=== PATIENT | female | born 1955 | race Caucasian/White ===

== ENCOUNTER 2021-06-03 19:17 | Inpatient (IN) | payer BC ==
--- NOTE | 2021-06-03 19:52 | ED ---
General Adult HPI - General Chief complaint: Shortness of Breath Stated complaint: COVID+, SOB, Nausea Vomiting Time Seen by Provider: 06/03/21 19:51 Source: patient Mode of arrival: wheelchair Limitations: no limitations - History of Present Illness Initial comments: Patient presents to the ED stating that she was diagnosed with Covid at [facility] yesterday, and she was admitted there overnight last night. She states that she did not receive any treatment besides IV steroids, and she was very upset with the care that she was receiving there, so today, she decided to leave AGAINST MEDICAL ADVICE, and she had her children bring her directly here in hopes for hospital admission here and better treatment/care. Patient states that she is not vaccinated against Covid. Patient states that her symptoms began about 1.5 weeks ago. Patient states that her symptoms initially began with muscle aches and headaches, but she then developed a cough and congestion. Patient states that she has been dyspneic for the past 2 days. Patient denies recent fever, focal numbness/weakness/neuro deficit, neck pain or stiffness, sore throat, chest pain or pressure, hemoptysis, palpitations, dizziness, nausea/vomiting/diarrhea, abdominal pain, dysuria or urinary symptoms, leg or calf swelling or pain, or any other symptoms or complaints. - Related Data Allergies Allergy/AdvReac Type Severity Reaction Status Date / Time clindamycin AdvReac Rash/Hives Verified 06/03/21 19:26 Penicillins AdvReac Rash/Hives Verified 06/03/21 19:26 Review of Systems ROS Statement: Those systems with pertinent positive or pertinent negative responses have been documented in the HPI. ROS Other: All systems not noted in ROS Statement are negative. Past Medical History Past Medical History: No Reported History History of Any Multi-Drug Resistant Organisms: None Reported Past Surgical History: Cholecystectomy Past Psychological History: No Psychological Hx Reported Smoking Status: Never smoker Past Alcohol Use History: None Reported Past Drug Use History: None Reported General Exam Limitations: no limitations General appearance: alert, in no apparent distress Head exam: Present: atraumatic, normocephalic Eye exam: Present: normal appearance, EOMI ENT exam: Present: mucous membranes moist Neck exam: Present: other (Trachea is in midline) Respiratory exam: Present: rhonchi, other (Equal breath sounds bilaterally). Absent: respiratory distress, wheezes, stridor Cardiovascular Exam: Present: normal rhythm, tachycardia, normal heart sounds, other (Normal radial pulses bilaterally) GI/Abdominal exam: Present: soft, other (Obese abdomen). Absent: tenderness, guarding Extremities exam: Present: other (Negative Homans sign bilaterally). Absent: tenderness, pedal edema, calf tenderness Neurological exam: Present: alert, oriented X3. Absent: motor sensory deficit Psychiatric exam: Present: normal affect, normal mood Skin exam: Present: warm, dry, intact, normal color Course Vital Signs 06/03/21 06/03/21 19:20 20:52 Temperature 98.9 F Pulse Rate 109 H 94 Respiratory 18 Rate Blood Pressure 151/77 O2 Sat by Pulse 84 L 91 L Oximetry - Reevaluation(s) Reevaluation #1: 06/03/21 21:41 Case, H&P and test results were discussed with Dr. Brown. He accepts hospital admission at this time. He recommends consulting Dr. Hopson (pulmonology). Given that the patient just had a CT angiogram of her chest performed at [facility] yesterday (due to elevated d-dimer), which showed no central pulmonary embolism (study was limited), he does not recommend repeating the patient's CT angiogram chest today. Instead, he recommends giving the patient a dose of Lovenox 40 mg subQ right now, and he states that Dr. Hopson will see the patient tomorrow and make further recommendations. He has no further recommendations at this time. 06/03/21 22:14 Patient denies development of any new symptoms while in the ED. Patient is aware of her test results, and she agrees with hospital admission at this time. EKG Findings - EKG Comments: EKG Findings:: Normal sinus rhythm, ventricular rate of 99 bpm, no ectopy, normal NE and QRS intervals, normal QT interval, normal axis, no ST or T-wave abnormality Medical Decision Making - Medical Decision Making Patient left from [facility] AMA after being admitted there last night. Patient came directly here to be admitted to our hospital, stating that she felt that we would give her better care. Patient's records were requested from [facility], and they were reviewed myself. Patient's imaging findings are suggestive of Covid pneumonia. Patient was treated with IV Decadron at [facility], so no IV Decadron was given here in the emergency department at this time. Dr. Brown has accepted hospital admission. Dr. Hopson (pulmonology) has been consulted. - Lab Data Result diagrams: 06/03/21 20:30 06/03/21 20:30 Lab Results 06/03/21 06/03/21 06/03/21 Range/Units 20:30 20:30 20:30 WBC 10.0 (3.8-10.6) k/uL RBC 4.27 (3.80-5.40) m/uL Hgb 12.9 (11.4-16.0) gm/dL Hct 38.7 (34.0-46.0) % MCV 90.6 (80.0-100.0) fL MCH 30.1 (25.0-35.0) pg MCHC 33.2 (31.0-37.0) g/dL RDW 12.9 (11.5-15.5) % Plt Count 286 (150-450) k/uL MPV 7.5 Neutrophils % 88 % Lymphocytes % 5 % Monocytes % 6 % Eosinophils % 0 % Basophils % 0 % Neutrophils # 8.8 H (1.3-7.7) k/uL Lymphocytes # 0.5 L (1.0-4.8) k/uL Monocytes # 0.6 (0-1.0) k/uL Eosinophils # 0.0 (0-0.7) k/uL Basophils # 0.0 (0-0.2) k/uL PT 10.5 (9.0-12.0) sec INR 1.0 (<1.2) APTT 23.6 (22.0-30.0) sec D-Dimer 1.07 H (<0.60) mg/L FEU Sodium 131 L (137-145) mmol/L Potassium 4.6 (3.5-5.1) mmol/L Chloride 98 (98-107) mmol/L Carbon Dioxide 25 (22-30) mmol/L Anion Gap 8 mmol/L BUN 15 (7-17) mg/dL Creatinine 0.58 (0.52-1.04) mg/dL Est GFR (CKD-EPI)AfAm >90 (>60 ml/min/1.73 sqM) Est GFR (CKD-EPI)NonAf >90 (>60 ml/min/1.73 sqM) Glucose 168 H (74-99) mg/dL Plasma Lactic Acid Zeb (0.7-2.0) mmol/L Calcium 8.4 (8.4-10.2) mg/dL Magnesium 2.0 (1.6-2.3) mg/dL Total Bilirubin 0.7 (0.2-1.3) mg/dL AST 192 H (14-36) U/L ALT 138 H (4-34) U/L Alkaline Phosphatase 105 (38-126) U/L Lactate Dehydrogenase 1568 H (313-618) U/L C-Reactive Protein 6.3 H (<1.0) mg/dL NT-Pro-B Natriuret Pep pg/mL Total Protein 6.8 (6.3-8.2) g/dL Albumin 3.3 L (3.5-5.0) g/dL Coronavirus (PCR) (Not Detectd) 06/03/21 06/03/21 06/03/21 Range/Units 20:30 20:30 20:45 WBC (3.8-10.6) k/uL RBC (3.80-5.40) m/uL Hgb (11.4-16.0) gm/dL Hct (34.0-46.0) % MCV (80.0-100.0) fL MCH (25.0-35.0) pg MCHC (31.0-37.0) g/dL RDW (11.5-15.5) % Plt Count (150-450) k/uL MPV Neutrophils % % Lymphocytes % % Monocytes % % Eosinophils % % Basophils % % Neutrophils # (1.3-7.7) k/uL Lymphocytes # (1.0-4.8) k/uL Monocytes # (0-1.0) k/uL Eosinophils # (0-0.7) k/uL Basophils # (0-0.2) k/uL PT (9.0-12.0) sec INR (<1.2) APTT (22.0-30.0) sec D-Dimer (<0.60) mg/L FEU Sodium (137-145) mmol/L Potassium (3.5-5.1) mmol/L Chloride (98-107) mmol/L Carbon Dioxide (22-30) mmol/L Anion Gap mmol/L BUN (7-17) mg/dL Creatinine (0.52-1.04) mg/dL Est GFR (CKD-EPI)AfAm (>60 ml/min/1.73 sqM) Est GFR (CKD-EPI)NonAf (>60 ml/min/1.73 sqM) Glucose (74-99) mg/dL Plasma Lactic Acid Zeb 1.4 (0.7-2.0) mmol/L Calcium (8.4-10.2) mg/dL Magnesium (1.6-2.3) mg/dL Total Bilirubin (0.2-1.3) mg/dL AST (14-36) U/L ALT (4-34) U/L Alkaline Phosphatase (38-126) U/L Lactate Dehydrogenase (313-618) U/L C-Reactive Protein (<1.0) mg/dL NT-Pro-B Natriuret Pep 53 pg/mL Total Protein (6.3-8.2) g/dL Albumin (3.5-5.0) g/dL Coronavirus (PCR) Detected A (Not Detectd) - Radiology Data Radiology results: report reviewed (Chest x-ray: Pulmonary edema. This could relate to RDS.) CT angiography chest with IV contrast: Disposition Clinical Impression: Pneumonia due to COVID-19 virus, Hypoxia Disposition: ADMITTED IP TO THIS [facility] Condition: Stable Is patient prescribed a controlled substance at d/c from ED?: No Time of Disposition: 21:58
--- NOTE | 2021-06-03 20:46 | XR ---
EXAMINATION TYPE: XR chest 1V portable DATE OF EXAM: 06/03/2021 COMPARISON: NONE HISTORY: Pneumonia TECHNIQUE: Single view FINDINGS: There is pulmonary interstitial and airspace edema. There are no hilar masses. Bony thorax is intact. IMPRESSION: Pulmonary edema. This could relate to RDS.
[2021-06-03 20:56] LABS: Basophils % (A) 0 %; Eosinophils % (A) 0 %; HCT 38.7 % (34.0-46.0); HGB 12.9 gm/dL (11.4-16.0); Lymphocytes # (A) 0.5 k/uL (1.0-4.8); Lymphocytes % (A) 5 %; MCH 30.1 pg (25.0-35.0); MCHC 33.2 g/dL (31.0-37.0); MCV 90.6 fL (80.0-100.0); Mean Platelet Volume 7.5; Monocytes # (A) 0.6 k/uL (0-1.0); Monocytes % (A) 6 %; Neutrophils # (A) 8.8 k/uL (1.3-7.7); Neutrophils % (A) 88 %; Platelet Count 286 k/uL (150-450); RBC 4.27 m/uL (3.80-5.40); RDW 12.9 % (11.5-15.5)
[2021-06-03 21:08] LABS: ALT 138 U/L (4-34); AST 192 U/L (14-36); African American GFR (CKD) >90 (>60 ml/min/1.73 sqM); Albumin 3.3 g/dL (3.5-5.0); Alkaline Phosphatase 105 U/L (38-126); Anion Gap 8 mmol/L; Blood Urea Nitrogen 15 mg/dL (7-17); C Reactive Protein 6.3 mg/dL (<1.0); Calcium 8.4 mg/dL (8.4-10.2); Carbon Dioxide 25 mmol/L (22-30); Chloride 98 mmol/L (98-107); Glucose 168 mg/dL (74-99); LDH 1568 U/L (313-618); Non-African American GFR(CKD) >90 (>60 ml/min/1.73 sqM); Potassium 4.6 mmol/L (3.5-5.1); Sodium 131 mmol/L (137-145); Total Bilirubin 0.7 mg/dL (0.2-1.3); Total Protein 6.8 g/dL (6.3-8.2)
[2021-06-03 21:23] LABS: Partial Thromboplastin Time 23.6 sec (22.0-30.0); Prothrombin Time 10.5 sec (9.0-12.0)
[2021-06-03] MEDS ORDERED: ENOXAPARIN 40 MG/0.4 ML SYRINGE SQ STA (21:43)
[2021-06-04] MEDS ORDERED: ACETAMINOPHEN TAB 500 MG TAB PO PRN (01:26)
[2021-06-04] MEDS: ALBUTEROL HFA INHALER INHALATION PRN ×4 (01:31→19:47)
[2021-06-04 07:48] LABS: Basophils % (A) 0 %; Eosinophils % (A) 0 %; HCT 40.3 % (34.0-46.0); HGB 13.2 gm/dL (11.4-16.0); Lymphocytes # (A) 0.9 k/uL (1.0-4.8); Lymphocytes % (A) 10 %; MCH 30.2 pg (25.0-35.0); MCHC 32.7 g/dL (31.0-37.0); MCV 92.5 fL (80.0-100.0); Mean Platelet Volume 7.7; Monocytes # (A) 0.7 k/uL (0-1.0); Monocytes % (A) 7 %; Neutrophils # (A) 7.9 k/uL (1.3-7.7); Neutrophils % (A) 81 %; Platelet Count 321 k/uL (150-450); RBC 4.36 m/uL (3.80-5.40); RDW 12.9 % (11.5-15.5); WBC 9.7 k/uL (3.8-10.6)
[2021-06-04 08:04] LABS: ALT 134 U/L (4-34); AST 140 U/L (14-36); African American GFR (CKD) >90 (>60 ml/min/1.73 sqM); Albumin 3.1 g/dL (3.5-5.0); Alkaline Phosphatase 112 U/L (38-126); Anion Gap 8 mmol/L; Blood Urea Nitrogen 13 mg/dL (7-17); Calcium 8.3 mg/dL (8.4-10.2); Carbon Dioxide 25 mmol/L (22-30); Chloride 100 mmol/L (98-107); Glucose 140 mg/dL (74-99); Non-African American GFR(CKD) >90 (>60 ml/min/1.73 sqM); Potassium 4.6 mmol/L (3.5-5.1); Sodium 133 mmol/L (137-145); Total Bilirubin 0.6 mg/dL (0.2-1.3); Total Protein 6.6 g/dL (6.3-8.2)
[2021-06-04] MEDS: SODIUM CHLORIDE 0.9% 1,000 ML IV SCH (12:21)
[2021-06-04 12:38] LABS: Appearance,Urine Clear (Clear); Bacteria,Urine Many /hpf; Bilirubin,Urine Negative (Negative); Blood,Urine Negative (Negative); Color,Urine Yellow; Glucose,Urine (UA) Negative (Negative); Ketones,Urine Negative (Negative); Leukocyte Esterase,Urine Large (Negative); Mucus,Urine Rare /hpf; Nitrite,Urine Positive (Negative); PH, Urine 6.5 (5.0-8.0); Protein,Urine 1+ (Negative); RBC,Urine 1 /hpf (0-5); Specific Gravity,Urine 1.013 (1.001-1.035); Squamous Epithelial Cell,Urine 1 /hpf (0-4); Urobilinogen,Urine <2.0 mg/dL (<2.0); WBC,Urine 46 /hpf (0-5)
[2021-06-04] MEDS: dexAMETHasone 2 MG TAB PO SCH (16:21)
[2021-06-04] MEDS: ZINC SULFATE 220 MG CAP PO SCH (16:21)
[2021-06-04] MEDS: CHOLECALCIFEROL 25 MCG (1000 IU) TABLET PO SCH (16:21)
--- NOTE | 2021-06-04 17:00 | P.CNPUL ---
History of Present Illness Consult date: 06/04/21 Requesting physician: Larry Brown Reason for consult: dyspnea, cough, hypoxemia, pneumonia, abnormal CXR/CT Chief complaint: Shortness of breath. History of present illness: Pulmonary consult dated 06/04/2021. 65-year-old female who presents to the emergency department on June 03 complaining of shortness of breath, nausea, and vomiting. Currently, her is in the hospital with coronavirus associated pneumonia. This patient is un-vaccinated. She apparently was recently diagnosed as having coronavirus infection, although she's been symptomatic for a number of days. She's been sick for at least a week and a half or so. She apparently was recently at [facility], and received some IV corticosteroids. She apparently was decided to leave AGAINST MEDICAL ADVICE. The patient complained of a number of symptoms including muscle aches, headaches, cough, congestion, and shortness of breath. The patient apparently does not have any significant past medical hi story, and only uses supplements at home she does have an ALLERGY to clindamycin, latex, and penicillin. Chest x-ray shows diffuse bilateral infiltrates. White count 9.7, hemoglobin 13.2, hematocrit 40.3, and platelet count 321,000. D-dimer was 1.07. Sodium 133, potassium 4.6, chlorides 100, CO2 25, anion gap 8, E1 13, with a creatinine of 0.49. AST 140, ALT 134. LDH 1568. C-reactive protein 6.3. Pro-calcitonin level is 0.11. Coronavirus testing on June 03 was positive. Review of Systems REVIEW OF SYSTEMS: CONSTITUTIONAL: Fever, chills, muscle aches, and joint aches. NEUROLOGIC: [ Negative.] HEENT: [ Negative.] CARDIAC: [Negative.] PULMONARY: Shortness of breath, cough, chest congestion. GI: Nausea and vomiting. : [Negative.] RHEUMATOLOGIC: [ Negative.] IMMUNOLOGIC: [ Negative.] ENDOCRINE: [Negative. ] DERMATOLOGIC: [Negative.] Past Medical History Past Medical History: No Reported History History of Any Multi-Drug Resistant Organisms: None Reported Past Surgical History: Cholecystectomy Past Psychological History: No Psychological Hx Reported Smoking Status: Never smoker Past Alcohol Use History: None Reported Past Drug Use History: None Reported - Past Family History Mother Family Medical History: No Reported History Medications and Allergies Home Medications Medication Instructions Recorded Confirmed Type Ascorbic Acid [Vitamin C] 1,000 mg PO DAILY 06/03/21 06/03/21 History Cholecalciferol (Vitamin D3) 125 mcg PO DAILY 06/03/21 06/03/21 History [Vitamin D3 (125 MCG = 5,000 IU)] Cyanocobalamin (Vitamin B-12) 1,000 mcg PO DAILY 06/03/21 06/03/21 History [Vitamin B-12] Multivitamins, Thera [Multivitamin 1 tab PO DAILY 06/03/21 06/03/21 History (formulary)] Selenium 100 mcg PO DAILY 06/03/21 06/03/21 History Thyroid Otc Supplement 1 tab PO DAILY 06/03/21 06/03/21 History Ubidecarenone [Co Q-10] 100 mg PO DAILY 06/03/21 06/03/21 History Zinc 50 mg PO DAILY 06/03/21 06/03/21 History Allergies Allergy/AdvReac Type Severity Reaction Status Date / Time clindamycin Allergy Severe Rash/Hives Verified 06/04/21 08:39 Penicillins Allergy Severe Rash/Hives Verified 06/04/21 08:39 latex Allergy Intermediate Itching Verified 06/04/21 08:39 Physical Exam Osteopathic Statement: *. No significant issues noted on an osteopathic structural exam other than those noted in the History and Physical/Consult. Vitals: Vital Signs Temp Pulse Pulse Resp BP BP Pulse Ox 06/04/21 14:00 97.5 F L 91 20 144/86 92 L 06/04/21 13:50 20 06/04/21 08:50 97.8 F 87 18 155/92 90 L 06/04/21 08:00 20 06/04/21 07:25 98.0 F 81 20 139/81 92 L 06/04/21 05:37 97.8 F 66 18 136/78 90 L 06/04/21 01:37 90 L 06/03/21 22:00 99.3 F 89 18 130/84 93 L 06/03/21 20:52 94 91 L 06/03/21 19:20 98.9 F 109 H 18 151/77 84 L Intake and Output 06/04/21 06/04/21 06/04/21 06:59 14:59 22:59 Intake Total 20 Output Total 100 Balance -80 Intake: Oral 20 Output: Urine 100 Other: # Voids 1 Weight 113.398 kg No acute distress, oriented 3. Currently on 5 L nasal cannula. Saturations between 90 and 92%. HEENT examination is grossly unremarkable. Neck supple. Full range of motion. No adenopathy thyromegaly or neck vein distention. Cardiovascular examination reveals regular rhythm rate. S1-S2 normal. No S3 or S4. No discernible murmur noted. Heart sounds are distant. Heart rate 91 bpm. Lungs reveal bilateral coarse rhonchi. Breath sounds are diminished. Crackles at the bases. Breath sounds are equal bilaterally. No wheezes. Abdomen soft bowel sounds are heard. No masses or tenderness. Extremities are intact. No cyanosis clubbing or edema. Skin is without rash or lesion. Neurologic examination is brief but nonfocal. Results - Laboratory Findings CBC and BMP: 06/04/21 07:06 06/04/21 07:06 PT/INR, D-dimer PT 10.5 sec (9.0-12.0) 06/03/21 20:30 INR 1.0 (<1.2) 06/03/21 20:30 D-Dimer 1.07 mg/L FEU (<0.60) H 06/03/21 20:30 Abnormal lab findings: Abnormal Labs 06/03/21 06/03/21 06/03/21 20:30 20:30 20:30 Neutrophils # 8.8 H Lymphocytes # 0.5 L D-Dimer 1.07 H Sodium 131 L Creatinine Glucose 168 H Calcium Ferritin 765.0 H AST 192 H ALT 138 H Lactate Dehydrogenase 1568 H C-Reactive Protein 6.3 H Albumin 3.3 L Procalcitonin Urine Protein Urine Nitrite Ur Leukocyte Esterase Urine WBC Urine WBC Clumps Urine Bacteria Urine Mucus Coronavirus (PCR) 06/03/21 06/03/21 06/04/21 20:30 20:45 07:06 Neutrophils # 7.9 H Lymphocytes # 0.9 L D-Dimer Sodium Creatinine Glucose Calcium Ferritin AST ALT Lactate Dehydrogenase C-Reactive Protein Albumin Procalcitonin 0.11 H Urine Protein Urine Nitrite Ur Leukocyte Esterase Urine WBC Urine WBC Clumps Urine Bacteria Urine Mucus Coronavirus (PCR) Detected A 06/04/21 06/04/21 07:06 12:18 Neutrophils # Lymphocytes # D-Dimer Sodium 133 L Creatinine 0.49 L Glucose 140 H Calcium 8.3 L Ferritin AST 140 H ALT 134 H Lactate Dehydrogenase C-Reactive Protein Albumin 3.1 L Procalcitonin Urine Protein 1+ H Urine Nitrite Positive H Ur Leukocyte Esterase Large H Urine WBC 46 H Urine WBC Clumps Occasional H Urine Bacteria Many H Urine Mucus Rare H Coronavirus (PCR) - Diagnostic Findings Chest x-ray: image reviewed Assessment and Plan Assessment: Acute hypoxemic respiratory failure secondary to coronavirus associated pneumonia. Mild transaminitis secondary to coronavirus infection. Obesity. Plan: Plan dated 06/04/2021. The patient is not a candidate for REM. The patient should get Lovenox 40 mg subcu daily, and also Decadron 6 mg a day. The patient also should receive vitamin C, vitamin D3, and zinc. The patient is not sick enough to receive monoclonal antibody against interleukin-6. The primary service is apparently treating her with Rocephin for a possible urinary tract infection. The pro- calcitonin level is relatively low. If she has asymptomatic bacteriuria, she should not be treated. We will continue to follow make recommendations where appropriate. Prognosis is guarded. The patient is un-vaccinated. So was her . Time with Patient: Greater than 30
[2021-06-04] MEDS: ENOXAPARIN 40 MG/0.4 ML SYRINGE SQ SCH (17:14)
--- NOTE | 2021-06-04 18:00 | US ---
EXAMINATION TYPE: US venous doppler duplex LE DATE OF EXAM: 06/04/2021 5:45 PM COMPARISON: NONE CLINICAL HISTORY: dvt. Shortness of breath. SIDE PERFORMED: Bilateral TECHNIQUE: The lower extremity deep venous system is examined utilizing real time linear array sonog marlen with graded compression, doppler sonography and color-flow sonography. VESSELS IMAGED: Common Femoral Vein Deep Femoral Vein Greater Saphenous Vein * Femoral Vein Popliteal Vein Small Saphenous Vein * Proximal Calf Veins (* superficial vessels) Exam is limited due to patient body habitus. Right Leg: Exam is limited in the groin, unable to evaluate upper CFV. No evidence of DVT in veins im aged at this time. Left Leg: Exam is limited in the groin, unable to evaluate upper CFV. No evidence of DVT in veins timoteo ged at this time. IMPRESSION: No evidence of deep vein thrombosis in the legs.
--- NOTE | 2021-06-04 18:15 | HP ---
HISTORY AND PHYSICAL DATE OF SERVICE: 06/04/2021. CHIEF COMPLAINT: Shortness of breath. HISTORY OF PRESENT ILLNESS: This 65-year-old woman with a past medical history of multiple medical problems, including cholecystectomy, was recently admitted with COVID-19 pneumonia to [facility]. Apparently the patient was offered remdesivir during that time by Infectious Disease, and the patient refused. The patient apparently left the hospital AGAINST MEDICAL ADVICE, signed out and presented to the ER with complaints of shortness of breath and cough and other symptoms. The patient is admitted for further evaluation and treatment at this time. The symptoms actually began about 10 days ago from now. There is no history of any fever, rigors or chills. No history of headache, loss of consciousness, seizures. The inflammatory markers of COVID-19 are elevated. Procalcitonin is 0.[address] Finch is following the patient closely. A chest x- ray which was reviewed personally by me showed extensive bilateral infiltrates, right more the left, indicating COVID-19 pneumonia. The patient is admitted for further evaluation and treatment. D-dimer is also elevated. There is no history of any fever, rigor or chills at this time. PAST MEDICAL HISTORY: History of cholecystectomy. HOME MEDICATIONS: Zinc, coenzyme Q,, multivitamins and vitamin B12, ascorbic acid. Doses are reviewed. ALLERGIES: CLINDAMYCIN, PENICILLIN, LATEX. FAMILY HISTORY: No history of heart disease or strokes in the family. SOCIAL HISTORY: No history of smoking. No history of alcohol intake. REVIEW OF SYSTEMS: ENT: No diminished hearing. No diminished vision. CARDIOVASCULAR SYSTEM: No angina, palpitations. RESPIRATORY SYSTEM: As mentioned earlier. GI: No nausea, vomiting, diarrhea. : No dysuria. NERVOUS SYSTEM: No numbness, weakness. ALLERGY/IMMUNOLOGY: No asthma or hay fever. MUSCULOSKELETAL: As mentioned earlier. HEMATOLOGY/ONCOLOGY: No history of anemia. ENDOCRINE: No history of diabetes or hypothyroidism. CONSTITUTIONAL: As mentioned earlier. DERMATOLOGY: Negative. RHEUMATOLOGY: Negative. PSYCHIATRY: As mentioned earlier. PHYSICAL EXAMINATION: Patient alert and oriented x3. Pulse 91, blood pressure 144/83, respiration 20, temperature 97.5, pulse ox 92% on room air. HEENT: Conjunctivae normal. NECK: No jugular venous distention. CARDIOVASCULAR: S1, S2 muffled. RESPIRATION: Breath sounds diminished at the bases. A few scattered rhonchi and crackles. ABDOMEN: Soft, obese, non-tender. LEGS: No edema. No swelling. NERVOUS SYSTEM: Higher functions as mentioned earlier. Moves all 4 limbs. No focal motor or sensory deficit. LYMPHATICS: No lymph node palpable in neck, axillae or groin. SKIN: No ulcer, rash, bleeding. JOINTS: No active deforming arthropathy. LABS: D-dimer is 1.07 ASSESSMENT: 1. Acute COVID-19 bilateral interstitial pneumonia with acute hypoxic respiratory failure. 2. Hyponatremia. 3. Elevated D-dimer. 4. Elevated inflammatory markers of COVID-19, including ferritin and LDH and CRP. 5. Elevated AST, ALT, possibly acute hepatitis secondary to COVID-19. 6. Elevated procalcitonin level. 7. Rule out urinary tract infection. 8. History of cholecystectomy. 9. FULL CODE. 10.Morbid obesity. RECOMMENDATIONS AND DISCUSSION: In this 65-year-old woman who presented with multiple complex medical issues, we will monitor the patient closely, continue the current medications, continue symptomatic treatment. I would recommend repeat CT angio to rule out the possibility of acute pulmonary embolism and ultrasound of the legs to rule out the possibility of DVT. Continue with the bronchodilators, Lovenox, usual regimen for COVID-19. I would also recommend empiric antibiotics and obtain cultures, including sputum culture. Closely follow. Pulmonary and Infectious Disease have been consulted. Guarded prognosis. Further recommendations to follow. I also recommend that the patient follow up with a primary physician in the outpatient setting. See orders for further details. MMODL / IJN: [id number] / MTDD
[2021-06-04] MEDS: ASCORBIC ACID 500 MG TAB PO SCH (20:38)
--- NOTE | 2021-06-04 22:46 | CT ---
EXAMINATION TYPE: CT angio chest DATE OF EXAM: 06/04/2021 COMPARISON: None HISTORY: Difficulty breathing, covid. CT DLP: 600.9 mGycm Automated exposure control for dose reduction was used. CONTRAST: Performed with IV Contrast, patient injected with 100ml mL of Isovue 370. Images obtained from the thoracic inlet to the diaphragm with IV contrast. There are 3-D post process ed images. There is patchy upper and lower lobe bilateral interstitial and airspace infiltrates. Heart is top no rmal in size. There is no pleural effusion. There is no pericardial effusion. There are bilateral bronchial lymph nodes up to 1.5 cm. There is no mediastinal adenopathy. Thoracic aorta is intact. There is no aneurysm or dissection. There is no evidence of filling defect in the pulmonary arteries. There is some spurring in the thoracic spine. There is no compression fracture. Ribs appear intact. S ternum is intact. IMPRESSION: No evidence of pulmonary embolism. Extensive pulmonary infiltrates consistent with multifocal pneumon ia and RDS.
[2021-06-05] MEDS: ALBUTEROL HFA INHALER INHALATION PRN ×2 (08:39→19:39)
--- NOTE | 2021-06-05 08:43 | P.CONS ---
History of Present Illness - Reason for Consult Consult date: 06/04/21 covid 19 pneumonia Requesting physician: Abby Mukherjee - Chief Complaint shortness of breath x few days - History of Present Illness History of present illness : Patient is 65-year-old female who is not vaccinated for COVID-19 presented initially to the [facility] for evaluation of increasing shortness of breath and cough in this patient symptom has been going on for more than 10 days patient was started on steroids anticoagulation and fluids patient did refused remdesivir at that facility even though it was offered to her, patient mention she was not getting better within 24 hours hence the patient left AGAINST MEDICAL ADVICE and her daughter brought her to the [facility] for evaluation patient symptoms started more than 10 days ago and initially has muscle aches and headaches subsequent developing cough and congestion and increasing shortness of breath for 2 days before presentation to the hospital on arrival to the ER patient was afebrile patient was hypoxic with O2 sats of 84% on room air is currently 90% on 6 L n heriberto cannula patient did have a normal white count with no lymphopenia D-dimer was mildly elevated creatinine is normal and he was under elevated did have a positive Covid test blood culture has been obtained patient did have a chest x- ray pulmonary edema could relate to RDS patient did have a CT angiogram of the chest no evidence of PE extensive pulmonary infiltrate consistent with multifocal pneumonia and ARDS patient was admitted to hospital infectious disease was consulted for further management Review of system: CONSTITUTIONAL: Positive for weakness denies high-grade fever. EYES: No complaint. ENT: No complaint. RESPIRATORY: As per history of present illness. CARDIOVASCULAR: No complaint. GENITOURINARY: No complaint. GASTROINTESTINAL: As per history of present illness. MUSCULOSKELETAL: No complaint. INTEGUMENTARY: No complaint. PSYCHOLOGIC: No complaint. ENDOCRINE: No complaint. NEUROLOGIC: No complaint. Past medical history : Reviewed, documented below Past surgical history : Reviewed, documented below Social history: Reviewed, documented below Medications: Reviewed, as documented below EXAMINATION: Vital sigans= Reviewed and documented below GENERAL DESCRIPTION: Middle-aged female lying in bed, no distress. No tachypnea or accessory muscle of respiration use. HEENT: Shows Pallor , no scleral icterus. Oral mucous membrane is dry. NECK: Trachea central, no thyromegaly. LUNGS: Unlabored breathing. Decrease intensity of breath sounds. No wheeze or crackle. HEART: S1, S2, regular rate and rhythm. ABDOMEN: Soft, no tenderness , guarding or rigidity EXTREMITIES: No edema of feet. SKIN: No rash, no masses palpable. NEUROLOGICAL: The patient is awake, alert, oriented x3, mood and affect normal. LABS AND RADIOLOGY: Reviewed results see below Assessment : Patient presented to hospital with increasing shortness of breath and cough in this patient symptom has been going on for more than 10 days patient did have evidence of hypoxemia and extensive multifocal pneumonia secondary to COVID-19 infection patient is currently out of the therapeutic window for remdesivir per [facility] policy and clinical suspicion low for secondary bacterial pneumonia Plan: 1-patient to continue with the dexamethasone Lovenox zinc and ascorbic acid 2-pt did refused remdesivir at [facility] and is out of 7 days window per [facility] policy and did not qualify for Barcinitab 3-droplet isolation and respiratory support We will follow on clinical condition and cultures to further adjust medication if needed Thank you for this consultation we will follow the patient along with you Past Medical History Past Medical History: No Reported History History of Any Multi-Drug Resistant Organisms: None Reported Past Surgical History: Cholecystectomy Past Psychological History: No Psychological Hx Reported Smoking Status: Never smoker Past Alcohol Use History: None Reported Past Drug Use History: None Reported - Past Family History Mother Family Medical History: No Reported History Medications and Allergies Home Medications Medication Instructions Recorded Confirmed Type Ascorbic Acid [Vitamin C] 1,000 mg PO DAILY 06/03/21 06/03/21 History Cholecalciferol (Vitamin D3) 125 mcg PO DAILY 06/03/21 06/03/21 History [Vitamin D3 (125 MCG = 5,000 IU)] Cyanocobalamin (Vitamin B-12) 1,000 mcg PO DAILY 06/03/21 06/03/21 History [Vitamin B-12] Multivitamins, Thera [Multivitamin 1 tab PO DAILY 06/03/21 06/03/21 History (formulary)] Selenium 100 mcg PO DAILY 06/03/21 06/03/21 History Thyroid Otc Supplement 1 tab PO DAILY 06/03/21 06/03/21 History Ubidecarenone [Co Q-10] 100 mg PO DAILY 06/03/21 06/03/21 History Zinc 50 mg PO DAILY 06/03/21 06/03/21 History Allergies Allergy/AdvReac Type Severity Reaction Status Date / Time clindamycin Allergy Severe Rash/Hives Verified 06/04/21 08:39 Penicillins Allergy Severe Rash/Hives Verified 06/04/21 08:39 latex Allergy Intermediate Itching Verified 06/04/21 08:39 Physical Exam Vitals: Vital Signs Temp Pulse Pulse Resp BP BP Pulse Ox 06/04/21 14:00 97.5 F L 91 20 144/86 92 L 06/04/21 13:50 20 06/04/21 08:50 97.8 F 87 18 155/92 90 L 06/04/21 08:00 20 06/04/21 07:25 98.0 F 81 20 139/81 92 L 06/04/21 05:37 97.8 F 66 18 136/78 90 L 06/04/21 01:37 90 L 06/03/21 22:00 99.3 F 89 18 130/84 93 L 06/03/21 20:52 94 91 L 06/03/21 19:20 98.9 F 109 H 18 151/77 84 L Intake and Output 06/04/21 06/04/21 06/04/21 06:59 14:59 22:59 Intake Total 20 Output Total 100 Balance -80 Intake: Oral 20 Output: Urine 100 Other: Weight 113.398 kg Results CBC & Chem 7: 06/04/21 07:06 06/04/21 07:06 Labs: Abnormal Lab Results - Last 24 Hours (Table) 06/03/21 06/03/21 06/03/21 Range/Units 20:30 20:30 20:30 Neutrophils # 8.8 H (1.3-7.7) k/uL Lymphocytes # 0.5 L (1.0-4.8) k/uL D-Dimer 1.07 H (<0.60) mg/L FEU Sodium 131 L (137-145) mmol/L Creatinine (0.52-1.04) mg/dL Glucose 168 H (74-99) mg/dL Calcium (8.4-10.2) mg/dL Ferritin 765.0 H (10.0-291.0) ng/mL AST 192 H (14-36) U/L ALT 138 H (4-34) U/L Lactate Dehydrogenase 1568 H (313-618) U/L C-Reactive Protein 6.3 H (<1.0) mg/dL Albumin 3.3 L (3.5-5.0) g/dL Procalcitonin (0.02-0.09) ng/mL Urine Protein (Negative) Urine Nitrite (Negative) Ur Leukocyte Esterase (Negative) Urine WBC (0-5) /hpf Urine WBC Clumps (None) /hpf Urine Bacteria (None) /hpf Urine Mucus (None) /hpf Coronavirus (PCR) (Not Detectd) 06/03/21 06/03/21 06/04/21 Range/Units 20:30 20:45 07:06 Neutrophils # 7.9 H (1.3-7.7) k/uL Lymphocytes # 0.9 L (1.0-4.8) k/uL D-Dimer (<0.60) mg/L FEU Sodium (137-145) mmol/L Creatinine (0.52-1.04) mg/dL Glucose (74-99) mg/dL Calcium (8.4-10.2) mg/dL Ferritin (10.0-291.0) ng/mL AST (14-36) U/L ALT (4-34) U/L Lactate Dehydrogenase (313-618) U/L C-Reactive Protein (<1.0) mg/dL Albumin (3.5-5.0) g/dL Procalcitonin 0.11 H (0.02-0.09) ng/mL Urine Protein (Negative) Urine Nitrite (Negative) Ur Leukocyte Esterase (Negative) Urine WBC (0-5) /hpf Urine WBC Clumps (None) /hpf Urine Bacteria (None) /hpf Urine Mucus (None) /hpf Coronavirus (PCR) Detected A (Not Detectd) 06/04/21 06/04/21 Range/Units 07:06 12:18 Neutrophils # (1.3-7.7) k/uL Lymphocytes # (1.0-4.8) k/uL D-Dimer (<0.60) mg/L FEU Sodium 133 L (137-145) mmol/L Creatinine 0.49 L (0.52-1.04) mg/dL Glucose 140 H (74-99) mg/dL Calcium 8.3 L (8.4-10.2) mg/dL Ferritin (10.0-291.0) ng/mL AST 140 H (14-36) U/L ALT 134 H (4-34) U/L Lactate Dehydrogenase (313-618) U/L C-Reactive Protein (<1.0) mg/dL Albumin 3.1 L (3.5-5.0) g/dL Procalcitonin (0.02-0.09) ng/mL Urine Protein 1+ H (Negative) Urine Nitrite Positive H (Negative) Ur Leukocyte Esterase Large H (Negative) Urine WBC 46 H (0-5) /hpf Urine WBC Clumps Occasional H (None) /hpf Urine Bacteria Many H (None) /hpf Urine Mucus Rare H (None) /hpf Coronavirus (PCR) (Not Detectd)
[2021-06-05] MEDS: CHOLECALCIFEROL 25 MCG (1000 IU) TABLET PO SCH (09:00)
[2021-06-05] MEDS: dexAMETHasone 2 MG TAB PO SCH (09:00)
[2021-06-05] MEDS: SODIUM CHLORIDE 0.9% 1,000 ML IV SCH (09:00)
[2021-06-05] MEDS: ZINC SULFATE 220 MG CAP PO SCH (09:01)
[2021-06-05] MEDS: ENOXAPARIN 40 MG/0.4 ML SYRINGE SQ SCH ×2 (09:01→21:43)
[2021-06-05] MEDS: ASCORBIC ACID 500 MG TAB PO SCH ×2 (09:01→21:43)
[2021-06-05 09:18] LABS: HCT 37.9 % (37.2-46.3); MCH 29.9 pg (27.0-32.0); MCHC 31.7 g/dL (32.0-37.0); MCV 94.3 fL (80.0-97.0); Mean Platelet Volume 9.6 fL (9.5-12.2); Platelet Count 373 X 10*3/uL (140-440); RBC 4.02 X 10*6/uL (4.10-5.20); RDW 13.7 % (11.5-14.5); WBC 10.71 X 10*3/uL (4.50-10.00)
[2021-06-05 09:30] LABS: African American GFR (CKD) 118.2 (60.0-200.0); Anion Gap 13.3 mmol/L (10.00-18.00); BUN/Creat Ratio 25.58 Ratio (12.00-20.00); Blood Urea Nitrogen 13.2 mg/dL (9.0-27.0); Calcium 8.2 mg/dL (8.7-10.3); Carbon Dioxide 21.3 mmol/L (20.0-27.5); Non-African American GFR(CKD) 101.9 (60.0-200.0); Potassium 4.8 mmol/L (3.5-5.5)
[2021-06-05 10:13] LABS: Basophils # (M) 0 X 10*3/uL (0.00-0.10); Eosinophils # (M) 0 X 10*3/uL (0.04-0.35); Lymphocytes # (M) 0.32 X 10*3/uL (0.90-5.00); Metamyelocytes % 3 % (0-0); Monocytes # (M) 0.21 X 10*3/uL (0.20-1.00); Neutrophils # (M) 9.85 X 10*3/uL (2.00-8.90); Neutrophils % (M) 92 %
--- NOTE | 2021-06-05 18:22 | P.PN ---
Subjective Progress Note Date: 06/05/21 on today's evaluation of 06/05/2021, the patient is on 6 L of oxygen by nasal cannula. There is a morbidly obese female patient with currently has COVID 19 related pneumonia. The patient is currently on Decadron and she was outside the window for Remdesivir. The patient is not having any major respiratory difficulties. Her breathing is nonlabored. She is having her dinner and she has a good appetite. No other significant events otherwise for now. She also has an underlying gram-negative bacillus in her urine consistent with UTI and the patient is currently on IV Rocephin. She is afebrile. She is hemodynamically stable. Note that the patient was recently at [facility]. She received some IV steroids. She decided to leave AGAINST MEDICAL ADVICE and she ended up coming and being hospitalized in our hospital. Objective - Vital Signs Vital signs: Vital Signs Temp 97.7 F 06/05/21 14:00 Pulse 90 06/05/21 14:00 Resp 20 06/05/21 14:00 BP 175/70 06/05/21 14:00 Pulse Ox 93 L 06/05/21 14:00 Intake & Output 06/04/21 06/05/21 06/05/21 18:59 06:59 18:59 Intake Total 20 100 360 Output Total 100 1 Balance -80 100 359 Weight 113.398 kg Intake: Oral 20 100 360 Output: Urine 100 Urine/Stool Mix 1 Other: Voiding Method Bedside Commode # Voids 1 2 1 - Exam No acute distress, oriented 3. Currently on 6 L nasal cannula. Saturations between 90 and 92%. HEENT examination is grossly unremarkable. Neck supple. Full range of motion. No adenopathy thyromegaly or neck vein distention. Cardiovascular examination reveals regular rhythm rate. S1-S2 normal. No S3 or S4. No discernible murmur noted. Heart sounds are distant. Heart rate 91 bpm. Lungs reveal bilateral coarse rhonchi. Breath sounds are diminished. Crackles at the bases. Breath sounds are equal bilaterally. No wheezes. Abdomen soft bowel sounds are heard. No masses or tenderness. Extremities are intact. No cyanosis clubbing or edema. Skin is without rash or lesion. Neurologic examination is brief but nonfocal. - Labs CBC & Chem 7: 06/05/21 05:38 06/05/21 05:38 Labs: Abnormal Lab Results - Last 24 Hours (Table) 06/05/21 06/05/21 Range/Units 05:38 05:38 WBC 10.71 H (4.50-10.00) X 10*3/uL RBC 4.02 L (4.10-5.20) X 10*6/uL MCHC 31.7 L (32.0-37.0) g/dL Metamyelocytes % 3 H (0-0) % Neutrophils # (Manual) 9.85 H (2.00-8.90) X 10*3/uL Lymphocytes # (Manual) 0.32 L (0.90-5.00) X 10*3/uL Eosinophils # (Manual) 0 L (0.04-0.35) X 10*3/uL Creatinine 0.5 L (0.6-1.5) mg/dL BUN/Creatinine Ratio 25.58 H (12.00-20.00) Ratio Glucose 149 H (70-110) mg/dL Calcium 8.2 L (8.7-10.3) mg/dL Microbiology - Last 24 Hours (Table) 06/04/21 12:18 Urine Culture - Preliminary Urine,Clean Catch Gram Neg Bacilli 06/03/21 20:45 Blood Culture - Preliminary Blood No Growth after 24 hours 06/03/21 20:30 Blood Culture - Preliminary Blood No Growth after 24 hours Assessment and Plan Plan: 1 Acute hypoxemic respiratory failure secondary to coronavirus associated pneumonia.. The patient is currently on Decadron and the patient was outside the window for Remdesivir. Inflammatory markers were checked. D-dimer is mildly elevated. The patient is currently on Lovenox 30 mg subcu for DVT prophylaxis. 2 morbid obesity 3 gram-negative bacillus in the urine consistent with UTI and the patient is currently on IV Rocephin 4 Mild transaminitis secondary to coronavirus infection. Plan Monitor the oxygenation Repeat inflammatory markers for tomorrow Continue Decadron for now Continue IV Rocephin pending further cultures from the urine Continues incentive spirometer Clinically stable and the patient has good appetite. We'll continue to follow.
--- NOTE | 2021-06-05 23:34 | PN ---
PROGRESS NOTE DATE OF SERVICE: 06/05/2021 REASON FOR FOLLOWUP: Acute COVID-19 pneumonia. INTERVAL HISTORY: The patient is afebrile. The patient is breathing slightly comfortably. The patient denies having any chest pain or worsening cough or sputum production. No abdominal pain or diarrhea. PHYSICAL EXAMINATION: Blood pressure 175/70 with a pulse of 90, temperature 97.7. She is 93% on 6 L nasal cannula. General description is a middle-aged female lying in bed in no distress. Respiratory system: Unlabored breathing, decreased intensity of breath sounds. No wheeze. Heart S1, S2. Regular rate and rhythm. Abdomen soft, no tenderness. LABS: Hemoglobin is 12, white count 10.71. Urine is showing a Gram-negative. CT angiogram of the chest: no evidence of PE, extensive pulmonary infiltrate consistent with multifocal pneumonia. ASSESSMENT: 1. Acute respiratory failure secondary to COVID-19 pneumonia. Patient is out of the therapeutic window for remdesivir. Patient to continue dexamethasone, Lovenox, zinc and ascorbic acid. 2. Positive urine culture with Gram-negative possible urinary tract infection, covered with Rocephin. Monitor clinical course closely. MMODL / IJN: [id number] /
--- NOTE | 2021-06-05 23:44 | P.PN ---
Subjective Progress Note Date: 06/05/21 06/05/2021 Patient evaluated today resting in bed. She states overall she is feeling better. Her oxygen saturation today was about 88% on 6L HF cannula, lungs do sound coarse but with increased aeration. She is using her spirometer. Chest CTA was negative for PE, Doppler negative for bilateral DVT. Urine culture positive for gram negative bacilli, she however does not have any complaints of dysuria, urgency, or frequency. She was started on rocephin empirically. Labs today show WBC of 10.71, sodium 135, glucose 140s, AST 140, ALT 134. She is being followed by ID and pulmonary services. Blood pressure today 175/70, heart rate 90, afebrile. ROS Constitutional: Denied any fatigue denied any fever. Cardio vascular: denied any chest pain, palpitations Gastrointestinal denied any nausea vomiting Pulmonary: Reports SOB, cough Neurologic denied any new focal deficits All inpatient medications were reviewed and appropriate changes in these medications as dictated in the interval history and assessment and plan. PHYSICAL EXAMINATION: GENERAL: The patient is alert and oriented x3, not in any acute distress. Well developed, well nourished. HEENT: Pupils are round and equally reacting to light. EOMI. No scleral icterus. No conjunctival pallor. Normocephalic, atraumatic. No pharyngeal erythema. No thyromegaly. CARDIOVASCULAR: S1 and S2 present. No murmurs, rubs, or gallops. PULMONARY: ABDOMEN: Soft, nontender, nondistended, normoactive bowel sounds. No palpable organomegaly. MUSCULOSKELETAL: No joint swelling or deformity. EXTREMITIES: No cyanosis, clubbing, or pedal edema. NEUROLOGICAL: Gross neurological examination did not reveal any focal deficits. SKIN: No rashes. Assessment and plan Assessment Acute hypoxic respiratory failures secondary to COVID 19 requiring 6L HF nasal cannula Acute COVID 19 pneumonia UTI present on admission, positive urine culture Leukocytosis secondary to above Elevated procalcitonin Hypertension Elevated inflammatory markers of COVID-19 Elevated DD no evidence of pulmonary embolism Hyperglycemia Obesity History of cholecystectomy GI Prophylaxis DVT Prophylaxis: Lovenox Plan Finalized cultures pending Titrate oxygen as needed Continue IV antibiotics Continue decadron, lovenox, vitamins Added novolog for glycemic control Added lisinopril Continue all other supportive care Encourage IS, ambulation Prognosis guarded Objective - Vital Signs Vital signs: Vital Signs Temp 97.8 F 06/05/21 07:45 Pulse 83 06/05/21 07:45 Resp 20 06/05/21 07:45 BP 157/85 06/05/21 07:45 Pulse Ox 87 L 06/05/21 07:45 Intake & Output 06/04/21 06/05/21 06/05/21 18:59 06:59 18:59 Intake Total 20 100 360 Output Total 100 1 Balance -80 100 359 Weight 113.398 kg Intake: Oral 20 100 360 Output: Urine 100 Urine/Stool Mix 1 Other: Voiding Method Bedside Commode # Voids 1 2 1 - Labs CBC & Chem 7: 06/05/21 05:38 06/05/21 05:38 Labs: Abnormal Lab Results - Last 24 Hours (Table) 06/05/21 06/05/21 Range/Units 05:38 05:38 WBC 10.71 H (4.50-10.00) X 10*3/uL RBC 4.02 L (4.10-5.20) X 10*6/uL MCHC 31.7 L (32.0-37.0) g/dL Metamyelocytes % 3 H (0-0) % Neutrophils # (Manual) 9.85 H (2.00-8.90) X 10*3/uL Lymphocytes # (Manual) 0.32 L (0.90-5.00) X 10*3/uL Eosinophils # (Manual) 0 L (0.04-0.35) X 10*3/uL Creatinine 0.5 L (0.6-1.5) mg/dL BUN/Creatinine Ratio 25.58 H (12.00-20.00) Ratio Glucose 149 H (70-110) mg/dL Calcium 8.2 L (8.7-10.3) mg/dL Microbiology - Last 24 Hours (Table) 06/04/21 12:18 Urine Culture - Preliminary Urine,Clean Catch Gram Neg Bacilli 06/03/21 20:45 Blood Culture - Preliminary Blood No Growth after 24 hours 06/03/21 20:30 Blood Culture - Preliminary Blood No Growth after 24 hours
[2021-06-06] MEDS: SODIUM CHLORIDE 0.9% 1,000 ML IV SCH ×2 (05:02→09:40)
[2021-06-06 08:11] LABS: Glucose,Whole Blood 107 mg/dL (75-99)
[2021-06-06] MEDS: ALBUTEROL HFA INHALER INHALATION PRN ×4 (08:41→21:24)
[2021-06-06] MEDS: INSULIN ASPART (NovoLOG) 100 UNIT/ML VIAL SQ SCH ×4 (09:08→21:46)
[2021-06-06] MEDS: ENOXAPARIN 40 MG/0.4 ML SYRINGE SQ SCH ×2 (09:22→20:44)
[2021-06-06] MEDS: lisinopriL 5 MG TAB PO SCH (09:23)
[2021-06-06] MEDS: ZINC SULFATE 220 MG CAP PO SCH (09:23)
[2021-06-06] MEDS: CYANOCOBALAMIN 500 MCG TAB PO SCH (09:23)
[2021-06-06] MEDS: ASCORBIC ACID 500 MG TAB PO SCH ×2 (09:23→20:44)
[2021-06-06] MEDS: MULTIVITAMINS, THERA 1 EACH TAB PO SCH (09:23)
[2021-06-06] MEDS: CHOLECALCIFEROL 25 MCG (1000 IU) TABLET PO SCH (09:23)
[2021-06-06] MEDS: dexAMETHasone 2 MG TAB PO SCH (09:37)
[2021-06-06 09:43] LABS: Basophils # (A) 0.1 k/uL (0-0.2); Basophils % (A) 1 %; Eosinophils % (A) 0 %; HCT 42.5 % (34.0-46.0); HGB 13.5 gm/dL (11.4-16.0); Lymphocytes # (A) 1.4 k/uL (1.0-4.8); Lymphocytes % (A) 8 %; MCH 29.6 pg (25.0-35.0); MCHC 31.8 g/dL (31.0-37.0); MCV 93.3 fL (80.0-100.0); Mean Platelet Volume 8.1; Monocytes # (A) 1.2 k/uL (0-1.0); Monocytes % (A) 7 %; Neutrophils # (A) 14.9 k/uL (1.3-7.7); Neutrophils % (A) 83 %; Platelet Count 532 k/uL (150-450); RBC 4.56 m/uL (3.80-5.40); RDW 13.3 % (11.5-15.5)
[2021-06-06 09:49] LABS: ALT 182 U/L (4-34); AST 128 U/L (14-36); African American GFR (CKD) >90 (>60 ml/min/1.73 sqM); Albumin 3.3 g/dL (3.5-5.0); Albumin/Globulin Ratio 0.9; Alkaline Phosphatase 109 U/L (38-126); Anion Gap 8 mmol/L; Blood Urea Nitrogen 15 mg/dL (7-17); Calcium 8.5 mg/dL (8.4-10.2); Carbon Dioxide 28 mmol/L (22-30); Chloride 101 mmol/L (98-107); Globulin 3.6 g/dL; Glucose 121 mg/dL (74-99); Non-African American GFR(CKD) >90 (>60 ml/min/1.73 sqM); Potassium 4.2 mmol/L (3.5-5.1); Sodium 137 mmol/L (137-145); Total Bilirubin 0.6 mg/dL (0.2-1.3); Total Protein 6.9 g/dL (6.3-8.2)
--- NOTE | 2021-06-06 11:16 | P.PN ---
Subjective Progress Note Date: 06/06/21 Principal diagnosis: CoVID 19 pneumonia The patient is seen today 06/06/2021 in follow-up on the regular medical floor. She is currently sitting up in bed. Awake and alert in no acute distress. Her oxygen requirements however continued to climb. She is now on 10 L high flow nasal cannula to maintain O2 saturation in the high 80s low 90s. She is morbidly obese. She has been treated for COVID-19 pneumonia. She was outside the window for Remdesivir. She is not vaccinated. Her CAT scan yesterday ruled out pulmonary embolism. There is however extensive bilateral opacities consistent with COVID-19 pneumonia. She also was treated for an E. coli UTI and remains on IV Rocephin. She is not a candidate for Baricitinib. White count 18.0. Hemoglobin 13.5. Lymphocytes 0.32. D-dimer 1.08. Sodium 137. Potassium 4.2. Creatinine 0.52. AST 128. ALT 182. LDH 581. She remains on Lovenox, Decadron, vitamin supplements. 0.9 normal saline at 50 MLS per hour. Objective - Vital Signs Vital signs: Vital Signs Temp 97.8 F 06/06/21 07:45 Pulse 94 06/06/21 07:45 Resp 18 06/06/21 08:00 BP 168/95 06/06/21 07:45 Pulse Ox 85 L 06/06/21 07:45 Intake & Output 06/05/21 06/06/21 06/06/21 18:59 06:59 18:59 Intake Total 480 500 180 Output Total 1 Balance 479 500 180 Intake: Oral 480 500 180 Output: Urine/Stool Mix 1 Other: Voiding Method Bedside Commode Bedside Commode # Voids 1 1 # Bowel Movements 1 1 - Exam GENERAL EXAM: Alert, pleasant 65-year-old morbidly obese female patient, on 10 L high flow nasal cannula, comfortable in no apparent distress. HEAD: Normocephalic. EYES: Normal reaction of pupils, equal size. NOSE: Clear with pink turbinates. THROAT: No erythema or exudates. NECK: No masses, no JVD. CHEST: No chest wall deformity. LUNGS: Equal air entry with coarse crackles in the bilateral bases. CVS: S1 and S2 normal with no audible murmur, regular rhythm. ABDOMEN: No hepatosplenomegaly, normal bowel sounds, no guarding or rigidity. SPINE: No scoliosis or deformity SKIN: No rashes CENTRAL NERVOUS SYSTEM: No focal deficits, tone is normal in all 4 extremities. EXTREMITIES: There is no peripheral edema. No clubbing, no cyanosis. Peripheral pulses are intact. - Labs CBC & Chem 7: 06/06/21 06:14 06/06/21 06:14 Labs: Abnormal Lab Results - Last 24 Hours (Table) 06/06/21 06/06/21 06/06/21 Range/Units 06:14 06:14 06:14 WBC 18.0 H (3.8-10.6) k/uL Plt Count 532 H (150-450) k/uL Neutrophils # 14.9 H (1.3-7.7) k/uL Monocytes # 1.2 H (0-1.0) k/uL D-Dimer 1.08 H (<0.60) mg/L FEU Glucose (74-99) mg/dL POC Glucose (mg/dL) (75-99) mg/dL AST (14-36) U/L ALT (4-34) U/L Lactate Dehydrogenase 581 H (120-246) U/L Albumin (3.5-5.0) g/dL 06/06/21 06/06/21 Range/Units 06:14 08:10 WBC (3.8-10.6) k/uL Plt Count (150-450) k/uL Neutrophils # (1.3-7.7) k/uL Monocytes # (0-1.0) k/uL D-Dimer (<0.60) mg/L FEU Glucose 121 H (74-99) mg/dL POC Glucose (mg/dL) 107 H (75-99) mg/dL AST 128 H (14-36) U/L ALT 182 H (4-34) U/L Lactate Dehydrogenase (120-246) U/L Albumin 3.3 L (3.5-5.0) g/dL Microbiology - Last 24 Hours (Table) 06/04/21 12:18 Urine Culture - Final Urine,Clean Catch Escherichia coli 06/03/21 20:45 Blood Culture - Preliminary Blood No Growth after 48 hours 06/03/21 20:30 Blood Culture - Preliminary Blood No Growth after 48 hours Assessment and Plan Assessment: 1 Acute hypoxemic respiratory failure secondary to COVID-19 pneumonia. Outside the window for Remdesivir. Not vaccinated. Now with a E. coli UTI. Not qualifying for Baricitinib. Currently on 10 L high flow nasal cannula. Computed tomography scan of the chest ruled out pulmonary embolism. There is extensive bilateral patchy densities consistent with CoVID pneumonia. 2 Morbid obesity 3 urinary tract infection secondary to E. coli, currently on IV Rocephin For Mild transaminitis secondary to COVID-19 infection Plan: She was seen and evaluated Continued on Decadron, Lovenox, vitamin supplements Encouraged to increase use the incentive spirometer Computed tomography scan reveals extensive bilateral pneumonia Oxygen requirements have increased currently on 10 L high flow nasal cannula Titrate the FiO2 as tolerated Increase her activity as tolerated Condition is guarded We will continue to follow and make further recommendations based on her clinical status I, the cosigning physician, performed a history & physical examination of the patient. Lungs sounds with coarse crackles in the bilateral bases. Maintaining good O2 saturations in the 90s on 10 L high flow nasal cannula. I discussed the assessment and plan of care with my nurse practitioner, Ivone Lopez. I attest to the above note as dictated by her.
[2021-06-06 11:21] LABS: C Reactive Protein 2.5 mg/dL (0.00-0.80)
[2021-06-06 11:46] LABS: Glucose,Whole Blood 136 mg/dL (75-99)
--- NOTE | 2021-06-06 14:50 | XR ---
EXAMINATION TYPE: XR chest 1V portable DATE OF EXAM: 06/06/2021 COMPARISON: Chest x-ray 06/03/2021 HISTORY: Hypoxia, abnormal chest x-ray TECHNIQUE: Single frontal view of the chest is obtained. FINDINGS: Findings are similar to prior exam, there is extensive bilateral airspace disease. No evid ent pneumothorax or pleural effusion. Heart is stable. There are overlying artifacts. IMPRESSION: Correlate for pneumonia, edema
--- NOTE | 2021-06-06 15:54 | P.PN ---
Subjective Progress Note Date: 06/06/21 06/05/2021 Patient evaluated today resting in bed. She states overall she is feeling better. Her oxygen saturation today was about 88% on 6L HF cannula, lungs do sound coarse but with increased aeration. She is using her spirometer. Chest CTA was negative for PE, Doppler negative for bilateral DVT. Urine culture positive for gram negative bacilli, she however does not have any complaints of dysuria, urgency, or frequency. She was started on rocephin empirically. Labs today show WBC of 10.71, sodium 135, glucose 140s, AST 140, ALT 134. She is being followed by ID and pulmonary services. Blood pressure today 175/70, heart rate 90, afebrile. 06/06/2021 Patient is noticing the bed. Unfortunately throughout the night she is now requiring 15L HF NC as she desatted on 6L HF. She denies any increasing or new shortness of breath, reports cough. She is using her spirometer. Labs today show a white count of 18, d-dimer 1.08, sodium 137, potassium 4.2, blood glucose in the 120s, AST 128, ALT 182, LDH 581, CRP 2.50. Urine culture is finalized as E. coli, on antibiotics. Repeat chest x-ray today shows correlate for pneumonia, edema. She has been followed closely by ID and pulmonary services. She continues on Decadron, Lovenox, zinc, vitamins. ROS Constitutional: Denied any fatigue denied any fever. Cardio vascular: denied any chest pain, palpitations Gastrointestinal denied any nausea vomiting Pulmonary: Reports SOB, cough Neurologic denied any new focal deficits All inpatient medications were reviewed and appropriate changes in these medications as dictated in the interval history and assessment and plan. PHYSICAL EXAMINATION: GENERAL: The patient is alert and oriented x3, not in any acute distress. Well developed, well nourished. HEENT: Pupils are round and equally reacting to light. EOMI. No scleral icterus. No conjunctival pallor. Normocephalic, atraumatic. No pharyngeal erythema. No thyromegaly. CARDIOVASCULAR: S1 and S2 present. No murmurs, rubs, or gallops. PULMONARY: ABDOMEN: Soft, nontender, nondistended, normoactive bowel sounds. No palpable organomegaly. MUSCULOSKELETAL: No joint swelling or deformity. EXTREMITIES: No cyanosis, clubbing, or pedal edema. NEUROLOGICAL: Gross neurological examination did not reveal any focal deficits. SKIN: No rashes. Assessment and plan Assessment Acute hypoxic respiratory failures secondary to COVID 19 requiring 15L HF nasal cannula Acute COVID 19 pneumonia UTI with E. Coli present on admission Leukocytosis secondary to above Elevated procalcitonin Hypertension Elevated inflammatory markers of COVID-19 Elevated DD no evidence of pulmonary embolism Hyperglycemia Obesity History of cholecystectomy GI Prophylaxis: Pepcid DVT Prophylaxis: Lovenox Plan Check BNP Titrate oxygen as needed Continue IV antibiotics Continue decadron, lovenox, vitamins Continue novolog Continue all other supportive care Encourage IS, ambulation Prognosis guarded Objective - Vital Signs Vital signs: Vital Signs Temp 97.9 F 06/06/21 02:00 Pulse 88 06/06/21 02:00 Resp 16 06/06/21 02:00 BP 149/90 06/06/21 02:00 Pulse Ox 92 L 06/06/21 02:00 Intake & Output 06/05/21 06/06/21 06/06/21 18:59 06:59 18:59 Intake Total 480 500 Output Total 1 Balance 479 500 Intake: Oral 480 500 Output: Urine/Stool Mix 1 Other: Voiding Method Bedside Commode # Voids 1 1 # Bowel Movements 1 1 - Labs CBC & Chem 7: 06/06/21 06:14 06/06/21 06:14 Labs: Abnormal Lab Results - Last 24 Hours (Table) 06/05/21 06/05/21 06/06/21 Range/Units 05:38 05:38 06:14 Metamyelocytes % 3 H (0-0) % Neutrophils # (Manual) 9.85 H (2.00-8.90) X 10*3/uL Lymphocytes # (Manual) 0.32 L (0.90-5.00) X 10*3/uL Eosinophils # (Manual) 0 L (0.04-0.35) X 10*3/uL D-Dimer 1.08 H (<0.60) mg/L FEU Creatinine 0.5 L (0.6-1.5) mg/dL BUN/Creatinine Ratio 25.58 H (12.00-20.00) Ratio Glucose 149 H (70-110) mg/dL POC Glucose (mg/dL) (75-99) mg/dL Calcium 8.2 L (8.7-10.3) mg/dL 06/06/21 Range/Units 08:10 Metamyelocytes % (0-0) % Neutrophils # (Manual) (2.00-8.90) X 10*3/uL Lymphocytes # (Manual) (0.90-5.00) X 10*3/uL Eosinophils # (Manual) (0.04-0.35) X 10*3/uL D-Dimer (<0.60) mg/L FEU Creatinine (0.6-1.5) mg/dL BUN/Creatinine Ratio (12.00-20.00) Ratio Glucose (70-110) mg/dL POC Glucose (mg/dL) 107 H (75-99) mg/dL Calcium (8.7-10.3) mg/dL Microbiology - Last 24 Hours (Table) 06/03/21 20:45 Blood Culture - Preliminary Blood No Growth after 48 hours 06/03/21 20:30 Blood Culture - Preliminary Blood No Growth after 48 hours 06/04/21 12:18 Urine Culture - Preliminary Urine,Clean Catch Gram Neg Bacilli
[2021-06-06 17:25] LABS: Glucose,Whole Blood 171 mg/dL (75-99)
[2021-06-06] MEDS: FAMOTIDINE 20 MG TAB PO SCH (20:44)
[2021-06-06 21:08] LABS: Glucose,Whole Blood 180 mg/dL (75-99)
--- NOTE | 2021-06-06 22:59 | PN ---
PROGRESS NOTE DATE OF SERVICE: 06/06/2021 REASON FOR FOLLOWUP: COVID-19 pneumonia. INTERVAL HISTORY: The patient is afebrile. The patient did have slight worsening of her respiratory status, requiring more supplemental oxygen. The patient denies having any chest pain. No worsening cough or sputum production. No vomiting. No abdominal pain or diarrhea. PHYSICAL EXAMINATION: Blood pressure 148/85, pulse of 106, temperature 97.6. She is 90% on 15 L high-flow oxygen. General description is a middle-aged female lying in bed in no distress. Respiratory system: Unlabored breathing. Coarse breath sounds bilaterally. No wheeze. Heart S1, S2. Regular rate and rhythm. Abdomen soft, no tenderness. LABS: Hemoglobin is 13.5, white count of 18, creatinine 0.52. DIAGNOSTIC IMPRESSION AND PLAN: Patient with acute COVID-19 pneumonia with acute respiratory failure with slight worsening of her respiratory status. The patient is currently on dexamethasone, Lovenox, zinc and ascorbic acid. May benefit from baricitinib if any further worsening of her respiratory status and oxygenation. Continue supportive care. MMODL / IJN: [id number] /
[2021-06-07 07:32] LABS: Glucose,Whole Blood 120 mg/dL (75-99)
[2021-06-07] MEDS: INSULIN ASPART (NovoLOG) 100 UNIT/ML VIAL SQ SCH ×4 (07:56→22:08)
[2021-06-07] MEDS: ENOXAPARIN 40 MG/0.4 ML SYRINGE SQ SCH ×2 (08:06→22:08)
[2021-06-07] MEDS: ZINC SULFATE 220 MG CAP PO SCH (08:07)
[2021-06-07] MEDS: CYANOCOBALAMIN 500 MCG TAB PO SCH (08:07)
[2021-06-07] MEDS: lisinopriL 5 MG TAB PO SCH (08:07)
[2021-06-07] MEDS: FAMOTIDINE 20 MG TAB PO SCH ×2 (08:07→22:08)
[2021-06-07] MEDS: ASCORBIC ACID 500 MG TAB PO SCH ×2 (08:07→22:08)
[2021-06-07] MEDS: CHOLECALCIFEROL 25 MCG (1000 IU) TABLET PO SCH (08:07)
[2021-06-07] MEDS: dexAMETHasone 2 MG TAB PO SCH (08:07)
[2021-06-07] MEDS: MULTIVITAMINS, THERA 1 EACH TAB PO SCH (08:07)
[2021-06-07] MEDS: ALBUTEROL HFA INHALER INHALATION PRN ×5 (08:39→20:56)
--- NOTE | 2021-06-07 09:19 | P.PN ---
Subjective Progress Note Date: 06/07/21 06/05/2021 Patient evaluated today resting in bed. She states overall she is feeling better. Her oxygen saturation today was about 88% on 6L HF cannula, lungs do sound coarse but with increased aeration. She is using her spirometer. Chest CTA was negative for PE, Doppler negative for bilateral DVT. Urine culture positive for gram negative bacilli, she however does not have any complaints of dysuria, urgency, or frequency. She was started on rocephin empirically. Labs today show WBC of 10.71, sodium 135, glucose 140s, AST 140, ALT 134. She is being followed by ID and pulmonary services. Blood pressure today 175/70, heart rate 90, afebrile. 06/06/2021 Patient is noticing the bed. Unfortunately throughout the night she is now requiring 15L HF NC as she desatted on 6L HF. She denies any increasing or new shortness of breath, reports cough. She is using her spirometer. Labs today show a white count of 18, d-dimer 1.08, sodium 137, potassium 4.2, blood glucose in the 120s, AST 128, ALT 182, LDH 581, CRP 2.50. Urine culture is finalized as E. coli, on antibiotics. Repeat chest x-ray today shows correlate for pneumonia, edema. She has been followed closely by ID and pulmonary services. She continues on Decadron, Lovenox, zinc, vitamins. 06/07/2021 Patient evaluated today sitting up at the bedside. Her lungs are mostly clear, she does have a nonproductive cough complains of a sore throat which is dry. She is requiring 15 L high flow nasal cannula oxygen saturation is between 88- 91%. Blood pressure today is 145/82, heart rate 95-116 tachycardic, afebrile. Patient was hoping to be home for [place] however prognosis remains guarded as her oxygen needs continue to progress. Medical sensitivities are finalized, E. coli UTI which is susceptible to Rocephin. She continues on zinc, vitamins, Lovenox, Decadron. Labs are pending from today. ProBNP repeat 587, fluids were decreased to KVO yesterday as she has adequate oral intake so far. She is moving her bowels, urinating without difficulty. Remains short of breath at rest, and seems winded when carrying on a conversation. She does have incentive spirometer at the bedside which she is using. Patient is being followed closely by pulmonary and infectious disease services. ROS Constitutional: Denied any fever, reports fatigue Cardio vascular: denied any chest pain, palpitations Gastrointestinal denied any nausea vomiting Pulmonary: Reports SOB, cough Neurologic denied any new focal deficits All inpatient medications were reviewed and appropriate changes in these medications as dictated in the interval history and assessment and plan. PHYSICAL EXAMINATION: GENERAL: The patient is alert and oriented x3, appears mildly distressed when talking and with exertion, Well developed, well nourished. Obese. HEENT: Pupils are round and equally reacting to light. EOMI. No scleral icterus. No conjunctival pallor. Normocephalic, atraumatic. No pharyngeal erythema. No thyromegaly. CARDIOVASCULAR: S1 and S2 present. No murmurs, rubs, or gallops. tachycardic. PULMONARY: Lungs are clear to ausculation but diminished all lung godwin. ABDOMEN: Soft, nontender, nondistended, normoactive bowel sounds. No palpable organomegaly. MUSCULOSKELETAL: No joint swelling or deformity. EXTREMITIES: No cyanosis, clubbing, or pedal edema. NEUROLOGICAL: Gross neurological examination did not reveal any focal deficits. SKIN: No rashes. Assessment and plan Assessment Acute hypoxic respiratory failures secondary to COVID 19 requiring 15L HF nasal cannula Acute COVID 19 pneumonia UTI with E. Coli present on admission Leukocytosis secondary to above Elevated procalcitonin Hypertension Elevated inflammatory markers of COVID-19 Elevated DD no evidence of pulmonary embolism Hyperglycemia Obesity History of cholecystectomy GI Prophylaxis: Pepcid DVT Prophylaxis: Lovenox Plan Titrate oxygen as needed Continue IV antibiotics Continue decadron, lovenox, vitamins Continue novolog Continue all other supportive care Encourage IS, ambulation Prognosis guarded Objective - Vital Signs Vital signs: Vital Signs Temp 98.1 F 06/07/21 07:56 Pulse 95 06/07/21 07:56 Resp 18 06/07/21 07:56 BP 145/82 06/07/21 07:56 Pulse Ox 91 L 06/07/21 07:56 Intake & Output 06/06/21 06/07/21 06/07/21 18:59 06:59 18:59 Intake Total 360 Output Total 1 Balance 360 -1 Intake: Oral 360 Output: Urine 1 Other: Voiding Method Bedside Commode Bedside Commode # Voids 2 3 # Bowel Movements 1 1 - Labs CBC & Chem 7: 06/06/21 06:14 06/06/21 06:14 Labs: Abnormal Lab Results - Last 24 Hours (Table) 06/06/21 06/06/21 06/06/21 Range/Units 06:14 06:14 06:14 WBC 18.0 H (3.8-10.6) k/uL Plt Count 532 H (150-450) k/uL Neutrophils # 14.9 H (1.3-7.7) k/uL Monocytes # 1.2 H (0-1.0) k/uL Glucose 121 H (74-99) mg/dL POC Glucose (mg/dL) (75-99) mg/dL AST 128 H (14-36) U/L ALT 182 H (4-34) U/L Lactate Dehydrogenase 581 H (120-246) U/L C-Reactive Protein 2.50 H (0.00-0.80) mg/dL Albumin 3.3 L (3.5-5.0) g/dL 06/06/21 06/06/21 06/06/21 Range/Units 11:44 17:24 21:07 WBC (3.8-10.6) k/uL Plt Count (150-450) k/uL Neutrophils # (1.3-7.7) k/uL Monocytes # (0-1.0) k/uL Glucose (74-99) mg/dL POC Glucose (mg/dL) 136 H 171 H 180 H (75-99) mg/dL AST (14-36) U/L ALT (4-34) U/L Lactate Dehydrogenase (120-246) U/L C-Reactive Protein (0.00-0.80) mg/dL Albumin (3.5-5.0) g/dL 06/07/21 Range/Units 07:31 WBC (3.8-10.6) k/uL Plt Count (150-450) k/uL Neutrophils # (1.3-7.7) k/uL Monocytes # (0-1.0) k/uL Glucose (74-99) mg/dL POC Glucose (mg/dL) 120 H (75-99) mg/dL AST (14-36) U/L ALT (4-34) U/L Lactate Dehydrogenase (120-246) U/L C-Reactive Protein (0.00-0.80) mg/dL Albumin (3.5-5.0) g/dL Microbiology - Last 24 Hours (Table) 06/03/21 20:45 Blood Culture - Preliminary Blood No Growth after 72 hours 06/03/21 20:30 Blood Culture - Preliminary Blood No Growth after 72 hours 06/04/21 12:18 Urine Culture - Final Urine,Clean Catch Escherichia coli
[2021-06-07 09:28] LABS: HCT 38.7 % (37.2-46.3); MCH 29.1 pg (27.0-32.0); MCV 93.9 fL (80.0-97.0); Mean Platelet Volume 9.3 fL (9.5-12.2); Platelet Count 448 X 10*3/uL (140-440); RBC 4.12 X 10*6/uL (4.10-5.20); RDW 13.8 % (11.5-14.5); WBC 15.77 X 10*3/uL (4.50-10.00)
[2021-06-07 09:53] LABS: African American GFR (CKD) 119.4 (60.0-200.0); Albumin/Globulin Ratio 1.03 (1.60-3.17); Anion Gap 13.5 mmol/L (10.00-18.00); BUN/Creat Ratio 24.6 Ratio (12.00-20.00); Blood Urea Nitrogen 12.3 mg/dL (9.0-27.0); Calcium 8.3 mg/dL (8.7-10.3); Carbon Dioxide 23.5 mmol/L (20.0-27.5); Globulin 2.9 g/dL (1.6-3.3); Potassium 4.3 mmol/L (3.5-5.5); Total Bilirubin 0.4 mg/dL (0.30-1.20); Total Protein 5.9 g/dL (6.2-8.2)
[2021-06-07 11:14] LABS: Basophils # (M) 0 X 10*3/uL (0.00-0.10); Eosinophils # (M) 0 X 10*3/uL (0.04-0.35); Lymphocytes # (M) 0.95 X 10*3/uL (0.90-5.00); Metamyelocytes % 2 % (0-0); Monocytes # (M) 1.26 X 10*3/uL (0.20-1.00); Myelocytes % 1 % (0-0); Neutrophils # (M) 13.09 X 10*3/uL (2.00-8.90); Neutrophils % (M) 83 %
[2021-06-07 12:28] LABS: Glucose,Whole Blood 134 mg/dL (75-99)
--- NOTE | 2021-06-07 13:16 | P.PN ---
Subjective Progress Note Date: 06/07/21 Principal diagnosis: CoVID 19 pneumonia The patient is seen today 06/06/2021 in follow-up on the regular medical floor. She is currently sitting up in bed. Awake and alert in no acute distress. Her oxygen requirements however continued to climb. She is now on 10 L high flow nasal cannula to maintain O2 saturation in the high 80s low 90s. She is morbidly obese. She has been treated for COVID-19 pneumonia. She was outside the window for Remdesivir. She is not vaccinated. Her CAT scan yesterday ruled out pulmonary embolism. There is however extensive bilateral opacities consistent with COVID-19 pneumonia. She also was treated for an E. coli UTI and remains on IV Rocephin. She is not a candidate for Baricitinib. White count 18.0. Hemoglobin 13.5. Lymphocytes 0.32. D-dimer 1.08. Sodium 137. Potassium 4.2. Creatinine 0.52. AST 128. ALT 182. LDH 581. She remains on Lovenox, Decadron, vitamin supplements. 0.9 normal saline at 50 MLS per hour. The patient is seen today 06/07/2021 in follow-up on the regular medical floor. She is awake and alert in no acute distress. She is dyspneic with conversation. Dyspneic with minimal exertion. She is requiring 15 L high flow nasal cannula to maintain O2 saturations in the low 90s. She is afebrile. Hemodynamically stable. Blood cultures revealed no growth. Urine culture positive for E. coli. White count 15.7. Hemoglobin 12.0. Leukocytes 0.95. Sodium 136. Potassium 4.3. Creatinine 0.5. Glucose 1:15. AST 108. ALT 230. She is continued on ceftriaxone. She is continued on Lovenox, Decadron, vitamin supplements. She was outside the window for Remdesivir. UTI rules out Baricitinib. Objective - Vital Signs Vital signs: Vital Signs Temp 98.1 F 06/07/21 07:56 Pulse 95 06/07/21 07:56 Resp 18 06/07/21 07:56 BP 145/82 06/07/21 07:56 Pulse Ox 91 L 06/07/21 07:56 Intake & Output 06/06/21 06/07/21 06/07/21 18:59 06:59 18:59 Intake Total 360 180 Output Total 1 Balance 360 179 Intake: Oral 360 180 Output: Urine 1 Other: Voiding Method Bedside Commode Bedside Commode Bedside Commode # Voids 2 3 # Bowel Movements 1 1 - Exam GENERAL EXAM: Alert, pleasant 65-year-old morbidly obese female patient, on 15 L high flow nasal cannula, comfortable in no apparent distress. HEAD: Normocephalic. EYES: Normal reaction of pupils, equal size. NOSE: Clear with pink turbinates. THROAT: No erythema or exudates. NECK: No masses, no JVD. CHEST: No chest wall deformity. LUNGS: Equal air entry with coarse crackles in the bilateral bases. CVS: S1 and S2 normal with no audible murmur, regular rhythm. ABDOMEN: No hepatosplenomegaly, normal bowel sounds, no guarding or rigidity. SPINE: No scoliosis or deformity SKIN: No rashes CENTRAL NERVOUS SYSTEM: No focal deficits, tone is normal in all 4 extremities. EXTREMITIES: There is no peripheral edema. No clubbing, no cyanosis. Peripheral pulses are intact. - Labs CBC & Chem 7: 06/07/21 03:57 06/07/21 03:57 Labs: Abnormal Lab Results - Last 24 Hours (Table) 06/06/21 06/06/21 06/07/21 Range/Units 17:24 21:07 03:57 WBC 15.77 H (4.50-10.00) X 10*3/uL MCHC 31.0 L (32.0-37.0) g/dL Plt Count 448 H (140-440) X 10*3/uL Plt Count Comment INCREASED A MPV 9.3 L (9.5-12.2) fL Absolute Nucleated RBC 0.02 H (0.00-0.00) X 10*3/uL Metamyelocytes % 2 H (0-0) % Myelocytes % 1 H (0-0) % Neutrophils # (Manual) 13.09 H (2.00-8.90) X 10*3/uL Monocytes # (Manual) 1.26 H (0.20-1.00) X 10*3/uL Eosinophils # (Manual) 0 L (0.04-0.35) X 10*3/uL NRBC/100 WBC Diff 0.1 H (0.0-0.0) /100 WBCS Creatinine (0.6-1.5) mg/dL BUN/Creatinine Ratio (12.00-20.00) Ratio Glucose (70-110) mg/dL POC Glucose (mg/dL) 171 H 180 H (75-99) mg/dL Calcium (8.7-10.3) mg/dL AST (13-35) U/L ALT (8-44) U/L Total Protein (6.2-8.2) g/dL Albumin (3.8-4.9) g/dL Albumin/Globulin Ratio (1.60-3.17) g/dL 06/07/21 06/07/21 06/07/21 Range/Units 03:57 07:31 12:26 WBC (4.50-10.00) X 10*3/uL MCHC (32.0-37.0) g/dL Plt Count (140-440) X 10*3/uL Plt Count Comment MPV (9.5-12.2) fL Absolute Nucleated RBC (0.00-0.00) X 10*3/uL Metamyelocytes % (0-0) % Myelocytes % (0-0) % Neutrophils # (Manual) (2.00-8.90) X 10*3/uL Monocytes # (Manual) (0.20-1.00) X 10*3/uL Eosinophils # (Manual) (0.04-0.35) X 10*3/uL NRBC/100 WBC Diff (0.0-0.0) /100 WBCS Creatinine 0.5 L (0.6-1.5) mg/dL BUN/Creatinine Ratio 24.60 H (12.00-20.00) Ratio Glucose 115 H (70-110) mg/dL POC Glucose (mg/dL) 120 H 134 H (75-99) mg/dL Calcium 8.3 L (8.7-10.3) mg/dL AST 108 H (13-35) U/L ALT 230 H (8-44) U/L Total Protein 5.9 L (6.2-8.2) g/dL Albumin 3.0 L (3.8-4.9) g/dL Albumin/Globulin Ratio 1.03 L (1.60-3.17) g/dL Microbiology - Last 24 Hours (Table) 06/03/21 20:45 Blood Culture - Preliminary Blood No Growth after 72 hours 06/03/21 20:30 Blood Culture - Preliminary Blood No Growth after 72 hours 06/04/21 12:18 Urine Culture - Final Urine,Clean Catch Escherichia coli Assessment and Plan Assessment: 1 Acute hypoxemic respiratory failure secondary to COVID-19 pneumonia. Outside the window for Remdesivir. Not vaccinated. Now with a E. coli UTI. Not qualifying for Baricitinib. Currently on 15 L high flow nasal cannula. Computed tomography scan of the chest ruled out pulmonary embolism. There is extensive bilateral patchy densities consistent with CoVID pneumonia. 2 Morbid obesity 3 urinary tract infection secondary to E. coli, currently on IV Rocephin For Mild transaminitis secondary to COVID-19 infection Plan: She was seen and evaluated Continued on Decadron, Lovenox, vitamin supplements Encouraged to increase the use of the incentive spirometer Oxygen requirements have increased currently on 15 L high flow nasal cannula May need to add a nonrebreather mask Titrate the FiO2 as tolerated Increase her activity as tolerated Condition is guarded We will continue to follow I, the cosigning physician, performed a history & physical examination of the patient. Lungs sounds with coarse crackles in the bilateral bases. Maintaining good O2 saturations in the 90s on 15 L high flow nasal cannula. I discussed the assessment and plan of care with my nurse practitioner, Ivone Lopez. I attest to the above note as dictated by her.
[2021-06-07 16:40] LABS: Glucose,Whole Blood 175 mg/dL (75-99)
[2021-06-07 20:19] LABS: Glucose,Whole Blood 138 mg/dL (75-99)
[2021-06-07] MEDS: SODIUM CHLORIDE 0.9% 1,000 ML IV SCH (22:09)
--- NOTE | 2021-06-07 23:15 | PN ---
PROGRESS NOTE DATE OF SERVICE: 06/07/2021 REASON FOR FOLLOWUP: 1. COVID-19 pneumonia. 2. Positive urine culture, likely asymptomatic bacteriuria or cystitis. INTERVAL HISTORY: The patient is afebrile. The patient is noted to have slight worsening of her respiratory status, requiring high-flow non-rebreather. Subsequently has been transferred to the telemetry floor. The patient denies having any chest pain. No worsening cough or sputum production. The patient denies any abdominal pain. The patient denies any burning or frequency of urine or suprapubic pain. PHYSICAL EXAMINATION: Blood pressure 107/62 with a pulse of 104, temperature 97.4. She is 90% on high-flow oxygen. General description is a middle-aged female lying in bed in no distress. Respiratory system: Unlabored breathing. Coarse breath sounds bilaterally. No wheeze. Heart S1, S2. Regular rate and rhythm. Abdomen soft, no tenderness. LABS: Hemoglobin is 12, white count 15.7. Creatinine 0.5. DIAGNOSTIC IMPRESSION AND PLAN: 1. Patient with acute COVID-19 pneumonia in this patient who did have worsening of her respiratory status. Patient dexamethasone, Lovenox, zinc and ascorbic acid and may be considered for baricitinib. Will discuss with Pulmonary. 2. Positive urine culture with Escherichia coli in this patient with no urinary symptoms, more likely asymptomatic bacteruria versus mild cystitis that has been adequately treated. She received 3 days of Rocephin. Rocephin will be discontinued. Patient will be monitored closely off antibiotic therapy. MMODL / IJN: [id number] /
[2021-06-08 06:08] LABS: Glucose,Whole Blood 147 mg/dL (75-99)
[2021-06-08] MEDS: INSULIN ASPART (NovoLOG) 100 UNIT/ML VIAL SQ SCH ×4 (06:47→22:06)
[2021-06-08] MEDS: CYANOCOBALAMIN 500 MCG TAB PO SCH (08:45)
[2021-06-08] MEDS: lisinopriL 5 MG TAB PO SCH (08:45)
[2021-06-08] MEDS: ASCORBIC ACID 500 MG TAB PO SCH ×2 (08:45→22:07)
[2021-06-08] MEDS: dexAMETHasone 2 MG TAB PO SCH (08:45)
[2021-06-08] MEDS: FAMOTIDINE 20 MG TAB PO SCH ×2 (08:45→22:07)
[2021-06-08] MEDS: ENOXAPARIN 40 MG/0.4 ML SYRINGE SQ SCH ×2 (08:46→22:07)
[2021-06-08] MEDS: CHOLECALCIFEROL 25 MCG (1000 IU) TABLET PO SCH (08:46)
[2021-06-08] MEDS: MULTIVITAMINS, THERA 1 EACH TAB PO SCH (09:16)
[2021-06-08] MEDS: ZINC SULFATE 220 MG CAP PO SCH (09:16)
[2021-06-08] MEDS: ALBUTEROL HFA INHALER INHALATION PRN ×2 (09:34→17:07)
[2021-06-08 11:38] LABS: Glucose,Whole Blood 158 mg/dL (75-99)
[2021-06-08 13:27] VITALS: BMI 42.9
--- NOTE | 2021-06-08 13:30 | P.PN ---
Subjective Progress Note Date: 06/08/21 Principal diagnosis: CoVID 19 pneumonia The patient is seen today 06/06/2021 in follow-up on the regular medical floor. She is currently sitting up in bed. Awake and alert in no acute distress. Her oxygen requirements however continued to climb. She is now on 10 L high flow nasal cannula to maintain O2 saturation in the high 80s low 90s. She is morbidly obese. She has been treated for COVID-19 pneumonia. She was outside the window for Remdesivir. She is not vaccinated. Her CAT scan yesterday ruled out pulmonary embolism. There is however extensive bilateral opacities consistent with COVID-19 pneumonia. She also was treated for an E. coli UTI and remains on IV Rocephin. She is not a candidate for Baricitinib. White count 18.0. Hemoglobin 13.5. Lymphocytes 0.32. D-dimer 1.08. Sodium 137. Potassium 4.2. Creatinine 0.52. AST 128. ALT 182. LDH 581. She remains on Lovenox, Decadron, vitamin supplements. 0.9 normal saline at 50 MLS per hour. The patient is seen today 06/07/2021 in follow-up on the regular medical floor. She is awake and alert in no acute distress. She is dyspneic with conversation. Dyspneic with minimal exertion. She is requiring 15 L high flow nasal cannula to maintain O2 saturations in the low 90s. She is afebrile. Hemodynamically stable. Blood cultures revealed no growth. Urine culture positive for E. coli. White count 15.7. Hemoglobin 12.0. Leukocytes 0.95. Sodium 136. Potassium 4.3. Creatinine 0.5. Glucose 1:15. AST 108. ALT 230. She is continued on ceftriaxone. She is continued on Lovenox, Decadron, vitamin supplements. She was outside the window for Remdesivir. UTI rules out Baricitinib. The patient is seen today 06/08/2021 in follow-up on the selective care unit. She is still requiring 15 L high flow nasal cannula plus a nonrebreather mask. She had been transferred here from the regular medical floor for closer observation. She is currently sitting up in a chair at the bedside. She states she is doing about the same compared to yesterday. O2 saturations in the low 90s. She's been afebrile. Hemodynamically stable. Urine culture is positive for E. coli. Sputum culture pending. Blood cultures reveal no growth to date. Blood glucose 158. She remains on Decadron, Lovenox, vitamin supplements. Objective - Vital Signs Vital signs: Vital Signs Temp 96.4 F L 06/08/21 12:40 Pulse 99 06/08/21 12:40 Resp 20 06/08/21 12:40 BP 143/67 06/08/21 12:40 Pulse Ox 94 L 06/08/21 12:40 Intake & Output 06/07/21 06/08/21 06/08/21 18:59 06:59 18:59 Intake Total 180 630 240 Output Total 1 650 Balance 179 -20 240 Intake: Oral 180 630 240 Output: Urine 1 650 Other: Voiding Method Bedside Commode # Voids 3 2 # Bowel Movements 2 - Exam GENERAL EXAM: Alert, pleasant 65-year-old morbidly obese female patient, on 15 L high flow nasal cannula +100% nonrebreather mask, in a chair, fairly comfortable in no apparent distress. HEAD: Normocephalic. EYES: Normal reaction of pupils, equal size. NOSE: Clear with pink turbinates. THROAT: No erythema or exudates. NECK: No masses, no JVD. CHEST: No chest wall deformity. LUNGS: Equal air entry with coarse crackles in the bilateral bases. CVS: S1 and S2 normal with no audible murmur, regular rhythm. ABDOMEN: No hepatosplenomegaly, normal bowel sounds, no guarding or rigidity. SPINE: No scoliosis or deformity SKIN: No rashes CENTRAL NERVOUS SYSTEM: No focal deficits, tone is normal in all 4 extremities. EXTREMITIES: There is no peripheral edema. No clubbing, no cyanosis. Peripheral pulses are intact. - Labs CBC & Chem 7: 06/07/21 03:57 06/07/21 03:57 Labs: Abnormal Lab Results - Last 24 Hours (Table) 06/07/21 06/07/21 06/08/21 Range/Units 16:38 20:17 06:06 POC Glucose (mg/dL) 175 H 138 H 147 H (75-99) mg/dL 06/08/21 Range/Units 11:36 POC Glucose (mg/dL) 158 H (75-99) mg/dL Microbiology - Last 24 Hours (Table) 06/07/21 17:18 Gram Stain - Preliminary Sputum Sputum Culture - Preliminary 06/03/21 20:45 Blood Culture - Preliminary Blood No Growth after 96 hours 06/03/21 20:30 Blood Culture - Preliminary Blood No Growth after 96 hours Assessment and Plan Assessment: 1 Acute hypoxemic respiratory failure secondary to COVID-19 pneumonia. Outside the window for Remdesivir. Not vaccinated. Now with a E. coli UTI. Not qualifying for Baricitinib. Currently on 15 L high flow nasal cannula +100% nonrebreather. Computed tomography scan of the chest ruled out pulmonary embolism. There is extensive bilateral patchy densities consistent with CoVID pneumonia. 2 Morbid obesity 3 urinary tract infection secondary to E. coli, currently on IV Rocephin 4 Mild transaminitis secondary to COVID-19 infection Plan: She was seen and evaluated Continued on Decadron, Lovenox, vitamin supplements Encouraged to increase the use of the incentive spirometer On 15 L high flow nasal cannula plus a nonrebreather mask Titrate the FiO2 as tolerated Increase her activity as tolerated Condition is guarded Follow-up chest x-ray, inflammatory markers in the a.m. We will continue to follow I, the cosigning physician, performed a history & physical examination of the patient. Lungs sounds with coarse crackles in the bilateral bases. Maintaining good O2 saturations in the 90s on 15 L high flow nasal cannula +100% nonrebreather mask. I discussed the assessment and plan of care with my nurse practitioner, Ivone Lopez. I attest to the above note as dictated by her.
[2021-06-08 14:49] LABS: T4, Free (Free Thyroxine) 1.37 ng/dL (0.800-1.800)
[2021-06-08 17:03] LABS: Glucose,Whole Blood 141 mg/dL (75-99)
[2021-06-08 21:06] LABS: Glucose,Whole Blood 132 mg/dL (75-99)
--- NOTE | 2021-06-08 22:55 | PN ---
PROGRESS NOTE DATE OF SERVICE: 06/08/2021 REASON FOR FOLLOWUP: COVID-19 pneumonia. INTERVAL HISTORY: The patient is afebrile. The patient denies having any chest pain. No worsening cough or sputum production. No abdominal pain or diarrhea. PHYSICAL EXAMINATION: Her blood pressure is 136/71 with a pulse of 85, temperature 97.6. She is 94% on a non- rebreather. General description is a middle-aged female up in the chair in no distress. Respiratory system: Unlabored breathing, decreased intensity of breath sounds. No wheeze. Heart S1, S2. Regular rate and rhythm. Abdomen soft, no tenderness. LABS: No new labs have been obtained today. DIAGNOSTIC IMPRESSION AND PLAN: Patient with acute respiratory failure secondary to severe COVID-19 pneumonia. Patient is currently on dexamethasone, Lovenox, zinc and ascorbic acid. To continue. Would benefit from baricitinib in view of worsening of respiratory status and requiring non- rebreather. Continue with supportive care. MMODL / IJN: [id number] /
--- NOTE | 2021-06-09 06:53 | XR ---
EXAMINATION TYPE: XR chest 1V portable DATE OF EXAM: 06/09/2021 CLINICAL HISTORY: Difficulty breathing and covid progress study. TECHNIQUE: Single AP portable upright view of the chest is obtained. COMPARISON: Chest x-ray from 3 days earlier FINDINGS: Bilateral multifocal and confluent opacities redemonstrated with relative sparing of left apex. Cardiac silhouette stable and upper limits of normal. Osseous structures are intact. Overlying EKG le ads redemonstrated. IMPRESSION: Bilateral multifocal and confluent opacities consistent with covid-19 infection are redem onstrated, no significant change from most recent x-ray.
[2021-06-09 07:16] LABS: Glucose,Whole Blood 110 mg/dL (75-99)
[2021-06-09] MEDS: INSULIN ASPART (NovoLOG) 100 UNIT/ML VIAL SQ SCH ×4 (07:17→22:03)
[2021-06-09] MEDS: SODIUM CHLORIDE 0.9% 1,000 ML IV SCH ×2 (07:17→14:14)
[2021-06-09 07:39] LABS: C Reactive Protein 21.4 mg/dL (<1.0)
[2021-06-09] MEDS: dexAMETHasone 2 MG TAB PO SCH (08:27)
[2021-06-09] MEDS: ASCORBIC ACID 500 MG TAB PO SCH ×2 (08:27→22:03)
[2021-06-09] MEDS: lisinopriL 5 MG TAB PO SCH (08:27)
[2021-06-09] MEDS: FAMOTIDINE 20 MG TAB PO SCH ×2 (08:27→22:03)
[2021-06-09] MEDS: CHOLECALCIFEROL 25 MCG (1000 IU) TABLET PO SCH (08:27)
[2021-06-09] MEDS: ZINC SULFATE 220 MG CAP PO SCH (08:27)
[2021-06-09] MEDS: CYANOCOBALAMIN 500 MCG TAB PO SCH (08:28)
[2021-06-09] MEDS: MULTIVITAMINS, THERA 1 EACH TAB PO SCH (08:28)
[2021-06-09] MEDS: ENOXAPARIN 40 MG/0.4 ML SYRINGE SQ SCH ×2 (08:28→22:03)
[2021-06-09 12:06] LABS: Glucose,Whole Blood 155 mg/dL (75-99)
--- NOTE | 2021-06-09 12:36 | P.PN ---
Subjective Progress Note Date: 06/08/21 06/05/2021 Patient evaluated today resting in bed. She states overall she is feeling better. Her oxygen saturation today was about 88% on 6L HF cannula, lungs do sound coarse but with increased aeration. She is using her spirometer. Chest CTA was negative for PE, Doppler negative for bilateral DVT. Urine culture positive for gram negative bacilli, she however does not have any complaints of dysuria, urgency, or frequency. She was started on rocephin empirically. Labs today show WBC of 10.71, sodium 135, glucose 140s, AST 140, ALT 134. She is being followed by ID and pulmonary services. Blood pressure today 175/70, heart rate 90, afebrile. 06/06/2021 Patient is noticing the bed. Unfortunately throughout the night she is now requiring 15L HF NC as she desatted on 6L HF. She denies any increasing or new shortness of breath, reports cough. She is using her spirometer. Labs today show a white count of 18, d-dimer 1.08, sodium 137, potassium 4.2, blood glucose in the 120s, AST 128, ALT 182, LDH 581, CRP 2.50. Urine culture is finalized as E. coli, on antibiotics. Repeat chest x-ray today shows correlate for pneumonia, edema. She has been followed closely by ID and pulmonary services. She continues on Decadron, Lovenox, zinc, vitamins. 06/07/2021 Patient evaluated today sitting up at the bedside. Her lungs are mostly clear, she does have a nonproductive cough complains of a sore throat which is dry. She is requiring 15 L high flow nasal cannula oxygen saturation is between 88- 91%. Blood pressure today is 145/82, heart rate 95-116 tachycardic, afebrile. Patient was hoping to be home for [place] however prognosis remains guarded as her oxygen needs continue to progress. Medical sensitivities are finalized, E. coli UTI which is susceptible to Rocephin. She continues on zinc, vitamins, Lovenox, Decadron. Labs are pending from today. ProBNP repeat 587, fluids were decreased to KVO yesterday as she has adequate oral intake so far. She is moving her bowels, urinating without difficulty. Remains short of breath at rest, and seems winded when carrying on a conversation. She does have incentive spirometer at the bedside which she is using. Patient is being followed closely by pulmonary and infectious disease services. 06/08/2021 Patient remains on the same amount of oxygen. No significant improvement in her overall clinical condition Constitutional: Denied any fatigue denied any fever. Cardio vascular: denied any chest pain, palpitations Gastrointestinal denied any nausea vomiting Pulmonary: Mentioned in the interval history Neurologic denied any new focal deficits All inpatient medications were reviewed and appropriate changes in these medications as dictated in the interval history and assessment and plan. ROS Constitutional: Denied any fever, reports fatigue Cardio vascular: denied any chest pain, palpitations Gastrointestinal denied any nausea vomiting Pulmonary: Reports SOB, cough Neurologic denied any new focal deficits All inpatient medications were reviewed and appropriate changes in these medications as dictated in the interval history and assessment and plan. PHYSICAL EXAMINATION: GENERAL: The patient is alert and oriented x3, appears mildly distressed when talking and with exertion, Well developed, well nourished. Obese. HEENT: Pupils are round and equally reacting to light. EOMI. No scleral icterus. No conjunctival pallor. Normocephalic, atraumatic. No pharyngeal erythema. No thyromegaly. CARDIOVASCULAR: S1 and S2 present. No murmurs, rubs, or gallops. tachycardic. PULMONARY: Lungs are clear to ausculation but diminished all lung godwin. ABDOMEN: Soft, nontender, nondistended, normoactive bowel sounds. No palpable organomegaly. MUSCULOSKELETAL: No joint swelling or deformity. EXTREMITIES: No cyanosis, clubbing, or pedal edema. NEUROLOGICAL: Gross neurological examination did not reveal any focal deficits. SKIN: No rashes. Assessment and plan Assessment Acute hypoxic respiratory failures secondary to COVID 19 requiring 15L HF nasal cannula Acute COVID 19 pneumonia UTI with E. Coli present on admission Leukocytosis secondary to above Elevated procalcitonin Hypertension Elevated inflammatory markers of COVID-19 Elevated DD no evidence of pulmonary embolism Hyperglycemia Obesity History of cholecystectomy GI Prophylaxis: Pepcid DVT Prophylaxis: Lovenox Plan Titrate oxygen as needed Continue IV antibiotics Continue decadron, lovenox, vitamins Continue novolog Continue all other supportive care Encourage IS, ambulation Prognosis guarded Objective - Vital Signs Vital signs: Vital Signs Temp 98.2 F 06/09/21 08:20 Pulse 103 H 06/09/21 08:20 Resp 18 06/09/21 08:20 BP 132/60 06/09/21 08:20 Pulse Ox 95 06/09/21 08:20 Intake & Output 06/08/21 06/09/21 06/09/21 18:59 06:59 18:59 Intake Total 720 20 180 Balance 720 20 180 Weight 113.398 kg 131.1 kg Intake: IV 20 Invasive Line 1 10 Invasive Line 2 10 Oral 720 180 Other: Voiding Method Bedside Commode # Voids 1 1 # Bowel Movements 1 - Labs CBC & Chem 7: 06/07/21 03:57 06/07/21 03:57 Labs: Abnormal Lab Results - Last 24 Hours (Table) 06/07/21 06/08/21 06/08/21 Range/Units 03:57 17:00 20:46 D-Dimer (<0.60) mg/L FEU POC Glucose (mg/dL) 141 H 132 H (75-99) mg/dL Lactate Dehydrogenase (313-618) U/L C-Reactive Protein (<1.0) mg/dL Free T3 pg/mL 2.10 L (2.30-4.20) pg/mL 06/09/21 06/09/21 06/09/21 Range/Units 06:11 06:11 07:15 D-Dimer 1.60 H (<0.60) mg/L FEU POC Glucose (mg/dL) 110 H (75-99) mg/dL Lactate Dehydrogenase 1550 H (313-618) U/L C-Reactive Protein 21.4 H (<1.0) mg/dL Free T3 pg/mL (2.30-4.20) pg/mL 06/09/21 Range/Units 12:05 D-Dimer (<0.60) mg/L FEU POC Glucose (mg/dL) 155 H (75-99) mg/dL Lactate Dehydrogenase (313-618) U/L C-Reactive Protein (<1.0) mg/dL Free T3 pg/mL (2.30-4.20) pg/mL Microbiology - Last 24 Hours (Table) 06/07/21 17:18 Gram Stain - Final Sputum Sputum Culture - Final 06/03/21 20:45 Blood Culture - Preliminary Blood No Growth after 120 hours 06/03/21 20:30 Blood Culture - Preliminary Blood No Growth after 120 hours
--- NOTE | 2021-06-09 13:21 | P.PN ---
Subjective Progress Note Date: 06/09/21 Principal diagnosis: CoVID 19 pneumonia The patient is seen today 06/06/2021 in follow-up on the regular medical floor. She is currently sitting up in bed. Awake and alert in no acute distress. Her oxygen requirements however continued to climb. She is now on 10 L high flow nasal cannula to maintain O2 saturation in the high 80s low 90s. She is morbidly obese. She has been treated for COVID-19 pneumonia. She was outside the window for Remdesivir. She is not vaccinated. Her CAT scan yesterday ruled out pulmonary embolism. There is however extensive bilateral opacities consistent with COVID-19 pneumonia. She also was treated for an E. coli UTI and remains on IV Rocephin. She is not a candidate for Baricitinib. White count 18.0. Hemoglobin 13.5. Lymphocytes 0.32. D-dimer 1.08. Sodium 137. Potassium 4.2. Creatinine 0.52. AST 128. ALT 182. LDH 581. She remains on Lovenox, Decadron, vitamin supplements. 0.9 normal saline at 50 MLS per hour. The patient is seen today 06/07/2021 in follow-up on the regular medical floor. She is awake and alert in no acute distress. She is dyspneic with conversation. Dyspneic with minimal exertion. She is requiring 15 L high flow nasal cannula to maintain O2 saturations in the low 90s. She is afebrile. Hemodynamically stable. Blood cultures revealed no growth. Urine culture positive for E. coli. White count 15.7. Hemoglobin 12.0. Leukocytes 0.95. Sodium 136. Potassium 4.3. Creatinine 0.5. Glucose 1:15. AST 108. ALT 230. She is continued on ceftriaxone. She is continued on Lovenox, Decadron, vitamin supplements. She was outside the window for Remdesivir. UTI rules out Baricitinib. The patient is seen today 06/08/2021 in follow-up on the selective care unit. She is still requiring 15 L high flow nasal cannula plus a nonrebreather mask. She had been transferred here from the regular medical floor for closer observation. She is currently sitting up in a chair at the bedside. She states she is doing about the same compared to yesterday. O2 saturations in the low 90s. She's been afebrile. Hemodynamically stable. Urine culture is positive for E. coli. Sputum culture pending. Blood cultures reveal no growth to date. Blood glucose 158. She remains on Decadron, Lovenox, vitamin supplements. The patient is seen today 06/09/2021 in follow-up on the selective care unit. She rarely sitting up in a chair at the bedside. She is still requiring 15 L high flow nasal cannula +100% nonrebreather mask. chest x-ray continues to show bilateral multifocal and confluent opacities consistent with COVID-19 infection. She is getting somewhat discouraged regarding her slow progress. She is utilizing the incentive spirometer. She is up ambulating with assistance. She is continued on Decadron, Lovenox, vitamin supplements. urine culture is positive for E. coli. Blood cultures revealed no growth. Sputum culture revealed no growth. d-dimer 1.6. LDH 1550. C-reactive protein 21.4. Glucose 155. Objective - Vital Signs Vital signs: Vital Signs Temp 96.6 F L 06/09/21 12:59 Pulse 99 06/09/21 12:59 Resp 18 06/09/21 12:59 BP 140/72 06/09/21 12:59 Pulse Ox 92 L 06/09/21 12:59 Intake & Output 06/08/21 06/09/21 06/09/21 18:59 06:59 18:59 Intake Total 720 20 180 Balance 720 20 180 Weight 113.398 kg 131.1 kg Intake: IV 20 Invasive Line 1 10 Invasive Line 2 10 Oral 720 180 Other: Voiding Method Bedside Commode # Voids 1 1 # Bowel Movements 1 - Exam GENERAL EXAM: Alert, pleasant 65-year-old morbidly obese female patient, on 15 L high flow nasal cannula +100% nonrebreather mask, in a chair, fairly comfortable in no apparent distress. HEAD: Normocephalic. EYES: Normal reaction of pupils, equal size. NOSE: Clear with pink turbinates. THROAT: No erythema or exudates. NECK: No masses, no JVD. CHEST: No chest wall deformity. LUNGS: Equal air entry with coarse crackles in the bilateral bases. CVS: S1 and S2 normal with no audible murmur, regular rhythm. ABDOMEN: No hepatosplenomegaly, normal bowel sounds, no guarding or rigidity. SPINE: No scoliosis or deformity SKIN: No rashes CENTRAL NERVOUS SYSTEM: No focal deficits, tone is normal in all 4 extremities. EXTREMITIES: There is no peripheral edema. No clubbing, no cyanosis. Peripheral pulses are intact. - Labs CBC & Chem 7: 06/07/21 03:57 06/07/21 03:57 Labs: Abnormal Lab Results - Last 24 Hours (Table) 06/07/21 06/08/21 06/08/21 Range/Units 03:57 17:00 20:46 D-Dimer (<0.60) mg/L FEU POC Glucose (mg/dL) 141 H 132 H (75-99) mg/dL Lactate Dehydrogenase (313-618) U/L C-Reactive Protein (<1.0) mg/dL Free T3 pg/mL 2.10 L (2.30-4.20) pg/mL 06/09/21 06/09/21 06/09/21 Range/Units 06:11 06:11 07:15 D-Dimer 1.60 H (<0.60) mg/L FEU POC Glucose (mg/dL) 110 H (75-99) mg/dL Lactate Dehydrogenase 1550 H (313-618) U/L C-Reactive Protein 21.4 H (<1.0) mg/dL Free T3 pg/mL (2.30-4.20) pg/mL 06/09/21 Range/Units 12:05 D-Dimer (<0.60) mg/L FEU POC Glucose (mg/dL) 155 H (75-99) mg/dL Lactate Dehydrogenase (313-618) U/L C-Reactive Protein (<1.0) mg/dL Free T3 pg/mL (2.30-4.20) pg/mL Microbiology - Last 24 Hours (Table) 06/07/21 17:18 Gram Stain - Final Sputum Sputum Culture - Final 06/03/21 20:45 Blood Culture - Preliminary Blood No Growth after 120 hours 06/03/21 20:30 Blood Culture - Preliminary Blood No Growth after 120 hours Assessment and Plan Assessment: 1 Acute hypoxemic respiratory failure secondary to COVID-19 pneumonia. Outside the window for Remdesivir. Not vaccinated. Now with a E. coli UTI. Not qualifying for Baricitinib. Currently on 15 L high flow nasal cannula +100% nonrebreather. Computed tomography scan of the chest ruled out pulmonary embolism. There is extensive bilateral patchy densities consistent with CoVID pneumonia. 2 Morbid obesity, BMI 49.6 kg/m 3 urinary tract infection secondary to E. coli, currently on IV Rocephin 4 Mild transaminitis secondary to COVID-19 infection Plan: She was seen and evaluated Chest x-ray and labs reviewed Continued on Decadron, Lovenox, vitamin supplements Encouraged to increase the use of the incentive spirometer On 15 L high flow nasal cannula plus a nonrebreather mask Titrate the FiO2 as tolerated Increase her activity as tolerated Condition is guarded We will continue to follow I, the cosigning physician, performed a history & physical examination of the patient. Lungs sounds with coarse crackles in the bilateral bases. Maintaining good O2 saturations in the 90s on 15 L high flow nasal cannula +100% nonrebreather mask. I discussed the assessment and plan of care with my nurse practitioner, Ivone Lopez. I attest to the above note as dictated by her.
--- NOTE | 2021-06-09 15:41 | PN ---
PROGRESS NOTE DATE OF SERVICE: 06/09/2021 REASON FOR FOLLOWUP: COVID-19 pneumonia. INTERVAL HISTORY: The patient is afebrile. The patient is mentioned she is breathing slightly comfortably; however, she is requiring a non-rebreather. The patient denies having any chest pain or worsening cough or sputum production. No abdominal pain or diarrhea. PHYSICAL EXAMINATION: Blood pressure 140/72 with a pulse of 99, temperature 96.6. She is 92% on 15 L high- flow oxygen. General description is a middle-aged female up in the chair in no distress. Respiratory system: Unlabored breathing. Coarse breath sounds bilaterally. No wheeze. Heart S1, S2. Regular rate and rhythm. Abdomen soft, no tenderness. LABS: D-dimer is 1.60. CRP is 21.4. LDH is . DIAGNOSTIC IMPRESSION AND PLAN: Patient with acute respiratory failure secondary to the COVID-19 infection with worsening of her respiratory status. She will benefit from baricitinib. I do not see any infectious she did have a positive urine with an E coli. She did not have any symptoms and has already received 4 doses of Rocephin and currently off antibiotic for the last few days. Continue the current supportive treatment and monitor clinical course closely. MMODL / IJN: [id number] /
[2021-06-09 16:59] LABS: Glucose,Whole Blood 162 mg/dL (75-99)
[2021-06-09 17:04] LABS: ALT 251 U/L (4-34); AST 103 U/L (14-36); African American GFR (CKD) >90 (>60 ml/min/1.73 sqM); Albumin 2.9 g/dL (3.5-5.0); Alkaline Phosphatase 104 U/L (38-126); Anion Gap 6 mmol/L; Blood Urea Nitrogen 19 mg/dL (7-17); Calcium 8.7 mg/dL (8.4-10.2); Carbon Dioxide 30 mmol/L (22-30); Chloride 95 mmol/L (98-107); Glucose 191 mg/dL (74-99); Non-African American GFR(CKD) >90 (>60 ml/min/1.73 sqM); Potassium 4.6 mmol/L (3.5-5.1); Sodium 131 mmol/L (137-145); Total Bilirubin 0.7 mg/dL (0.2-1.3); Total Protein 6.6 g/dL (6.3-8.2)
[2021-06-09] MEDS: ALBUTEROL HFA INHALER INHALATION PRN ×2 (17:06→20:02)
[2021-06-09 20:03] LABS: Glucose,Whole Blood 145 mg/dL (75-99)
[2021-06-10 06:04] LABS: Glucose,Whole Blood 115 mg/dL (75-99)
[2021-06-10] MEDS: INSULIN ASPART (NovoLOG) 100 UNIT/ML VIAL SQ SCH ×4 (06:04→21:41)
[2021-06-10] MEDS: SODIUM CHLORIDE 0.9% 1,000 ML IV SCH (06:05)
[2021-06-10 07:43] LABS: Basophils # (A) 0.1 k/uL (0-0.2); Basophils % (A) 0 %; Eosinophils # (A) 0.1 k/uL (0-0.7); Eosinophils % (A) 1 %; HCT 40.4 % (34.0-46.0); Lymphocytes % (A) 6 %; MCH 30.3 pg (25.0-35.0); MCHC 32.2 g/dL (31.0-37.0); MCV 93.8 fL (80.0-100.0); Mean Platelet Volume 8.7; Monocytes # (A) 1.1 k/uL (0-1.0); Monocytes % (A) 6 %; Neutrophils # (A) 16.3 k/uL (1.3-7.7); Neutrophils % (A) 87 %; Platelet Count 413 k/uL (150-450); RDW 13.1 % (11.5-15.5); WBC 18.8 k/uL (3.8-10.6)
[2021-06-10 07:45] LABS: ALT 235 U/L (4-34); AST 98 U/L (14-36); African American GFR (CKD) >90 (>60 ml/min/1.73 sqM); Albumin 2.9 g/dL (3.5-5.0); Alkaline Phosphatase 112 U/L (38-126); Anion Gap 10 mmol/L; Blood Urea Nitrogen 18 mg/dL (7-17); Calcium 8.7 mg/dL (8.4-10.2); Carbon Dioxide 26 mmol/L (22-30); Chloride 96 mmol/L (98-107); Glucose 110 mg/dL (74-99); Non-African American GFR(CKD) >90 (>60 ml/min/1.73 sqM); Potassium 4.9 mmol/L (3.5-5.1); Sodium 132 mmol/L (137-145); Total Bilirubin 0.9 mg/dL (0.2-1.3); Total Protein 6.6 g/dL (6.3-8.2)
--- NOTE | 2021-06-10 09:19 | P.PN ---
Subjective 06/05/2021 Patient evaluated today resting in bed. She states overall she is feeling better. Her oxygen saturation today was about 88% on 6L HF cannula, lungs do sound coarse but with increased aeration. She is using her spirometer. Chest CTA was negative for PE, Doppler negative for bilateral DVT. Urine culture positive for gram negative bacilli, she however does not have any complaints of dysuria, urgency, or frequency. She was started on rocephin empirically. Labs today show WBC of 10.71, sodium 135, glucose 140s, AST 140, ALT 134. She is being followed by ID and pulmonary services. Blood pressure today 175/70, heart rate 90, afebrile. 06/06/2021 Patient is noticing the bed. Unfortunately throughout the night she is now requiring 15L HF NC as she desatted on 6L HF. She denies any increasing or new shortness of breath, reports cough. She is using her spirometer. Labs today show a white count of 18, d-dimer 1.08, sodium 137, potassium 4.2, blood glucose in the 120s, AST 128, ALT 182, LDH 581, CRP 2.50. Urine culture is finalized as E. coli, on antibiotics. Repeat chest x-ray today shows correlate for pneumonia, edema. She has been followed closely by ID and pulmonary services. She continues on Decadron, Lovenox, zinc, vitamins. 06/07/2021 Patient evaluated today sitting up at the bedside. Her lungs are mostly clear, she does have a nonproductive cough complains of a sore throat which is dry. She is requiring 15 L high flow nasal cannula oxygen saturation is between 88- 91%. Blood pressure today is 145/82, heart rate 95-116 tachycardic, afebrile. Patient was hoping to be home for [place] however prognosis remains guarded as her oxygen needs continue to progress. Medical sensitivities are finalized, E. coli UTI which is susceptible to Rocephin. She continues on zinc, vitamins, Lovenox, Decadron. Labs are pending from today. ProBNP repeat 587, fluids were decreased to KVO yesterday as she has adequate oral intake so far. She is moving her bowels, urinating without difficulty. Remains short of breath at rest, and seems winded when carrying on a conversation. She does have incentive spiromete r at the bedside which she is using. Patient is being followed closely by pulmonary and infectious disease services. 06/08/2021 Patient remains on the same amount of oxygen. No significant improvement in her overall clinical condition 06/09/2021 Patient's oxygen requirements remain the same although his saturations are bit better today and hoping that she started improving. Patient overall feels little bit better. 06/10/2021 Patient feels better but her dogs and requirements are not coming down patient may require Airvo, has a oxygen saturations are low in spite of nonrebreather and 15 L of oxygen cannula patient is bit hyponatremic patient will not be started on any IV fluids will continue to monitor serum sodium. Present serum sodium is 131. Constitutional: Denied any fatigue denied any fever. Cardio vascular: denied any chest pain, palpitations Gastrointestinal denied any nausea vomiting Pulmonary: Mentioned in the interval history Neurologic denied any new focal deficits All inpatient medications were reviewed and appropriate changes in these medications as dictated in the interval history and assessment and plan. PHYSICAL EXAMINATION: GENERAL: The patient is alert and oriented x3, appears mildly distressed when talking and with exertion, Well developed, well nourished. Obese. HEENT: Pupils are round and equally reacting to light. EOMI. No scleral icterus. No conjunctival pallor. Normocephalic, atraumatic. No pharyngeal erythema. No thyromegaly. CARDIOVASCULAR: S1 and S2 present. No murmurs, rubs, or gallops. tachycardic. PULMONARY: Lungs are clear to ausculation but diminished all lung godwin. ABDOMEN: Soft, nontender, nondistended, normoactive bowel sounds. No palpable organomegaly. MUSCULOSKELETAL: No joint swelling or deformity. EXTREMITIES: No cyanosis, clubbing, or pedal edema. NEUROLOGICAL: Gross neurological examination did not reveal any focal deficits. SKIN: No rashes. Assessment and plan Assessment Acute hypoxic respiratory failures secondary to COVID 19 requiring 15L HF nasal cannula will need Airvo. COVID 19 pneumonia UTI with E. Coli present on admission Leukocytosis secondary to above Elevated procalcitonin Hypertension Elevated inflammatory markers of COVID-19 Elevated DD no evidence of pulmonary embolism Hyperglycemia Obesity History of cholecystectomy GI Prophylaxis: Pepcid DVT Prophylaxis: Lovenox Plan Titrate oxygen as needed Continue IV antibiotics Continue decadron, lovenox, vitamins Continue novolog Continue all other supportive care Encourage IS, ambulation Prognosis guarded Objective - Vital Signs Vital signs: Vital Signs Temp 96.2 F L 06/10/21 04:00 Pulse 107 H 06/10/21 04:00 Resp 20 06/10/21 04:00 BP 138/76 06/10/21 04:00 Pulse Ox 89 L 06/10/21 04:00 Intake & Output 06/09/21 06/10/21 06/10/21 18:59 06:59 18:59 Intake Total 600 Balance 600 Intake: Oral 600 Other: Voiding Method Bedside Commode # Voids 2 1 # Bowel Movements 1 - Labs CBC & Chem 7: 06/10/21 06:20 06/10/21 06:20 Labs: Abnormal Lab Results - Last 24 Hours (Table) 06/09/21 06/09/21 06/09/21 Range/Units 12:05 15:46 16:58 WBC (3.8-10.6) k/uL Neutrophils # (1.3-7.7) k/uL Monocytes # (0-1.0) k/uL Sodium 131 L (137-145) mmol/L Chloride 95 L (98-107) mmol/L BUN 19 H (7-17) mg/dL Creatinine (0.52-1.04) mg/dL Glucose 191 H (74-99) mg/dL POC Glucose (mg/dL) 155 H 162 H (75-99) mg/dL AST 103 H (14-36) U/L ALT 251 H (4-34) U/L Albumin 2.9 L (3.5-5.0) g/dL 06/09/21 06/10/21 06/10/21 Range/Units 20:02 06:03 06:20 WBC 18.8 H (3.8-10.6) k/uL Neutrophils # 16.3 H (1.3-7.7) k/uL Monocytes # 1.1 H (0-1.0) k/uL Sodium (137-145) mmol/L Chloride (98-107) mmol/L BUN (7-17) mg/dL Creatinine (0.52-1.04) mg/dL Glucose (74-99) mg/dL POC Glucose (mg/dL) 145 H 115 H (75-99) mg/dL AST (14-36) U/L ALT (4-34) U/L Albumin (3.5-5.0) g/dL 06/10/21 Range/Units 06:20 WBC (3.8-10.6) k/uL Neutrophils # (1.3-7.7) k/uL Monocytes # (0-1.0) k/uL Sodium 132 L (137-145) mmol/L Chloride 96 L (98-107) mmol/L BUN 18 H (7-17) mg/dL Creatinine 0.51 L (0.52-1.04) mg/dL Glucose 110 H (74-99) mg/dL POC Glucose (mg/dL) (75-99) mg/dL AST 98 H (14-36) U/L ALT 235 H (4-34) U/L Albumin 2.9 L (3.5-5.0) g/dL Microbiology - Last 24 Hours (Table) 06/03/21 20:45 Blood Culture - Final Blood No Growth after 144 hours 06/03/21 20:30 Blood Culture - Final Blood No Growth after 144 hours 06/07/21 17:18 Gram Stain - Final Sputum Sputum Culture - Final
[2021-06-10] MEDS: ENOXAPARIN 40 MG/0.4 ML SYRINGE SQ SCH ×2 (09:22→20:13)
[2021-06-10] MEDS: lisinopriL 5 MG TAB PO SCH (09:22)
[2021-06-10] MEDS: MULTIVITAMINS, THERA 1 EACH TAB PO SCH (09:22)
[2021-06-10] MEDS: CHOLECALCIFEROL 25 MCG (1000 IU) TABLET PO SCH (09:22)
[2021-06-10] MEDS: ZINC SULFATE 220 MG CAP PO SCH (09:22)
[2021-06-10] MEDS: ASCORBIC ACID 500 MG TAB PO SCH ×2 (09:22→20:13)
[2021-06-10] MEDS: dexAMETHasone 2 MG TAB PO SCH (09:22)
[2021-06-10] MEDS: CYANOCOBALAMIN 500 MCG TAB PO SCH (09:22)
[2021-06-10] MEDS: FAMOTIDINE 20 MG TAB PO SCH ×2 (09:22→20:14)
[2021-06-10] MEDS: ALBUTEROL HFA INHALER INHALATION PRN (09:50)
--- NOTE | 2021-06-10 11:00 | P.PN ---
Subjective Progress Note Date: 06/10/21 Principal diagnosis: CoVID 19 pneumonia The patient is seen today 06/06/2021 in follow-up on the regular medical floor. She is currently sitting up in bed. Awake and alert in no acute distress. Her oxygen requirements however continued to climb. She is now on 10 L high flow nasal cannula to maintain O2 saturation in the high 80s low 90s. She is morbidly obese. She has been treated for COVID-19 pneumonia. She was outside the window for Remdesivir. She is not vaccinated. Her CAT scan yesterday ruled out pulmonary embolism. There is however extensive bilateral opacities consistent with COVID-19 pneumonia. She also was treated for an E. coli UTI and remains on IV Rocephin. She is not a candidate for Baricitinib. White count 18.0. Hemoglobin 13.5. Lymphocytes 0.32. D-dimer 1.08. Sodium 137. Potassium 4.2. Creatinine 0.52. AST 128. ALT 182. LDH 581. She remains on Lovenox, Decadron, vitamin supplements. 0.9 normal saline at 50 MLS per hour. The patient is seen today 06/07/2021 in follow-up on the regular medical floor. She is awake and alert in no acute distress. She is dyspneic with conversation. Dyspneic with minimal exertion. She is requiring 15 L high flow nasal cannula to maintain O2 saturations in the low 90s. She is afebrile. Hemodynamically stable. Blood cultures revealed no growth. Urine culture positive for E. coli. White count 15.7. Hemoglobin 12.0. Leukocytes 0.95. Sodium 136. Potassium 4.3. Creatinine 0.5. Glucose 1:15. AST 108. ALT 230. She is continued on ceftriaxone. She is continued on Lovenox, Decadron, vitamin supplements. She was outside the window for Remdesivir. UTI rules out Baricitinib. The patient is seen today 06/08/2021 in follow-up on the selective care unit. She is still requiring 15 L high flow nasal cannula plus a nonrebreather mask. She had been transferred here from the regular medical floor for closer observation. She is currently sitting up in a chair at the bedside. She states she is doing about the same compared to yesterday. O2 saturations in the low 90s. She's been afebrile. Hemodynamically stable. Urine culture is positive for E. coli. Sputum culture pending. Blood cultures reveal no growth to date. Blood glucose 158. She remains on Decadron, Lovenox, vitamin supplements. The patient is seen today 06/09/2021 in follow-up on the selective care unit. She rarely sitting up in a chair at the bedside. She is still requiring 15 L high flow nasal cannula +100% nonrebreather mask. chest x-ray continues to show bilateral multifocal and confluent opacities consistent with COVID-19 infection. She is getting somewhat discouraged regarding her slow progress. She is utilizing the incentive spirometer. She is up ambulating with assistance. She is continued on Decadron, Lovenox, vitamin supplements. urine culture is positive for E. coli. Blood cultures revealed no growth. Sputum culture revealed no growth. d-dimer 1.6. LDH 1550. C-reactive protein 21.4. Glucose 155. The patient is seen today 06/10/2021 in follow-up on the selective care unit. She is awake and alert. Mild respiratory distress. Sitting up in a chair at the bedside. Still requiring 15 L high flow nasal cannula +100% nonrebreather mask. We are trying to qualify her for Baricitinib however her liver enzymes have been elevated. Asymptomatic UTI and her antibiotics have been discontinued. She remains on Lovenox, Decadron, vitamin supplements. White count 18.8. Hemoglobin 13.0. Sodium 132. Potassium 4.9. Creatinine 0.51 glucose 110. AST 98. ALT 235. Objective - Vital Signs Vital signs: Vital Signs Temp 98.3 F 06/10/21 09:35 Pulse 114 H 06/10/21 09:35 Resp 22 06/10/21 09:35 BP 129/71 06/10/21 09:35 Pulse Ox 86 L 06/10/21 09:35 Intake & Output 06/09/21 06/10/21 06/10/21 18:59 06:59 18:59 Intake Total 600 Balance 600 Intake: Oral 600 Other: Voiding Method Bedside Commode Bedside Commode # Voids 2 1 # Bowel Movements 1 - Exam GENERAL EXAM: Alert, pleasant 65-year-old morbidly obese female patient, on 15 L high flow nasal cannula +100% nonrebreather mask, in a chair, fairly comfort able. HEAD: Normocephalic. EYES: Normal reaction of pupils, equal size. NOSE: Clear with pink turbinates. THROAT: No erythema or exudates. NECK: No masses, no JVD. CHEST: No chest wall deformity. LUNGS: Equal air entry with coarse crackles in the bilateral bases. CVS: S1 and S2 normal with no audible murmur, regular rhythm. ABDOMEN: No hepatosplenomegaly, normal bowel sounds, no guarding or rigidity. SPINE: No scoliosis or deformity SKIN: No rashes CENTRAL NERVOUS SYSTEM: No focal deficits, tone is normal in all 4 extremities. EXTREMITIES: There is no peripheral edema. No clubbing, no cyanosis. Peripheral pulses are intact. - Labs CBC & Chem 7: 06/10/21 06:20 06/10/21 06:20 Labs: Abnormal Lab Results - Last 24 Hours (Table) 06/09/21 06/09/21 06/09/21 Range/Units 12:05 15:46 16:58 WBC (3.8-10.6) k/uL Neutrophils # (1.3-7.7) k/uL Monocytes # (0-1.0) k/uL Sodium 131 L (137-145) mmol/L Chloride 95 L (98-107) mmol/L BUN 19 H (7-17) mg/dL Creatinine (0.52-1.04) mg/dL Glucose 191 H (74-99) mg/dL POC Glucose (mg/dL) 155 H 162 H (75-99) mg/dL AST 103 H (14-36) U/L ALT 251 H (4-34) U/L Albumin 2.9 L (3.5-5.0) g/dL 06/09/21 06/10/21 06/10/21 Range/Units 20:02 06:03 06:20 WBC 18.8 H (3.8-10.6) k/uL Neutrophils # 16.3 H (1.3-7.7) k/uL Monocytes # 1.1 H (0-1.0) k/uL Sodium (137-145) mmol/L Chloride (98-107) mmol/L BUN (7-17) mg/dL Creatinine (0.52-1.04) mg/dL Glucose (74-99) mg/dL POC Glucose (mg/dL) 145 H 115 H (75-99) mg/dL AST (14-36) U/L ALT (4-34) U/L Albumin (3.5-5.0) g/dL 06/10/21 Range/Units 06:20 WBC (3.8-10.6) k/uL Neutrophils # (1.3-7.7) k/uL Monocytes # (0-1.0) k/uL Sodium 132 L (137-145) mmol/L Chloride 96 L (98-107) mmol/L BUN 18 H (7-17) mg/dL Creatinine 0.51 L (0.52-1.04) mg/dL Glucose 110 H (74-99) mg/dL POC Glucose (mg/dL) (75-99) mg/dL AST 98 H (14-36) U/L ALT 235 H (4-34) U/L Albumin 2.9 L (3.5-5.0) g/dL Microbiology - Last 24 Hours (Table) 06/03/21 20:45 Blood Culture - Final Blood No Growth after 144 hours 06/03/21 20:30 Blood Culture - Final Blood No Growth after 144 hours 06/07/21 17:18 Gram Stain - Final Sputum Sputum Culture - Final Assessment and Plan Assessment: 1 Acute hypoxemic respiratory failure secondary to COVID-19 pneumonia. Outside the window for Remdesivir. Not vaccinated. Asymptomatic UTI and antibiotics have been discontinued per ID services. Attempting to qualify for Baricitinib however her liver enzymes have been elevated. Currently on 15 L high flow nasal cannula +100% nonrebreather. Computed tomography scan of the chest ruled out pulmonary embolism. There is extensive bilateral patchy densities consistent with CoVID pneumonia. 2 Morbid obesity, BMI 49.6 kg/m 3 Urinary tract infection secondary to E. coli, asymptomatic and discontinued Rocephin after 4 days 4 Transaminitis secondary to COVID-19 infection Plan: She was seen and evaluated Continued on Decadron, Lovenox, vitamin supplements Encouraged the increase use of the incentive spirometer On 15 L high flow nasal cannula plus a 100% nonrebreather mask Titrate the FiO2 as tolerated Increase her activity as tolerated Asymptomatic UTI, antibiotics discontinued Attempt to qualify for Baricitinib however her liver enzymes remain elevated Condition is guarded We will continue to follow I, the cosigning physician, performed a history & physical examination of the patient. Lungs sounds with coarse crackles in the bilateral bases. Maintaining O2 saturations in the mid to upper 80s on 15 L high flow nasal cannula +100% nonrebreather mask. I discussed the assessment and plan of care with my nurse practitioner, Ivone oLpez. I attest to the above note as dictated by her.
[2021-06-10 12:09] LABS: Glucose,Whole Blood 130 mg/dL (75-99)
[2021-06-10 16:57] LABS: Glucose,Whole Blood 185 mg/dL (75-99)
[2021-06-10] MEDS: ALBUTEROL HFA INHALER INHALATION SCH (19:56)
--- NOTE | 2021-06-10 20:09 | PN ---
PROGRESS NOTE DATE OF SERVICE: 06/10/2021 REASON FOR FOLLOWUP: COVID-19 pneumonia. INTERVAL HISTORY: The patient is afebrile. The patient is breathing slightly comfortably. However, still requiring non-rebreather and AIRVO. Patient denies having any chest pain. No worsening cough or sputum production. No abdominal pain or diarrhea. PHYSICAL EXAMINATION: Blood pressure 135/66, pulse of 106, temperature 99.2. She is 90% on 90% FiO2. General description is a middle-aged female up in the chair in no distress. Respiratory system: Unlabored breathing, decreased intensity of breath sounds. No wheeze. Heart S1, S2. Regular rate and rhythm. Abdomen soft, no tenderness. LABS: Hemoglobin 13, white count 18.8. Liver enzymes are mildly elevated. Creatinine 0.51. DIAGNOSTIC IMPRESSION AND PLAN: Patient with acute respiratory failure secondary to COVID-19 pneumonia in this patient who did have worsening of her respiratory status. Baricitinib was ordered; however, it is put on hold because of elevated liver enzymes. Patient to continue with dexamethasone, Lovenox, zinc and ascorbic acid. Monitor clinical course closely. MMODL / IJN: [id number] /
[2021-06-10 20:35] LABS: Glucose,Whole Blood 150 mg/dL (75-99)
[2021-06-11] MEDS: SODIUM CHLORIDE 0.9% 1,000 ML IV SCH ×3 (06:29→21:26)
[2021-06-11] MEDS: INSULIN ASPART (NovoLOG) 100 UNIT/ML VIAL SQ SCH ×4 (06:29→21:25)
[2021-06-11 06:30] LABS: Glucose,Whole Blood 130 mg/dL (75-99)
[2021-06-11 08:27] LABS: Basophils # (A) 0.1 k/uL (0-0.2); Basophils % (A) 0 %; Eosinophils # (A) 0.1 k/uL (0-0.7); Eosinophils % (A) 0 %; HCT 39.2 % (34.0-46.0); HGB 12.5 gm/dL (11.4-16.0); Lymphocytes # (A) 0.9 k/uL (1.0-4.8); Lymphocytes % (A) 4 %; MCH 30.2 pg (25.0-35.0); MCV 94.5 fL (80.0-100.0); Mean Platelet Volume 7.7; Monocytes # (A) 0.8 k/uL (0-1.0); Monocytes % (A) 4 %; Neutrophils # (A) 19.9 k/uL (1.3-7.7); Neutrophils % (A) 91 %; Platelet Count 456 k/uL (150-450); RBC 4.15 m/uL (3.80-5.40); RDW 12.9 % (11.5-15.5); WBC 21.9 k/uL (3.8-10.6)
[2021-06-11 08:39] LABS: ALT 221 U/L (4-34); AST 97 U/L (14-36); African American GFR (CKD) >90 (>60 ml/min/1.73 sqM); Albumin 2.7 g/dL (3.5-5.0); Alkaline Phosphatase 126 U/L (38-126); Anion Gap 8 mmol/L; Blood Urea Nitrogen 18 mg/dL (7-17); Calcium 8.3 mg/dL (8.4-10.2); Carbon Dioxide 26 mmol/L (22-30); Chloride 93 mmol/L (98-107); Glucose 144 mg/dL (74-99); LDH 1726 U/L (313-618); Non-African American GFR(CKD) >90 (>60 ml/min/1.73 sqM); Potassium 4.7 mmol/L (3.5-5.1); Sodium 127 mmol/L (137-145); Total Protein 6.3 g/dL (6.3-8.2)
[2021-06-11] MEDS: ALBUTEROL HFA INHALER INHALATION SCH ×4 (09:02→20:38)
[2021-06-11] MEDS: dexAMETHasone 2 MG TAB PO SCH (09:31)
[2021-06-11] MEDS: MULTIVITAMINS, THERA 1 EACH TAB PO SCH (09:31)
[2021-06-11] MEDS: CHOLECALCIFEROL 25 MCG (1000 IU) TABLET PO SCH (09:31)
[2021-06-11] MEDS: ZINC SULFATE 220 MG CAP PO SCH (09:31)
[2021-06-11] MEDS: lisinopriL 5 MG TAB PO SCH (09:31)
[2021-06-11] MEDS: ASCORBIC ACID 500 MG TAB PO SCH ×2 (09:31→21:25)
[2021-06-11] MEDS: ENOXAPARIN 40 MG/0.4 ML SYRINGE SQ SCH ×2 (09:31→21:25)
[2021-06-11] MEDS: FAMOTIDINE 20 MG TAB PO SCH ×2 (09:32→21:25)
[2021-06-11] MEDS: CYANOCOBALAMIN 500 MCG TAB PO SCH (09:32)
--- NOTE | 2021-06-11 10:43 | P.PN ---
Subjective 06/05/2021 Patient evaluated today resting in bed. She states overall she is feeling better. Her oxygen saturation today was about 88% on 6L HF cannula, lungs do sound coarse but with increased aeration. She is using her spirometer. Chest CTA was negative for PE, Doppler negative for bilateral DVT. Urine culture positive for gram negative bacilli, she however does not have any complaints of dysuria, urgency, or frequency. She was started on rocephin empirically. Labs today show WBC of 10.71, sodium 135, glucose 140s, AST 140, ALT 134. She is being followed by ID and pulmonary services. Blood pressure today 175/70, heart rate 90, afebrile. 06/06/2021 Patient is noticing the bed. Unfortunately throughout the night she is now requiring 15L HF NC as she desatted on 6L HF. She denies any increasing or new shortness of breath, reports cough. She is using her spirometer. Labs today show a white count of 18, d-dimer 1.08, sodium 137, potassium 4.2, blood glucose in the 120s, AST 128, ALT 182, LDH 581, CRP 2.50. Urine culture is finalized as E. coli, on antibiotics. Repeat chest x-ray today shows correlate for pneumonia, edema. She has been followed closely by ID and pulmonary services. She continues on Decadron, Lovenox, zinc, vitamins. 06/07/2021 Patient evaluated today sitting up at the bedside. Her lungs are mostly clear, she does have a nonproductive cough complains of a sore throat which is dry. She is requiring 15 L high flow nasal cannula oxygen saturation is between 88- 91%. Blood pressure today is 145/82, heart rate 95-116 tachycardic, afebrile. Patient was hoping to be home for [place] however prognosis remains guarded as her oxygen needs continue to progress. Medical sensitivities are finalized, E. coli UTI which is susceptible to Rocephin. She continues on zinc, vitamins, Lovenox, Decadron. Labs are pending from today. ProBNP repeat 587, fluids were decreased to KVO yesterday as she has adequate oral intake so far. She is moving her bowels, urinating without difficulty. Remains short of breath at rest, and seems winded when carrying on a conversation. She does have incentive spiromete r at the bedside which she is using. Patient is being followed closely by pulmonary and infectious disease services. 06/08/2021 Patient remains on the same amount of oxygen. No significant improvement in her overall clinical condition 06/09/2021 Patient's oxygen requirements remain the same although his saturations are bit better today and hoping that she started improving. Patient overall feels little bit better. 06/10/2021 Patient feels better but her dogs and requirements are not coming down patient may require Airvo, has a oxygen saturations are low in spite of nonrebreather and 15 L of oxygen cannula patient is bit hyponatremic patient will not be started on any IV fluids will continue to monitor serum sodium. Present serum sodium is 131. 06/11/2021 Patient is not doing well at all patient may need BiPAP. Patient was on Barcitinib being held at this time because of elevated liver enzymes. Patient leukocytosis is bit worse patient became hyponatremic patient was started back on IV fluids. Constitutional: Denied any fatigue denied any fever. Cardio vascular: denied any chest pain, palpitations Gastrointestinal denied any nausea vomiting Pulmonary: Mentioned in the interval history Neurologic denied any new focal deficits All inpatient medications were reviewed and appropriate changes in these medications as dictated in the interval history and assessment and plan. PHYSICAL EXAMINATION: GENERAL: The patient is alert and oriented x3, appears mildly distressed when talking and with exertion, Well developed, well nourished. Obese. HEENT: Pupils are round and equally reacting to light. EOMI. No scleral icterus. No conjunctival pallor. Normocephalic, atraumatic. No pharyngeal erythema. No thyromegaly. CARDIOVASCULAR: S1 and S2 present. No murmurs, rubs, or gallops. tachycardic. PULMONARY: Lungs are clear to ausculation but diminished all lung godwin. ABDOMEN: Soft, nontender, nondistended, normoactive bowel sounds. No palpable organomegaly. MUSCULOSKELETAL: No joint swelling or deformity. EXTREMITIES: No cyanosis, clubbing, or pedal edema. NEUROLOGICAL: Gross neurological examination did not reveal any focal deficits. SKIN: No rashes. Assessment and plan Assessment Acute hypoxic respiratory failures secondary to COVID 19 requiring Airvo. Need BiPAP patient has significant worsening compared to yesterday leukocytosis is worse. Hypovolemic hyponatremia patient will be started on IV fluids COVID 19 pneumonia UTI with E. Coli present on admission Leukocytosis secondary to above Elevated procalcitonin Hypertension Elevated inflammatory markers of COVID-19 Elevated DD no evidence of pulmonary embolism Hyperglycemia Obesity History of cholecystectomy GI Prophylaxis: Pepcid DVT Prophylaxis: Lovenox Plan Titrate oxygen as needed Continue IV antibiotics Continue decadron, lovenox, vitamins Continue novolog Continue all other supportive care Encourage IS, ambulation Prognosis guarded Objective - Vital Signs Vital signs: Vital Signs Temp 98.2 F 06/11/21 08:00 Pulse 125 H 06/11/21 08:00 Resp 26 H 06/11/21 08:00 BP 149/67 06/11/21 08:00 Pulse Ox 83 L 06/11/21 09:56 Intake & Output 06/10/21 06/11/21 06/11/21 18:59 06:59 18:59 Intake Total 180 Output Total 1 4 Balance -1 -4 180 Intake: Oral 180 Output: Urine 1 4 Other: Voiding Method Bedside Commode Bedside Commode - Labs CBC & Chem 7: 06/11/21 07:48 06/11/21 07:48 Labs: Abnormal Lab Results - Last 24 Hours (Table) 06/10/21 06/10/21 06/10/21 Range/Units 12:07 16:53 20:34 WBC (3.8-10.6) k/uL Plt Count (150-450) k/uL Neutrophils # (1.3-7.7) k/uL Lymphocytes # (1.0-4.8) k/uL D-Dimer (<0.60) mg/L FEU Sodium (137-145) mmol/L Chloride (98-107) mmol/L BUN (7-17) mg/dL Glucose (74-99) mg/dL POC Glucose (mg/dL) 130 H 185 H 150 H (75-99) mg/dL Calcium (8.4-10.2) mg/dL AST (14-36) U/L ALT (4-34) U/L Lactate Dehydrogenase (313-618) U/L C-Reactive Protein (<1.0) mg/dL Albumin (3.5-5.0) g/dL 06/11/21 06/11/21 06/11/21 Range/Units 06:28 07:48 07:48 WBC 21.9 H (3.8-10.6) k/uL Plt Count 456 H (150-450) k/uL Neutrophils # 19.9 H (1.3-7.7) k/uL Lymphocytes # 0.9 L (1.0-4.8) k/uL D-Dimer (<0.60) mg/L FEU Sodium 127 L (137-145) mmol/L Chloride 93 L (98-107) mmol/L BUN 18 H (7-17) mg/dL Glucose 144 H (74-99) mg/dL POC Glucose (mg/dL) 130 H (75-99) mg/dL Calcium 8.3 L (8.4-10.2) mg/dL AST 97 H (14-36) U/L ALT 221 H (4-34) U/L Lactate Dehydrogenase 1726 H (313-618) U/L C-Reactive Protein 24.0 H (<1.0) mg/dL Albumin 2.7 L (3.5-5.0) g/dL 06/11/21 Range/Units 07:48 WBC (3.8-10.6) k/uL Plt Count (150-450) k/uL Neutrophils # (1.3-7.7) k/uL Lymphocytes # (1.0-4.8) k/uL D-Dimer 1.91 H (<0.60) mg/L FEU Sodium (137-145) mmol/L Chloride (98-107) mmol/L BUN (7-17) mg/dL Glucose (74-99) mg/dL POC Glucose (mg/dL) (75-99) mg/dL Calcium (8.4-10.2) mg/dL AST (14-36) U/L ALT (4-34) U/L Lactate Dehydrogenase (313-618) U/L C-Reactive Protein (<1.0) mg/dL Albumin (3.5-5.0) g/dL
[2021-06-11 11:47] LABS: Glucose,Whole Blood 150 mg/dL (75-99)
--- NOTE | 2021-06-11 15:40 | P.PN ---
Subjective Progress Note Date: 06/04/21 Principal diagnosis: Acute hypoxic and short failure secondary to COVID-19 pneumonia The patient is seen today 06/06/2021 in follow-up on the regular medical floor. She is currently sitting up in bed. Awake and alert in no acute distress. Her oxygen requirements however continued to climb. She is now on 10 L high flow nasal cannula to maintain O2 saturation in the high 80s low 90s. She is morbidly obese. She has been treated for COVID-19 pneumonia. She was outside the window for Remdesivir. She is not vaccinated. Her CAT scan yesterday ruled out pulmonary embolism. There is however extensive bilateral opacities consistent with COVID-19 pneumonia. She also was treated for an E. coli UTI and remains on IV Rocephin. She is not a candidate for Baricitinib. White count 18.0. Hemoglobin 13.5. Lymphocytes 0.32. D-dimer 1.08. Sodium 137. Potassium 4.2. Creatinine 0.52. AST 128. ALT 182. LDH 581. She remains on Lovenox, Decadron, vitamin supplements. 0.9 normal saline at 50 MLS per hour. The patient is seen today 06/07/2021 in follow-up on the regular medical floor. She is awake and alert in no acute distress. She is dyspneic with conversation. Dyspneic with minimal exertion. She is requiring 15 L high flow nasal cannula to maintain O2 saturations in the low 90s. She is afebrile. Hemodynamically stable. Blood cultures revealed no growth. Urine culture positive for E. coli. White count 15.7. Hemoglobin 12.0. Leukocytes 0.95. Sodium 136. Potassium 4.3. Creatinine 0.5. Glucose 1:15. AST 108. ALT 230. She is continued on ceftriaxone. She is continued on Lovenox, Decadron, vitamin supplements. She was outside the window for Remdesivir. UTI rules out Baricitinib. The patient is seen today 06/08/2021 in follow-up on the selective care unit. She is still requiring 15 L high flow nasal cannula plus a nonrebreather mask. She had been transferred here from the regular medical floor for closer observation. She is currently sitting up in a chair at the bedside. She states she is doing about the same compared to yesterday. O2 saturations in the low 90s. She's been afebrile. Hemodynamically stable. Urine culture is positive for E. coli. Sputum culture pending. Blood cultures reveal no growth to date. Blood glucose 158. She remains on Decadron, Lovenox, vitamin supplements. The patient is seen today 06/09/2021 in follow-up on the selective care unit. She rarely sitting up in a chair at the bedside. She is still requiring 15 L high flow nasal cannula +100% nonrebreather mask. chest x-ray continues to show bilateral multifocal and confluent opacities consistent with COVID-19 infection. She is getting somewhat discouraged regarding her slow progress. She is utilizing the incentive spirometer. She is up ambulating with assistance. She is continued on Decadron, Lovenox, vitamin supplements. urine culture is positive for E. coli. Blood cultures revealed no growth. Sputum culture revealed no growth. d-dimer 1.6. LDH 1550. C-reactive protein 21.4. Glucose 155. The patient is seen today 06/10/2021 in follow-up on the selective care unit. She is awake and alert. Mild respiratory distress. Sitting up in a chair at the bedside. Still requiring 15 L high flow nasal cannula +100% nonrebreather mask. We are trying to qualify her for Baricitinib however her liver enzymes have been elevated. Asymptomatic UTI and her antibiotics have been discontinued. She remains on Lovenox, Decadron, vitamin supplements. White count 18.8. Hemoglobin 13.0. Sodium 132. Potassium 4.9. Creatinine 0.51 glucose 110. AST 98. ALT 235. Reevaluated today on 06/11/2021, patient remains on the regular medical floor, she is on high flow oxygen. Patient is actually on BiPAP, and intermittently oirvo at 90% FiO2 and 60 L flow. O2 saturation is marginal. Surprisingly the patient states that she does not feel any worse today that she felt in the last few days. Tells me that she is basically about the same. is at bedside, and we discussed CODE STATUS and ventilatory support if needed patient clearly stated that she would not want to go on mechanical ventilation/no life- support machinery, she prefers to go peacefully and comfortably if her condition gets any worse. In the meantime the patient remains on treatment for her COVID- 19 infection as outlined below. I believe see count is 21.9 hemoglobin is 12.5 sodium is 127 and electrolytes are normal otherwise renal profile is normal. LDH is going up today is 1726 this is the highest it has been. C-reactive protein is trending up to 24. Objective - Vital Signs Vital signs: Vital Signs Temp 98.2 F 06/11/21 08:00 Pulse 116 H 06/11/21 12:00 Resp 44 H 06/11/21 12:00 BP 145/65 06/11/21 12:00 Pulse Ox 90 L 06/11/21 12:00 Intake & Output 06/10/21 06/11/21 06/11/21 18:59 06:59 18:59 Intake Total 180 Output Total 1 4 Balance -1 -4 180 Intake: Oral 180 Output: Urine 1 4 Other: Voiding Method Bedside Commode Bedside Commode Bedside Commode - Exam GENERAL EXAM: 65-year-old female on BiPAP. Seems to be comfortable, in no distress. HEAD: Normocephalic. EENT: [place], [place], nonicteric, no neck masses no JVD. CHEST: No chest wall deformity. LUNGS: Bilateral crackles persists. CVS: S1 and S2 normal with no audible murmur, regular rhythm. ABDOMEN: No hepatosplenomegaly, normal bowel sounds, no guarding or rigidity. SKIN: No rashes CENTRAL NERVOUS SYSTEM: No focal deficits, tone is normal in all 4 extremities. EXTREMITIES: There is no peripheral edema. No clubbing, no cyanosis. Peripheral pulses are intact. - Labs CBC & Chem 7: 06/11/21 07:48 06/11/21 07:48 Labs: Abnormal Lab Results - Last 24 Hours (Table) 06/10/21 06/10/21 06/11/21 Range/Units 16:53 20:34 06:28 WBC (3.8-10.6) k/uL Plt Count (150-450) k/uL Neutrophils # (1.3-7.7) k/uL Lymphocytes # (1.0-4.8) k/uL D-Dimer (<0.60) mg/L FEU Sodium (137-145) mmol/L Chloride (98-107) mmol/L BUN (7-17) mg/dL Glucose (74-99) mg/dL POC Glucose (mg/dL) 185 H 150 H 130 H (75-99) mg/dL Calcium (8.4-10.2) mg/dL AST (14-36) U/L ALT (4-34) U/L Lactate Dehydrogenase (313-618) U/L C-Reactive Protein (<1.0) mg/dL Albumin (3.5-5.0) g/dL 06/11/21 06/11/21 06/11/21 Range/Units 07:48 07:48 07:48 WBC 21.9 H (3.8-10.6) k/uL Plt Count 456 H (150-450) k/uL Neutrophils # 19.9 H (1.3-7.7) k/uL Lymphocytes # 0.9 L (1.0-4.8) k/uL D-Dimer 1.91 H (<0.60) mg/L FEU Sodium 127 L (137-145) mmol/L Chloride 93 L (98-107) mmol/L BUN 18 H (7-17) mg/dL Glucose 144 H (74-99) mg/dL POC Glucose (mg/dL) (75-99) mg/dL Calcium 8.3 L (8.4-10.2) mg/dL AST 97 H (14-36) U/L ALT 221 H (4-34) U/L Lactate Dehydrogenase 1726 H (313-618) U/L C-Reactive Protein 24.0 H (<1.0) mg/dL Albumin 2.7 L (3.5-5.0) g/dL 06/11/21 Range/Units 11:45 WBC (3.8-10.6) k/uL Plt Count (150-450) k/uL Neutrophils # (1.3-7.7) k/uL Lymphocytes # (1.0-4.8) k/uL D-Dimer (<0.60) mg/L FEU Sodium (137-145) mmol/L Chloride (98-107) mmol/L BUN (7-17) mg/dL Glucose (74-99) mg/dL POC Glucose (mg/dL) 150 H (75-99) mg/dL Calcium (8.4-10.2) mg/dL AST (14-36) U/L ALT (4-34) U/L Lactate Dehydrogenase (313-618) U/L C-Reactive Protein (<1.0) mg/dL Albumin (3.5-5.0) g/dL Assessment and Plan Assessment: Impression: Acute hypoxic refers failure secondary to COVID-19 pneumonia, patient was out of the window for Remdesivir she is not vaccinated patient was treated for UTI and later started on Baricitinib Acute COVID-19 pneumonia Morbid obesity, BMI of 49.6 Elevated inflammatory markers second to COVID-19 pneumonia Recent urinary tract infection secondary to E. coli treated with Rocephin and asymptomatic Recommendation: Continue oxygen and titrate accordingly Continue BiPAP and airvo, alternate if possible Continue Baricitinib Continue COVID-19 cocktail. Discussed CODE STATUS with the patient and her both clearly stated no intubation and DO NOT RESUSCITATE CODE STATUS. Will continue to follow prognosis is relatively poor and guarded. Time with Patient: Less than 30
[2021-06-11 16:50] LABS: Glucose,Whole Blood 206 mg/dL (75-99)
[2021-06-11 20:13] LABS: Glucose,Whole Blood 172 mg/dL (75-99)
[2021-06-11] MEDS: MORPHINE SULFATE 2 MG/ML SYRINGE IVP PRN (22:45)
--- NOTE | 2021-06-11 23:58 | PN ---
PROGRESS NOTE DATE OF SERVICE: 06/11/2021 REASON FOR FOLLOWUP: COVID-19 pneumonia. INTERVAL HISTORY: The patient is afebrile. The patient remains to be BiPAP dependent. The patient is hemodynamically stable. The patient denies having chest pain. No worsening cough or sputum production. No abdominal pain or diarrhea. PHYSICAL EXAMINATION: Blood pressure 136/77 with a pulse of 104, temperature 98.7. She is 90% on BiPAP. General description is a middle-aged female up in the bed in no distress. Respiratory system: Unlabored breathing, coarse breath sounds bilaterally. No wheeze. Heart S1, S2. Regular rate and rhythm. Abdomen soft, no tenderness. LABS: Hemoglobin is 12.5, white count 21.9, creatinine 0.52. DIAGNOSTIC IMPRESSION AND PLAN: Patient with acute respiratory failure secondary to severe to COVID-19 pneumonia. Patient is currently on dexamethasone, Lovenox, zinc and ascorbic acid to continue along with respiratory support. Prognosis remains to be guarded. at the bedside. Questions were answered. MMODL / IJN: [id number] /
[2021-06-12 06:11] LABS: Glucose,Whole Blood 115 mg/dL (75-99)
[2021-06-12 08:27] LABS: Basophils % (A) 0 %; Eosinophils % (A) 0 %; HCT 38.3 % (34.0-46.0); HGB 12.3 gm/dL (11.4-16.0); Lymphocytes # (A) 0.6 k/uL (1.0-4.8); Lymphocytes % (A) 2 %; MCH 30.6 pg (25.0-35.0); MCHC 32.1 g/dL (31.0-37.0); MCV 95.3 fL (80.0-100.0); Mean Platelet Volume 7.6; Monocytes % (A) 3 %; Neutrophils # (A) 30.5 k/uL (1.3-7.7); Neutrophils % (A) 94 %; Platelet Count 442 k/uL (150-450); RBC 4.02 m/uL (3.80-5.40); RDW 12.9 % (11.5-15.5); WBC 32.3 k/uL (3.8-10.6)
[2021-06-12] MEDS: ALBUTEROL HFA INHALER INHALATION SCH ×4 (08:31→20:35)
[2021-06-12 08:44] LABS: ALT 151 U/L (4-34); AST 76 U/L (14-36); African American GFR (CKD) >90 (>60 ml/min/1.73 sqM); Albumin 2.5 g/dL (3.5-5.0); Alkaline Phosphatase 155 U/L (38-126); Anion Gap 8 mmol/L; Blood Urea Nitrogen 18 mg/dL (7-17); Calcium 7.6 mg/dL (8.4-10.2); Carbon Dioxide 24 mmol/L (22-30); Chloride 93 mmol/L (98-107); Glucose 112 mg/dL (74-99); Non-African American GFR(CKD) >90 (>60 ml/min/1.73 sqM); Potassium 5.3 mmol/L (3.5-5.1); Sodium 125 mmol/L (137-145); Total Bilirubin 1.4 mg/dL (0.2-1.3); Total Protein 6.2 g/dL (6.3-8.2)
[2021-06-12] MEDS: SODIUM CHLORIDE 0.9% 1,000 ML IV SCH ×3 (09:46→17:47)
[2021-06-12] MEDS: INSULIN ASPART (NovoLOG) 100 UNIT/ML VIAL SQ SCH ×4 (09:47→20:19)
[2021-06-12] MEDS: ENOXAPARIN 40 MG/0.4 ML SYRINGE SQ SCH ×2 (11:01→20:19)
[2021-06-12] MEDS: CHOLECALCIFEROL 25 MCG (1000 IU) TABLET PO SCH (11:01)
[2021-06-12] MEDS: ASCORBIC ACID 500 MG TAB PO SCH ×2 (11:01→21:02)
[2021-06-12] MEDS: CYANOCOBALAMIN 500 MCG TAB PO SCH (11:01)
[2021-06-12] MEDS: ZINC SULFATE 220 MG CAP PO SCH (11:01)
[2021-06-12] MEDS: MULTIVITAMINS, THERA 1 EACH TAB PO SCH (11:01)
[2021-06-12] MEDS: lisinopriL 5 MG TAB PO SCH (11:02)
[2021-06-12] MEDS: dexAMETHasone 2 MG TAB PO SCH (11:02)
[2021-06-12] MEDS: FAMOTIDINE 20 MG TAB PO SCH ×2 (11:02→21:02)
[2021-06-12 11:57] LABS: Glucose,Whole Blood 115 mg/dL (75-99)
--- NOTE | 2021-06-12 12:40 | P.PN ---
Subjective Progress Note Date: 06/12/21 Principal diagnosis: Dyspnea, hypoxia On 06/12/2021 patient seen in follow-up on selective care unit, she is currently on BiPAP support with pressures of 14 and 5 and FiO2 of 100%, and her pulse ox is marginal only at 82-86%. She is 5 tachypneic, she has a big air leak, her mask was adjusted, her pressures were increased to 16 any and FiO2 100%, pulse ox slightly improved however still marginal at 84-86%. Patient wakes up, she thinks her breathing is better, lung sounds are diminished, with scattered crackles, no wheezing, no complaint of chest discomfort. Occasional c ough, no phlegm production, today's labs have been reviewed, her white count is up to 32.3, hemoglobin is 12.3, serum sodium is 125, potassium is 5.3, chloride is 93, B1 is taking creatinine 0.49. AST and ALT slightly improved and her down to 76 and 151 respectively, alk phos is 155 on today's labs, her LDH was increased to 1726 on yesterday status, CRP was 24. Patient continues on Baricitinib, Decadron 6 mg daily, she is on IV fluids at 100 ML per hour is on Lovenox 40 mg twice daily dosing. She has completed her course of antibiotics for urinary tract infection, urine culture back on 06/04/2021 showed E. coli. Last WAS 0.11. Objective - Vital Signs Vital signs: Vital Signs Temp 97.8 F 06/12/21 08:00 Pulse 122 H 06/12/21 08:00 Resp 41 H 06/12/21 08:00 BP 137/78 06/12/21 08:00 Pulse Ox 84 L 06/12/21 08:00 Intake & Output 06/11/21 06/12/21 06/12/21 18:59 06:59 18:59 Intake Total 780 200 Output Total 650 Balance 780 -650 200 Intake: IV 600 Sodium Chloride 0.9% 1, 600 000 ml @ 100 mls/hr IV . Q10H [facility] Rx#:[id number] Intake, IV Titration 200 Amount Sodium Chloride 0.9% 1, 200 000 ml @ 100 mls/hr IV . Q10H [facility] Rx#:[id number] Oral 180 0 Output: Urine 650 Other: Voiding Method Bedside Commode Bedside Commode Bedside Commode - Exam GENERAL EXAM: Alert, pleasant, tachypnea, 65-year-old white female on BiPAP support with pressures of 14/5 and FiO2 of 100%, and pulse ox is 82-84% comfortable in no apparent distress. HEAD: Normocephalic/atraumatic. EYES: Normal reaction of pupils, equal size. Conjunctiva pink, sclera white. NOSE: Clear with pink turbinates. THROAT: No erythema or exudates. NECK: No masses, no JVD, no thyroid enlargement, no adenopathy. CHEST: No chest wall deformity. Symmetrical expansion. LUNGS: Equal air entry with no crackles, wheeze, rhonchi or dullness. CVS: Regular rate and rhythm, normal S1 and S2, no gallops, no murmurs, no rubs ABDOMEN: Soft, nontender. No hepatosplenomegaly, normal bowel sounds, no guarding or rigidity. EXTREMITIES: No clubbing, no edema, no cyanosis, 2+ pulses and upper and lower extremities. MUSCULOSKELETAL: Muscle strength and tone normal. SPINE: No scoliosis or deformity SKIN: No rashes CENTRAL NERVOUS SYSTEM: Alert and oriented -3. No focal deficits, tone is normal in all 4 extremities. PSYCHIATRIC: Alert and oriented -3. Appropriate affect. Intact judgment and insight. - Labs CBC & Chem 7: 06/12/21 07:51 06/12/21 07:51 Labs: Abnormal Lab Results - Last 24 Hours (Table) 06/11/21 06/11/21 06/12/21 Range/Units 16:49 20:12 06:10 WBC (3.8-10.6) k/uL Neutrophils # (1.3-7.7) k/uL Lymphocytes # (1.0-4.8) k/uL Sodium (137-145) mmol/L Potassium (3.5-5.1) mmol/L Chloride (98-107) mmol/L BUN (7-17) mg/dL Creatinine (0.52-1.04) mg/dL Glucose (74-99) mg/dL POC Glucose (mg/dL) 206 H 172 H 115 H (75-99) mg/dL Calcium (8.4-10.2) mg/dL Total Bilirubin (0.2-1.3) mg/dL AST (14-36) U/L ALT (4-34) U/L Alkaline Phosphatase (38-126) U/L Total Protein (6.3-8.2) g/dL Albumin (3.5-5.0) g/dL 06/12/21 06/12/21 06/12/21 Range/Units 07:51 07:51 11:54 WBC 32.3 H (3.8-10.6) k/uL Neutrophils # 30.5 H (1.3-7.7) k/uL Lymphocytes # 0.6 L (1.0-4.8) k/uL Sodium 125 L (137-145) mmol/L Potassium 5.3 H (3.5-5.1) mmol/L Chloride 93 L (98-107) mmol/L BUN 18 H (7-17) mg/dL Creatinine 0.49 L (0.52-1.04) mg/dL Glucose 112 H (74-99) mg/dL POC Glucose (mg/dL) 115 H (75-99) mg/dL Calcium 7.6 L (8.4-10.2) mg/dL Total Bilirubin 1.4 H (0.2-1.3) mg/dL AST 76 H (14-36) U/L ALT 151 H (4-34) U/L Alkaline Phosphatase 155 H (38-126) U/L Total Protein 6.2 L (6.3-8.2) g/dL Albumin 2.5 L (3.5-5.0) g/dL Assessment and Plan Plan: Assessment: #1. Acute hypoxic respiratory failure related to acute COVID-19 pneumonia, patient was outside the window for Remdesivir, she is not vaccinated. Currently her hypoxia has progressed, and patient was started on Baricitinib on 06/12/2021. Currently on BiPAP support with pressures of 14 and 5 and FiO2 of 100%. EKG angiogram the chest was negative for pulmonary embolism. There was extensive bilateral patchy densities consistent with COVID-19 pneumonia #2. Acute urinary tract infection secondary to E. coli, patient received Rocephin for 4 days, however patient has increasing leukocytosis, rule out possibility of sepsis. #3. Transaminitis secondary to COVID-19 infection, improved #4. Morbid obesity with BMI 49.6 kg/m #5. Hyponatremia, possibly related to hypovolemia, patient remains on 0.9 normal saline at a rate of 100 ML per hour. Plan: Patient continues on BiPAP support Oxygenation is poor Decreased BiPAP pressures to 16 and 8 and FiO2 of 100%, and patient is alternat ing with Airvo We will recheck patient's urinalysis, blood cultures, to rule out possibility of sepsis Follow-up chest x-ray today Lactic acid We may have to place the Baricitinib on hold for suspicion of underlying sepsis We'll continue to follow her clinical course closely Continue current dose Decadron and Lovenox Follow-up d-dimer and inflammatory markers tomorrow Overall prognosis is poor Patient and her decided on DO NOT RESUSCITATE CODE STATUS We will continue treating supportively I performed a history & physical examination of the patient and discussed their management with my nurse practitioner, Ana Johnson. I reviewed the nurse practitioner's note and agree with the documented findings and plan of care. Lung sounds are positive for dim breath sounds throughout the lung godwin. The findings and the impression was discussed with the patient. I attest to the documentation by the nurse practitioner. Time with Patient: Less than 30
--- NOTE | 2021-06-12 12:59 | XR ---
EXAMINATION TYPE: XR chest 1V portable DATE OF EXAM: 06/12/2021 COMPARISON: 06/09/2021 INDICATION: Atypical pneumonia TECHNIQUE: Single frontal view of the chest is obtained. FINDINGS: The heart size is normal. The pulmonary vasculature is normal. Diffuse consolidations are present bilaterally. Air bronchograms are evident. Findings are similar to comparison. IMPRESSION: 1. Diffuse increased lung markings can be compatible with atypical pneumonia.
[2021-06-12] MEDS: MORPHINE SULFATE 2 MG/ML SYRINGE IVP PRN ×2 (13:12→20:19)
[2021-06-12] MEDS ORDERED: FUROSEMIDE 10 MG/ML 4 ML VIAL IV STA (13:30)
[2021-06-12] MEDS ORDERED: BARICITINIB 2 MG TABLET PO SCH (14:00)
--- NOTE | 2021-06-12 15:52 | P.PN ---
Subjective Progress Note Date: 06/12/21 06/12/2021 Patient evaluated today sitting up in the chair, she is on a BiPAP with an FiO2 of 100%, her oxygen saturations are marginal at 88%. Blood pressure, 140/65, heart rate 117, afebrile. Lactic acid today 1.4, BNP 140. WBC count today increased to 32.3., Sodium was 125 today and potassium 5.3, we did give a one time dose of IV lasix and stopped the fluids and will repeat the sodium tomorrow. Other labs include AST of 76, ALT of 151, Alk Phos of 155, Albumin 2.5. Patient is quite tachypneic on the BiPAP and has a hard time catching her breath. Chest xray today shows diffuse increased lung markings can be compatible with atypical pneumonia. Xray reviewed by attending. Patient is being followed closely by pulmonary and ID services, her prognosis remains guarded, and she is currently a Do Not Resuscitate. She continues on Zinc, lovenox, baricitinib and Decadron were discontinued; patients switched to IV Solumedrol, and started on IV cefepime today by pulmonary team. ROS Constitutional: Denied any fever, reports fatigue Cardio vascular: denied any chest pain, palpitations Gastrointestinal denied any nausea vomiting Pulmonary: Reports SOB at rest, non productive cough Neurologic denied any new focal deficits All inpatient medications were reviewed and appropriate changes in these medications as dictated in the interval history and assessment and plan. PHYSICAL EXAMINATION: GENERAL: The patient is alert and oriented x3, appears in respiratory distress despite 100% BiPAP support, Well developed, well nourished. Obese. HEENT: Pupils are round and equally reacting to light. EOMI. No scleral icterus. No conjunctival pallor. Normocephalic, atraumatic. No pharyngeal erythema. No thyromegaly. CARDIOVASCULAR: S1 and S2 present. No murmurs, rubs, or gallops. tachycardic. PULMONARY: Diminished throughout, scattered crackles ABDOMEN: Soft, nontender, nondistended, normoactive bowel sounds. No palpable organomegaly. MUSCULOSKELETAL: No joint swelling or deformity. EXTREMITIES: No cyanosis, clubbing, or pedal edema. NEUROLOGICAL: Gross neurological examination did not reveal any focal deficits. SKIN: No rashes. Assessment and plan Assessment Acute hypoxic respiratory failures secondary to COVID 19 requiring 100% BiPAP with marginal oxygen saturations, which oxygen demands have steadily increased this admission. Acute COVID 19 pneumonia UTI with E. Coli present on admission, finished course of antibiotic therapy with rocephin Leukocytosis secondary to above, continues to increase despite antibiotic therapy, could be steroid affect, decadron was switched to solu-medrol today. Lactic acid normal today at 1.4, possibility of sepsis. Additional bloodwork ordered today from pulmonary team. Elevated procalcitonin Hypertension Elevated inflammatory markers of COVID-19 Transaminitis secondary to COVID-19 Elevated DD no evidence of pulmonary embolism Hyperglycemia Obesity History of cholecystectomy GI Prophylaxis: Pepcid DVT Prophylaxis: Lovenox DO NOT RESUSCITATE Plan Continue IV antibiotics Continue Lovenox, vitamins DC decadron, added solu-medrol Repeat urinalysis, blood culture, and procalcitonin have been ordered Continue novolog Continue all other supportive care Encourage IS, ambulation Prognosis guarded Repeat labs and inflammatory markers in the AM Objective - Vital Signs Vital signs: Vital Signs Temp 97.8 F 06/12/21 08:00 Pulse 122 H 06/12/21 08:00 Resp 41 H 06/12/21 08:00 BP 137/78 06/12/21 08:00 Pulse Ox 84 L 06/12/21 08:00 Intake & Output 06/11/21 06/12/21 06/12/21 18:59 06:59 18:59 Intake Total 780 0 Output Total 650 Balance 780 -650 0 Intake: IV 600 Sodium Chloride 0.9% 1, 600 000 ml @ 100 mls/hr IV . Q10H [facility] Rx#:[id number] Oral 180 0 Output: Urine 650 Other: Voiding Method Bedside Commode Bedside Commode - Labs CBC & Chem 7: 06/12/21 07:51 06/12/21 07:51 Labs: Abnormal Lab Results - Last 24 Hours (Table) 06/11/21 06/11/21 06/11/21 Range/Units 11:45 16:49 20:12 WBC (3.8-10.6) k/uL Neutrophils # (1.3-7.7) k/uL Lymphocytes # (1.0-4.8) k/uL Sodium (137-145) mmol/L Potassium (3.5-5.1) mmol/L Chloride (98-107) mmol/L BUN (7-17) mg/dL Creatinine (0.52-1.04) mg/dL Glucose (74-99) mg/dL POC Glucose (mg/dL) 150 H 206 H 172 H (75-99) mg/dL Calcium (8.4-10.2) mg/dL Total Bilirubin (0.2-1.3) mg/dL AST (14-36) U/L ALT (4-34) U/L Alkaline Phosphatase (38-126) U/L Total Protein (6.3-8.2) g/dL Albumin (3.5-5.0) g/dL 06/12/21 06/12/21 06/12/21 Range/Units 06:10 07:51 07:51 WBC 32.3 H (3.8-10.6) k/uL Neutrophils # 30.5 H (1.3-7.7) k/uL Lymphocytes # 0.6 L (1.0-4.8) k/uL Sodium 125 L (137-145) mmol/L Potassium 5.3 H (3.5-5.1) mmol/L Chloride 93 L (98-107) mmol/L BUN 18 H (7-17) mg/dL Creatinine 0.49 L (0.52-1.04) mg/dL Glucose 112 H (74-99) mg/dL POC Glucose (mg/dL) 115 H (75-99) mg/dL Calcium 7.6 L (8.4-10.2) mg/dL Total Bilirubin 1.4 H (0.2-1.3) mg/dL AST 76 H (14-36) U/L ALT 151 H (4-34) U/L Alkaline Phosphatase 155 H (38-126) U/L Total Protein 6.2 L (6.3-8.2) g/dL Albumin 2.5 L (3.5-5.0) g/dL
[2021-06-12 17:14] LABS: Glucose,Whole Blood 161 mg/dL (75-99)
--- NOTE | 2021-06-12 17:29 | PN ---
PROGRESS NOTE DATE OF SERVICE: 06/12/2021 REASON FOR FOLLOWUP: COVID-19 pneumonia. INTERVAL HISTORY: Patient is afebrile. The patient is currently lethargic. Has received a dose of warfarin. Patient is hemodynamically stable. Remains to be on 100% FiO2 and BiPAP. Unable to provide any history. No diarrhea. No other changes have been reported by the nursing staff or the daughter at the bedside. PHYSICAL EXAMINATION: Blood pressure 140/55, pulse of 117, temperature 97.8. She is 88% on BiPAP. General description is a middle-aged female lying in bed in no distress. Respiratory system: Unlabored breathing, decreased intensity of breath sounds. No wheeze. Heart S1, S2. Regular rate and rhythm. Abdomen: Soft. No tenderness. LABS: Hemoglobin is 12.8, white count 32.3, creatinine 0.49. Chest x-ray diffuse increased lung markings compatible with atypical pneumonia. ASSESSMENT: Patient with acute respiratory failure secondary to the Covid 19 pneumonia, possibly progressing to ARDS. This patient has been switched over to Solu-Medrol to continue Lovenox, zinc and ascorbic acid. Overall prognosis remains to be guarded. Daughter has multiple questions and was asking for receiving plasma and other treatment. Those have been answered in layman's terms. MMODL / IJN: [id number] /
[2021-06-12 17:39] LABS: Amorphous Sediment,Urine Rare /hpf; Appearance,Urine Cloudy (Clear); Bacteria,Urine Occasional /hpf; Bilirubin,Urine Negative (Negative); Blood,Urine Negative (Negative); Color,Urine Yellow; Glucose,Urine (UA) Negative (Negative); Ketones,Urine 1+ (Negative); Leukocyte Esterase,Urine Negative (Negative); Mucus,Urine Rare /hpf; Nitrite,Urine Negative (Negative); PH, Urine 6.5 (5.0-8.0); Protein,Urine 1+ (Negative); RBC,Urine 21 /hpf (0-5); Specific Gravity,Urine 1.018 (1.001-1.035); Squamous Epithelial Cell,Urine 1 /hpf (0-4); WBC,Urine 2 /hpf (0-5)
[2021-06-12] MEDS: CEFEPIME 2 GM in SODIUM CHLORIDE 0.9% 100 ML IVPB SCH (17:47)
[2021-06-12] MEDS: methylPREDNISolone SOD SUCCI 125 MG/2 ML VIAL IV SCH ×2 (17:47→20:19)
[2021-06-12 19:59] LABS: Glucose,Whole Blood 144 mg/dL (75-99)
[2021-06-12] MEDS ORDERED: dexAMETHasone 2 MG TAB PO SCH (21:00)
[2021-06-13] MEDS: CEFEPIME 2 GM in SODIUM CHLORIDE 0.9% 100 ML IVPB SCH ×2 (02:38→13:55)
[2021-06-13] MEDS: methylPREDNISolone SOD SUCCI 125 MG/2 ML VIAL IV SCH ×4 (02:38→20:58)
[2021-06-13] MEDS: MORPHINE SULFATE 2 MG/ML SYRINGE IVP PRN ×5 (04:32→20:57)
[2021-06-13 06:12] LABS: Glucose,Whole Blood 128 mg/dL (75-99)
[2021-06-13] MEDS: INSULIN ASPART (NovoLOG) 100 UNIT/ML VIAL SQ SCH ×4 (06:30→22:11)
[2021-06-13] MEDS: ALBUTEROL HFA INHALER INHALATION SCH ×4 (09:36→20:50)
[2021-06-13 09:38] LABS: HCT 38.2 % (34.0-46.0); HGB 11.9 gm/dL (11.4-16.0); Hypochromasia Slight; MCH 29.6 pg (25.0-35.0); MCHC 31.1 g/dL (31.0-37.0); MCV 95.1 fL (80.0-100.0); Mean Platelet Volume 8.1; Platelet Count 398 k/uL (150-450); RBC 4.02 m/uL (3.80-5.40); WBC 27.3 k/uL (3.8-10.6)
[2021-06-13 09:52] LABS: ALT 109 U/L (4-34); AST 59 U/L (14-36); African American GFR (CKD) >90 (>60 ml/min/1.73 sqM); Albumin 2.5 g/dL (3.5-5.0); Alkaline Phosphatase 154 U/L (38-126); Blood Urea Nitrogen 22 mg/dL (7-17); Calcium 8.5 mg/dL (8.4-10.2); Carbon Dioxide 31 mmol/L (22-30); Glucose 157 mg/dL (74-99); LDH 2023 U/L (313-618); Non-African American GFR(CKD) >90 (>60 ml/min/1.73 sqM); Sodium 126 mmol/L (137-145); Total Bilirubin 0.6 mg/dL (0.2-1.3); Total Protein 6.2 g/dL (6.3-8.2)
[2021-06-13] MEDS: CHOLECALCIFEROL 25 MCG (1000 IU) TABLET PO SCH (10:35)
[2021-06-13] MEDS: CYANOCOBALAMIN 500 MCG TAB PO SCH (10:35)
[2021-06-13] MEDS: ASCORBIC ACID 500 MG TAB PO SCH ×2 (10:35→20:38)
[2021-06-13] MEDS: ENOXAPARIN 40 MG/0.4 ML SYRINGE SQ SCH ×2 (10:35→20:58)
[2021-06-13] MEDS: MULTIVITAMINS, THERA 1 EACH TAB PO SCH (10:36)
[2021-06-13] MEDS: ZINC SULFATE 220 MG CAP PO SCH (10:36)
[2021-06-13] MEDS: lisinopriL 5 MG TAB PO SCH (10:36)
[2021-06-13] MEDS: FAMOTIDINE 20 MG TAB PO SCH ×2 (10:36→20:38)
[2021-06-13 11:53] LABS: ABG Base Excess 6.3 mmol/L; ABG HCO3 31 mmol/L (21-25); ABG PCO2 53 mmHg (35-45); ABG PH 7.38 (7.35-7.45); ABG TCO2 33 mmol/L (19-24); Allen Test Performed? Yes
[2021-06-13 11:54] LABS: ABG PO2 55 mmHg (83-108)
[2021-06-13 12:11] LABS: Glucose,Whole Blood 140 mg/dL (75-99)
[2021-06-13 12:46] LABS: C Reactive Protein 37.4 mg/dL (<1.0)
[2021-06-13 12:50] LABS: Anion Gap 4 mmol/L; Chloride 91 mmol/L (98-107)
--- NOTE | 2021-06-13 13:46 | P.PN ---
Subjective Progress Note Date: 06/13/21 Principal diagnosis: Dyspnea, hypoxia On 06/12/2021 patient seen in follow-up on selective care unit, she is currently on BiPAP support with pressures of 14 and 5 and FiO2 of 100%, and her pulse ox is marginal only at 82-86%. She is 5 tachypneic, she has a big air leak, her mask was adjusted, her pressures were increased to 16 any and FiO2 100%, pulse ox slightly improved however still marginal at 84-86%. Patient wakes up, she thinks her breathing is better, lung sounds are diminished, with scattered crackles, no wheezing, no complaint of chest discomfort. Occasional c ough, no phlegm production, today's labs have been reviewed, her white count is up to 32.3, hemoglobin is 12.3, serum sodium is 125, potassium is 5.3, chloride is 93, B1 is taking creatinine 0.49. AST and ALT slightly improved and her down to 76 and 151 respectively, alk phos is 155 on today's labs, her LDH was increased to 1726 on yesterday status, CRP was 24. Patient continues on Baricitinib, Decadron 6 mg daily, she is on IV fluids at 100 ML per hour is on Lovenox 40 mg twice daily dosing. She has completed her course of antibiotics for urinary tract infection, urine culture back on 06/04/2021 showed E. coli. Last WAS 0.11. On 06/05/2021 patient seen in follow-up on selective care unit, she remains on BiPAP, currently with pressures of 16 and 8 and FiO2 100%, and her O2 saturations are marginal at 84-88%. Patient still tachypneic, her respiratory rate is in the upper 30s, but she looks to be a bit more comfortable, she states the morphine is helping her with anxiety, and breathlessness. She is afebrile, hemodynamically she is stable, blood cultures have been sent, urinalysis was rechecked showing 1+ protein, 1+ ketones, but no clear evidence of infection. Pro-calcitonin level came back elevated at 0.53, Baricitinib was discontinued in view of suspected sepsis, and patient was placed on cefepime. On today's labs her white blood cell count is slightly improved, and is down to 27.3, hemoglobin is 11.9, serum sodium remains low at 126, potassium is 5.0, chloride is 91, CO2 is 31, BUN is 22, creatinine 0.49, her inflammatory markers have trended up and LDH is up to 202, CRP is up to 37.4. Her proBNP came back normal at 140, lactic acid was within normal limits at 1.4. Sputum culture previously had shown no growth, patient is not bringing up any phlegm. Lung sounds are diminished, positive for inspiratory crackles, her last chest x-ray shows diffuse increased lung markings compatible with atypical pneumonia. Patient received a dose of IV Lasix, and she has produced 1.1 L in urine output in the last 24 hours. Patient's daughter is at the bedside, she was updated on her mother's condition, the patient is adamant about being a DO NOT RESUSCITATE, she is agreeable to supportive treatment. The patient's daughter is concerned about patient's nutrition. The patient has not been able to take much by mouth related to be an BiPAP dependent. She is currently on Lovenox 40 mg twice daily for DVT prophylaxis, she is on IV Solu-Medrol 60 mg every 6 hours. Objective - Vital Signs Vital signs: Vital Signs Temp 96.4 F L 06/13/21 08:00 Pulse 103 H 06/13/21 08:00 Resp 38 H 06/13/21 08:00 BP 143/63 06/13/21 08:00 Pulse Ox 88 L 06/13/21 08:00 Intake & Output 06/12/21 06/13/21 06/13/21 18:59 06:59 18:59 Intake Total 800 100 Output Total 600 500 Balance 200 -500 100 Intake: Intake, IV Titration 800 100 Amount Cefepime 2 gm In Sodium 100 Chloride 0.9% 100 ml @ 25 mls/hr IVPB Q12H [facility] Rx# :[id number] Sodium Chloride 0.9% 1, 700 000 ml @ 100 mls/hr IV . Q10H [facility] Rx#:[id number] Sodium Chloride 0.9% 1, 100 000 ml @ 50 mls/hr IV . Q20H [facility] Rx#:[id number] Oral 0 0 Output: Urine 600 500 Other: Voiding Method Bedside Commode Bedside Commode Bedside Commode - Exam GENERAL EXAM: Alert, pleasant, 65-year-old white female on BiPAP support with pressures of 16/8 and FiO2 of 100%, and pulse ox is 84-88% tachypneic, dyspneic, but appears to be more comfortable on today's exam, HEAD: Normocephalic/atraumatic. EYES: Normal reaction of pupils, equal size. Conjunctiva pink, sclera white. NOSE: Clear with pink turbinates. THROAT: No erythema or exudates. NECK: No masses, no JVD, no thyroid enlargement, no adenopathy. CHEST: No chest wall deformity. Symmetrical expansion. LUNGS: Equal air entry with diffuse inspiratory crackles at bilateral mid to lower lungs CVS: Regular rate and rhythm, normal S1 and S2, no gallops, no murmurs, no rubs ABDOMEN: Soft, nontender. No hepatosplenomegaly, normal bowel sounds, no guarding or rigidity. EXTREMITIES: No clubbing, no edema, no cyanosis, 2+ pulses and upper and lower extremities. MUSCULOSKELETAL: Muscle strength and tone normal. SPINE: No scoliosis or deformity SKIN: No rashes CENTRAL NERVOUS SYSTEM: Alert and oriented -3. No focal deficits, tone is normal in all 4 extremities. PSYCHIATRIC: Alert and oriented -3. Appropriate affect. Intact judgment and insight. - Labs CBC & Chem 7: 06/13/21 08:49 06/13/21 08:49 Labs: Abnormal Lab Results - Last 24 Hours (Table) 06/12/21 06/12/21 06/12/21 Range/Units 13:22 16:54 17:13 WBC (3.8-10.6) k/uL ABG pCO2 (35-45) mmHg ABG pO2 (83-108) mmHg ABG HCO3 (21-25) mmol/L ABG Total CO2 (19-24) mmol/L ABG O2 Saturation (94-97) % Sodium (137-145) mmol/L Chloride (98-107) mmol/L Carbon Dioxide (22-30) mmol/L BUN (7-17) mg/dL Creatinine (0.52-1.04) mg/dL Glucose (74-99) mg/dL POC Glucose (mg/dL) 161 H (75-99) mg/dL AST (14-36) U/L ALT (4-34) U/L Alkaline Phosphatase (38-126) U/L Lactate Dehydrogenase (313-618) U/L C-Reactive Protein (<1.0) mg/dL Total Protein (6.3-8.2) g/dL Albumin (3.5-5.0) g/dL Procalcitonin 0.53 H (0.02-0.09) ng/mL Urine Appearance Cloudy H (Clear) Urine Protein 1+ H (Negative) Urine Ketones 1+ H (Negative) Urine RBC 21 H (0-5) /hpf Amorphous Sediment Rare H (None) /hpf Urine Bacteria Occasional H (None) /hpf Urine Mucus Rare H (None) /hpf 06/12/21 06/13/21 06/13/21 Range/Units 19:56 06:10 08:49 WBC 27.3 H (3.8-10.6) k/uL ABG pCO2 (35-45) mmHg ABG pO2 (83-108) mmHg ABG HCO3 (21-25) mmol/L ABG Total CO2 (19-24) mmol/L ABG O2 Saturation (94-97) % Sodium (137-145) mmol/L Chloride (98-107) mmol/L Carbon Dioxide (22-30) mmol/L BUN (7-17) mg/dL Creatinine (0.52-1.04) mg/dL Glucose (74-99) mg/dL POC Glucose (mg/dL) 144 H 128 H (75-99) mg/dL AST (14-36) U/L ALT (4-34) U/L Alkaline Phosphatase (38-126) U/L Lactate Dehydrogenase (313-618) U/L C-Reactive Protein (<1.0) mg/dL Total Protein (6.3-8.2) g/dL Albumin (3.5-5.0) g/dL Procalcitonin (0.02-0.09) ng/mL Urine Appearance (Clear) Urine Protein (Negative) Urine Ketones (Negative) Urine RBC (0-5) /hpf Amorphous Sediment (None) /hpf Urine Bacteria (None) /hpf Urine Mucus (None) /hpf 06/13/21 06/13/21 06/13/21 Range/Units 08:49 11:45 12:07 WBC (3.8-10.6) k/uL ABG pCO2 53 H (35-45) mmHg ABG pO2 55 L* (83-108) mmHg ABG HCO3 31 H (21-25) mmol/L ABG Total CO2 33 H (19-24) mmol/L ABG O2 Saturation 89.0 L (94-97) % Sodium 126 L (137-145) mmol/L Chloride 91 L (98-107) mmol/L Carbon Dioxide 31 H (22-30) mmol/L BUN 22 H (7-17) mg/dL Creatinine 0.49 L (0.52-1.04) mg/dL Glucose 157 H (74-99) mg/dL POC Glucose (mg/dL) 140 H (75-99) mg/dL AST 59 H (14-36) U/L ALT 109 H (4-34) U/L Alkaline Phosphatase 154 H (38-126) U/L Lactate Dehydrogenase 2023 H (313-618) U/L C-Reactive Protein 37.4 H (<1.0) mg/dL Total Protein 6.2 L (6.3-8.2) g/dL Albumin 2.5 L (3.5-5.0) g/dL Procalcitonin (0.02-0.09) ng/mL Urine Appearance (Clear) Urine Protein (Negative) Urine Ketones (Negative) Urine RBC (0-5) /hpf Amorphous Sediment (None) /hpf Urine Bacteria (None) /hpf Urine Mucus (None) /hpf Assessment and Plan Plan: Assessment: #1. Acute hypoxic respiratory failure related to acute COVID-19 pneumonia and suspected sepsis. patient was outside the window for Remdesivir, she is not vaccinated. Currently her hypoxia has progressed, and patient was started on Baricitinib on 06/12/2021. Currently on BiPAP support with pressures of 16 and 8 and FiO2 of 100%. EKG angiogram the chest was negative for pulmonary embolism. There was extensive bilateral patchy densities consistent with COVID-19 pneumonia #2. Suspected superinfection, in view of acute leukocytosis, and increased pro-calcitonin level, patient has been covered with cefepime, sepsis workup has been ordered #3. Acute urinary tract infection secondary to E. coli, patient has completed 4 days of Rocephin, follow up urinalysis showed no clear evidence of urinary tract infection #4. Transaminitis secondary to COVID-19 infection, improved #5. Morbid obesity with BMI 49.6 kg/m #6. Hyponatremia, suspected to be due to hypovolemia, hold diuresis right now, we will increase the IV fluids to 0.9 at 50 ML per hour #7. Elevated d-dimer, with no evidence of pulmonary embolism on CT angiogram and no DVT on lower extremity Dopplers Plan: Patient continues on BiPAP support, at 16/8 and FiO2 100% Oxygenation remains poor, patient is BiPAP dependent at this time Continue with empiric antibiotics in the form of cefepime Baricitinib remains on hold Continue with current dose Decadron and Lovenox Lactic acid was within normal limits, proBNP was within normal limits Blood gas has been reviewed Hold diuretics Suspect hypovolemic hyponatremia We'll give gentle hydration with 0.9 normal saline at a rate of 50 ML per hour Patient's daughter is at the bedside, she is concerned about her mother's nutrition We will consider possible PICC line placement and TPN if were unable to give the patient a nutrition by mouth in the next 24-48 hours Overall prognosis is extremely guarded and poor We'll continue following her clinical course and make recommendations accordingly I performed a history & physical examination of the patient and discussed their management with my nurse practitioner, Ana Johnson. I reviewed the nurse practitioner's note and agree with the documented findings and plan of care. Lung sounds are positive for dim breath sounds throughout the lung godwin. The findings and the impression was discussed with the patient. I attest to the documentation by the nurse practitioner. Time with Patient: Less than 30
[2021-06-13] MEDS: SODIUM CHLORIDE 0.9% 1,000 ML IV SCH (13:56)
[2021-06-13] MEDS ORDERED: SODIUM CHLORIDE 0.9% 1,000 ML IV ONE (14:35)
[2021-06-13 16:58] LABS: Glucose,Whole Blood 169 mg/dL (75-99)
--- NOTE | 2021-06-13 19:39 | P.PN ---
Subjective Progress Note Date: 06/13/21 06/12/2021 Patient evaluated today sitting up in the chair, she is on a BiPAP with an FiO2 of 100%, her oxygen saturations are marginal at 88%. Blood pressure, 140/65, heart rate 117, afebrile. Lactic acid today 1.4, BNP 140. WBC count today increased to 32.3., Sodium was 125 today and potassium 5.3, we did give a one time dose of IV lasix and stopped the fluids and will repeat the sodium tomorrow. Other labs include AST of 76, ALT of 151, Alk Phos of 155, Albumin 2.5. Patient is quite tachypneic on the BiPAP and has a hard time catching her breath. Chest xray today shows diffuse increased lung markings can be compatible with atypical pneumonia. Xray reviewed by attending. Patient is being followed closely by pulmonary and ID services, her prognosis remains guarded, and she is currently a Do Not Resuscitate. She continues on Zinc, lovenox, baricitinib and Decadron were discontinued; patients switched to IV Solumedrol, and started on IV cefepime today by pulmonary team. 06/13/2021 Patients daughter is at the beside today with patient. She is on a 100% BiPAP with an oxygen saturation of 86 to 87%, she is tachypneic with respirations in the mid to high 30s, goal should be in the 20s. She is requesting IV push morphine 2 mg every 4 hours as it seems to help her calm down and slow her brenda athing and she feels she is able to take a deeper breath. Vital signs today, afebrile, although she did have a low grade temp of 99 early this morning, heart rate 105, blood pressure 140/72. Labs reviewed today show a white count of 27.3, sodium of 126, potassium of 5, chloride 91, CO2 31, BUN 22, creatinine 0.49, sugars in the 160's. AST 59, ALT 109, ALK phos 154, LDH 2022, CRP 37.4. Procalcitonin yesterday was 0.53. Repeat urinalysis shows cloudy, 1+ protein, 1+ ketones, occasional bacteria, rare mucus. ABGs today pCO2 53, pO2 55, HCO3 31, total CO2 33, O2 saturation 89.0. Repeat urine culture sent. Blood cultures pending. Discussed prognosis with daughter, for now they would both like to continue with supportive care. Patient is a do not resuscitate. ROS Constitutional: Denied any fever, reports fatigue Cardio vascular: denied any chest pain, palpitations Gastrointestinal denied any nausea vomiting Pulmonary: Reports SOB at rest, non productive cough Neurologic denied any new focal deficits All inpatient medications were reviewed and appropriate changes in these medications as dictated in the interval history and assessment and plan. PHYSICAL EXAMINATION: GENERAL: The patient is alert and oriented x3, appears in respiratory distress despite 100% BiPAP support, Well developed, well nourished. Obese. HEENT: Pupils are round and equally reacting to light. EOMI. No scleral icterus. No conjunctival pallor. Normocephalic, atraumatic. No pharyngeal erythema. No thyromegaly. CARDIOVASCULAR: S1 and S2 present. No murmurs, rubs, or gallops. tachycardic. PULMONARY: Diminished throughout, scattered crackles ABDOMEN: Soft, nontender, nondistended, normoactive bowel sounds. No palpable organomegaly. MUSCULOSKELETAL: No joint swelling or deformity. EXTREMITIES: No cyanosis, clubbing, or pedal edema. NEUROLOGICAL: Gross neurological examination did not reveal any focal deficits. SKIN: No rashes. Assessment and plan Assessment Acute hypoxic respiratory failures secondary to COVID 19 requiring 100% BiPAP with marginal oxygen saturations, which oxygen demands have steadily increased this admission. Current saturation is 86-87%. Acute COVID 19 pneumonia Rule out sepsis, possible underlying bacterial infection, procalcitonin 0.53, urine culture and blood cultures are pending. UTI with E. Coli present on admission, finished course of antibiotic therapy with rocephin Leukocytosis secondary to above, continues to increase despite antibiotic therapy, could be steroid affect, decadron was switched to solu-medrol today. Lactic acid normal today at 1.4, possibility of sepsis. Elevated procalcitonin Hypertension Elevated inflammatory markers of COVID-19 Transaminitis secondary systemic inflammation from COVID-19 Elevated DD no evidence of pulmonary embolism Hyperglycemia Obesity History of cholecystectomy GI Prophylaxis: Pepcid DVT Prophylaxis: Lovenox DO NOT RESUSCITATE Plan Continue IV antibiotics Continue Lovenox, vitamins Continue IV Solu-medrol Pending finalized cultures Continue novolog Continue all other supportive care Prognosis guarded Repeat labs in the AM Objective - Vital Signs Vital signs: Vital Signs Temp 96.4 F L 06/13/21 08:00 Pulse 103 H 06/13/21 08:00 Resp 38 H 06/13/21 08:00 BP 143/63 06/13/21 08:00 Pulse Ox 88 L 06/13/21 08:00 Intake & Output 06/12/21 06/13/21 06/13/21 18:59 06:59 18:59 Intake Total 800 100 Output Total 600 500 Balance 200 -500 100 Intake: Intake, IV Titration 800 100 Amount Cefepime 2 gm In Sodium 100 Chloride 0.9% 100 ml @ 25 mls/hr IVPB Q12H [facility] Rx# :[id number] Sodium Chloride 0.9% 1, 700 000 ml @ 100 mls/hr IV . Q10H [facility] Rx#:[id number] Sodium Chloride 0.9% 1, 100 000 ml @ 50 mls/hr IV . Q20H [facility] Rx#:[id number] Oral 0 0 Output: Urine 600 500 Other: Voiding Method Bedside Commode Bedside Commode Bedside Commode - Labs CBC & Chem 7: 06/13/21 08:49 06/13/21 08:49 Labs: Abnormal Lab Results - Last 24 Hours (Table) 06/12/21 06/12/21 06/12/21 Range/Units 11:54 13:22 16:54 WBC (3.8-10.6) k/uL Sodium (137-145) mmol/L Carbon Dioxide (22-30) mmol/L BUN (7-17) mg/dL Creatinine (0.52-1.04) mg/dL Glucose (74-99) mg/dL POC Glucose (mg/dL) 115 H (75-99) mg/dL AST (14-36) U/L ALT (4-34) U/L Alkaline Phosphatase (38-126) U/L Lactate Dehydrogenase (313-618) U/L Total Protein (6.3-8.2) g/dL Albumin (3.5-5.0) g/dL Procalcitonin 0.53 H (0.02-0.09) ng/mL Urine Appearance Cloudy H (Clear) Urine Protein 1+ H (Negative) Urine Ketones 1+ H (Negative) Urine RBC 21 H (0-5) /hpf Amorphous Sediment Rare H (None) /hpf Urine Bacteria Occasional H (None) /hpf Urine Mucus Rare H (None) /hpf 06/12/21 06/12/21 06/13/21 Range/Units 17:13 19:56 06:10 WBC (3.8-10.6) k/uL Sodium (137-145) mmol/L Carbon Dioxide (22-30) mmol/L BUN (7-17) mg/dL Creatinine (0.52-1.04) mg/dL Glucose (74-99) mg/dL POC Glucose (mg/dL) 161 H 144 H 128 H (75-99) mg/dL AST (14-36) U/L ALT (4-34) U/L Alkaline Phosphatase (38-126) U/L Lactate Dehydrogenase (313-618) U/L Total Protein (6.3-8.2) g/dL Albumin (3.5-5.0) g/dL Procalcitonin (0.02-0.09) ng/mL Urine Appearance (Clear) Urine Protein (Negative) Urine Ketones (Negative) Urine RBC (0-5) /hpf Amorphous Sediment (None) /hpf Urine Bacteria (None) /hpf Urine Mucus (None) /hpf 06/13/21 06/13/21 Range/Units 08:49 08:49 WBC 27.3 H (3.8-10.6) k/uL Sodium 126 L (137-145) mmol/L Carbon Dioxide 31 H (22-30) mmol/L BUN 22 H (7-17) mg/dL Creatinine 0.49 L (0.52-1.04) mg/dL Glucose 157 H (74-99) mg/dL POC Glucose (mg/dL) (75-99) mg/dL AST 59 H (14-36) U/L ALT 109 H (4-34) U/L Alkaline Phosphatase 154 H (38-126) U/L Lactate Dehydrogenase 2023 H (313-618) U/L Total Protein 6.2 L (6.3-8.2) g/dL Albumin 2.5 L (3.5-5.0) g/dL Procalcitonin (0.02-0.09) ng/mL Urine Appearance (Clear) Urine Protein (Negative) Urine Ketones (Negative) Urine RBC (0-5) /hpf Amorphous Sediment (None) /hpf Urine Bacteria (None) /hpf Urine Mucus (None) /hpf
[2021-06-13 21:10] LABS: Glucose,Whole Blood 149 mg/dL (75-99)
--- NOTE | 2021-06-13 23:03 | PN ---
PROGRESS NOTE DATE OF SERVICE: 06/13/2021 REASON FOR FOLLOWUP: COVID-19 pneumonia. INTERVAL HISTORY: The patient is afebrile. The patient remains BiPAP-dependent; remains lethargic, but less than usual. No vomiting, diarrhea or any other changes reported by the daughter. PHYSICAL EXAMINATION: Blood pressure 140/78 with a pulse of 101, temperature 97.7. She is 90% on BiPAP. General description is a middle-aged female lying in bed in no distress. Respiratory system: Unlabored breathing, decreased intensity of breath sounds. No wheeze. Heart S1, S2. Regular rate and rhythm. Abdomen soft, no tenderness. LABS: Hemoglobin is 11.8, white count 27.3, BUN of , creatinine 0.49. Liver enzymes are trending down. DIAGNOSTIC IMPRESSION AND PLAN: Patient with acute respiratory failure secondary to COVID-19 pneumonia in this patient who did have overall worsening of her respiratory status. Patient is currently on Lovenox, Solu-Medrol, zinc and ascorbic acid along with respiratory support. Prognosis remains guarded. Daughter at the bedside for my evaluation. Questions were answered. MMODL / IJN: [id number] /
[2021-06-14] MEDS: MORPHINE SULFATE 2 MG/ML SYRINGE IVP PRN ×6 (00:18→20:54)
[2021-06-14] MEDS: methylPREDNISolone SOD SUCCI 125 MG/2 ML VIAL IV SCH ×4 (03:53→22:30)
[2021-06-14] MEDS: CEFEPIME 2 GM in SODIUM CHLORIDE 0.9% 100 ML IVPB SCH ×2 (03:53→14:29)
[2021-06-14 06:28] LABS: Glucose,Whole Blood 147 mg/dL (75-99)
[2021-06-14] MEDS: INSULIN ASPART (NovoLOG) 100 UNIT/ML VIAL SQ SCH ×4 (06:32→22:30)
[2021-06-14] MEDS: ALBUTEROL HFA INHALER INHALATION SCH ×4 (07:48→20:51)
[2021-06-14 08:09] LABS: HGB 12.4 gm/dL (11.4-16.0); Hypochromasia Slight; MCHC 32.7 g/dL (31.0-37.0); MCV 94.6 fL (80.0-100.0); Mean Platelet Volume 8.1; Platelet Count 418 k/uL (150-450); RBC 4.01 m/uL (3.80-5.40); RDW 12.8 % (11.5-15.5); WBC 29.9 k/uL (3.8-10.6)
[2021-06-14 08:26] LABS: ALT 137 U/L (4-34); African American GFR (CKD) >90 (>60 ml/min/1.73 sqM); Anion Gap 6 mmol/L; Blood Urea Nitrogen 23 mg/dL (7-17); Calcium 8.6 mg/dL (8.4-10.2); Carbon Dioxide 26 mmol/L (22-30); Chloride 96 mmol/L (98-107); Glucose 150 mg/dL (74-99); Non-African American GFR(CKD) >90 (>60 ml/min/1.73 sqM); Sodium 128 mmol/L (137-145); Total Bilirubin 0.8 mg/dL (0.2-1.3)
[2021-06-14 08:31] LABS: AST 93 U/L (14-36); Albumin 2.6 g/dL (3.5-5.0); Alkaline Phosphatase 166 U/L (38-126); Potassium 5.9 mmol/L (3.5-5.1); Total Protein 6.5 g/dL (6.3-8.2)
[2021-06-14] MEDS: ENOXAPARIN 40 MG/0.4 ML SYRINGE SQ SCH ×2 (09:25→22:30)
[2021-06-14 12:00] LABS: Glucose,Whole Blood 138 mg/dL (75-99)
[2021-06-14] MEDS: ASCORBIC ACID 500 MG TAB PO SCH ×2 (12:16→20:40)
[2021-06-14] MEDS: MULTIVITAMINS, THERA 1 EACH TAB PO SCH (12:17)
[2021-06-14] MEDS: CYANOCOBALAMIN 500 MCG TAB PO SCH (12:17)
[2021-06-14] MEDS: ZINC SULFATE 220 MG CAP PO SCH (12:17)
[2021-06-14] MEDS: SODIUM CHLORIDE 0.9% 1,000 ML IV SCH (12:17)
[2021-06-14] MEDS: FAMOTIDINE 20 MG TAB PO SCH ×2 (12:17→20:40)
[2021-06-14] MEDS: lisinopriL 5 MG TAB PO SCH (12:17)
[2021-06-14] MEDS: CHOLECALCIFEROL 25 MCG (1000 IU) TABLET PO SCH (12:17)
--- NOTE | 2021-06-14 15:46 | PN ---
PROGRESS NOTE DATE OF SERVICE: 06/14/2021 REASON FOR FOLLOWUP: COVID-19 pneumonia. INTERVAL HISTORY: The patient is afebrile. The patient is more awake and alert. The patient mentioned is breathing slightly comfortably. Remains to be BiPAP dependent. Denies any chest pain. No worsening cough or sputum production. No abdominal pain or diarrhea. PHYSICAL EXAMINATION: Blood pressure 133/79 with a pulse of 105, temperature of 98.1. General description is a middle-aged female up in the bed in no distress. Respiratory system: Unlabored breathing, coarse breath sounds bilaterally. No wheeze. Heart S1, S2. Regular rate and rhythm. Abdomen soft, no tenderness. LABS: Hemoglobin is 12.4, white count 29.9, creatinine 0.43. DIAGNOSTIC IMPRESSION AND PLAN: 1. Patient with acute respiratory failure secondary to Covid 19 pneumonia with significant worsening, possibly ID. The patient did have elevated liver enzymes and hence Baricitinib was put on hold. However, in view of improvement in the may benefit from restarting. The patient to continue with Lovenox, Solu- Medrol, zinc and ascorbic acid. 2. Elevated white count more likely steroid effect and no evidence of any worsening infection. Continue supportive care. MMODL / IJN: [id number] /
--- NOTE | 2021-06-14 15:57 | P.PN ---
Subjective Progress Note Date: 06/14/21 Principal diagnosis: Acute hypoxic and short failure secondary to COVID-19 pneumonia The patient is seen today 06/06/2021 in follow-up on the regular medical floor. She is currently sitting up in bed. Awake and alert in no acute distress. Her oxygen requirements however continued to climb. She is now on 10 L high flow nasal cannula to maintain O2 saturation in the high 80s low 90s. She is morbidly obese. She has been treated for COVID-19 pneumonia. She was outside the window for Remdesivir. She is not vaccinated. Her CAT scan yesterday ruled out pulmonary embolism. There is however extensive bilateral opacities consistent with COVID-19 pneumonia. She also was treated for an E. coli UTI and remains on IV Rocephin. She is not a candidate for Baricitinib. White count 18.0. Hemoglobin 13.5. Lymphocytes 0.32. D-dimer 1.08. Sodium 137. Potassium 4.2. Creatinine 0.52. AST 128. ALT 182. LDH 581. She remains on Lovenox, Decadron, vitamin supplements. 0.9 normal saline at 50 MLS per hour. The patient is seen today 06/07/2021 in follow-up on the regular medical floor. She is awake and alert in no acute distress. She is dyspneic with conversation. Dyspneic with minimal exertion. She is requiring 15 L high flow nasal cannula to maintain O2 saturations in the low 90s. She is afebrile. Hemodynamically stable. Blood cultures revealed no growth. Urine culture positive for E. coli. White count 15.7. Hemoglobin 12.0. Leukocytes 0.95. Sodium 136. Potassium 4.3. Creatinine 0.5. Glucose 1:15. AST 108. ALT 230. She is continued on ceftriaxone. She is continued on Lovenox, Decadron, vitamin supplements. She was outside the window for Remdesivir. UTI rules out Baricitinib. The patient is seen today 06/08/2021 in follow-up on the selective care unit. She is still requiring 15 L high flow nasal cannula plus a nonrebreather mask. She had been transferred here from the regular medical floor for closer observation. She is currently sitting up in a chair at the bedside. She states she is doing about the same compared to yesterday. O2 saturations in the low 90s. She's been afebrile. Hemodynamically stable. Urine culture is positive for E. coli. Sputum culture pending. Blood cultures reveal no growth to date. Blood glucose 158. She remains on Decadron, Lovenox, vitamin supplements. The patient is seen today 06/09/2021 in follow-up on the selective care unit. She rarely sitting up in a chair at the bedside. She is still requiring 15 L high flow nasal cannula +100% nonrebreather mask. chest x-ray continues to show bilateral multifocal and confluent opacities consistent with COVID-19 infection. She is getting somewhat discouraged regarding her slow progress. She is utilizing the incentive spirometer. She is up ambulating with assistance. She is continued on Decadron, Lovenox, vitamin supplements. urine culture is positive for E. coli. Blood cultures revealed no growth. Sputum culture revealed no growth. d-dimer 1.6. LDH 1550. C-reactive protein 21.4. Glucose 155. The patient is seen today 06/10/2021 in follow-up on the selective care unit. She is awake and alert. Mild respiratory distress. Sitting up in a chair at the bedside. Still requiring 15 L high flow nasal cannula +100% nonrebreather mask. We are trying to qualify her for Baricitinib however her liver enzymes have been elevated. Asymptomatic UTI and her antibiotics have been discontinued. She remains on Lovenox, Decadron, vitamin supplements. White count 18.8. Hemoglobin 13.0. Sodium 132. Potassium 4.9. Creatinine 0.51 glucose 110. AST 98. ALT 235. Reevaluated today on 06/11/2021, patient remains on the regular medical floor, she is on high flow oxygen. Patient is actually on BiPAP, and intermittently oirvo at 90% FiO2 and 60 L flow. O2 saturation is marginal. Surprisingly the patient states that she does not feel any worse today that she felt in the last few days. Tells me that she is basically about the same. is at bedside, and we discussed CODE STATUS and ventilatory support if needed patient clearly stated that she would not want to go on mechanical ventilation/no life- support machinery, she prefers to go peacefully and comfortably if her condition gets any worse. In the meantime the patient remains on treatment for her COVID- 19 infection as outlined below. I believe see count is 21.9 hemoglobin is 12.5 sodium is 127 and electrolytes are normal otherwise renal profile is normal. LDH is going up today is 1726 this is the highest it has been. C-reactive protein is trending up to 24. On 06/13/2021 patient seen in follow-up on selective care unit, she remains on BiPAP, currently with pressures of 16 and 8 and FiO2 100%, and her O2 saturations are marginal at 84-88%. Patient still tachypneic, her respiratory rate is in the upper 30s, but she looks to be a bit more comfortable, she states the morphine is helping her with anxiety, and breathlessness. She is afebrile, hemodynamically she is stable, blood cultures have been sent, urinalysis was rechecked showing 1+ protein, 1+ ketones, but no clear evidence of infection. Pro-calcitonin level came back elevated at 0.53, Baricitinib was discontinued in view of suspected sepsis, and patient was placed on cefepime. On today's labs her white blood cell count is slightly improved, and is down to 27.3, hemoglobin is 11.9, serum sodium remains low at 126, potassium is 5.0, chloride is 91, CO2 is 31, BUN is 22, creatinine 0.49, her inflammatory markers have trended up and LDH is up to 2022, CRP is up to 37.4. Her proBNP came back normal at 140, lactic acid was within normal limits at 1.4. Sputum culture previously had shown no growth, patient is not bringing up any phlegm. Lung sounds are diminished, positive for inspiratory crackles, her last chest x-ray shows diffuse increased lung markings compatible with atypical pneumonia. Patient received a dose of IV Lasix, and she has produced 1.1 L in urine output in the last 24 hours. Patient's daughter is at the bedside, she was updated on her mother's condition, the patient is adamant about being a DO NOT RESUSCITATE, she is agreeable to supportive treatment. The patient's daughter is concerned about patient's nutrition. The patient has not been able to take much by mouth related to be an BiPAP dependent. She is currently on Lovenox 40 mg twice daily for DVT prophylaxis, she is on IV Solu-Medrol 60 mg every 6 hours. Reevaluated today on 06/14/21, patient remains about the same. I don't believe the patient is making much improvement and she is not making any significant worsening. Patient remains on high flow oxygen she is on BiPAP, 100% FiO2, and she is marginal at best. Continues to have leukocytosis, and she was noted to have elevated pro calcitonin level, hence her Baricitinib was discontinued. She did have E. coli urinary tract infection being treated, patient remains on cefepime. Asked x-ray from 2 days ago continues to show bilateral interstitial infiltrates consistent with COVID-19 pneumonia. Patient is on albuterol, a scorbic acid, cefepime, vitamin D, Lovenox 40 mg subcu twice a day, Pepcid, lisinopril, methylprednisolone 60 every 6, she is also on morphine when necessary, and on zinc. IV fluids at 50 mL per hour. Objective - Vital Signs Vital signs: Vital Signs Temp 98.1 F 06/14/21 12:00 Pulse 105 H 06/14/21 14:00 Resp 39 H 06/14/21 14:00 BP 173/79 06/14/21 12:00 Pulse Ox 87 L 06/14/21 08:00 Intake & Output 06/13/21 06/14/21 06/14/21 18:59 06:59 18:59 Intake Total 100 0 240 Output Total 800 200 125 Balance -700 -200 115 Intake: Intake, IV Titration 100 Amount Sodium Chloride 0.9% 1, 100 000 ml @ 50 mls/hr IV . Q20H [facility] Rx#:[id number] Oral 0 0 240 Output: Urine 800 200 125 Other: Voiding Method Bedside Commode Bedside Commode Bedside Commode - Exam GENERAL EXAM: 65-year-old female on BiPAP. Patient has conversational dyspnea. HEAD: Normocephalic. EENT: PERRLA, MS, nonicteric, no neck masses no JVD. CHEST: No chest wall deformity. LUNGS: Bilateral crackles persists. CVS: S1 and S2 normal with no audible murmur, regular rhythm. ABDOMEN: No hepatosplenomegaly, normal bowel sounds, no guarding or rigidity. SKIN: No rashes CENTRAL NERVOUS SYSTEM: No focal deficits, tone is normal in all 4 extremities. EXTREMITIES: There is no peripheral edema. No clubbing, no cyanosis. Peripheral pulses are intact. - Labs CBC & Chem 7: 06/14/21 07:52 06/14/21 07:52 Labs: Abnormal Lab Results - Last 24 Hours (Table) 06/13/21 06/13/21 06/14/21 Range/Units 16:55 20:40 06:23 WBC (3.8-10.6) k/uL Sodium (137-145) mmol/L Potassium (3.5-5.1) mmol/L Chloride (98-107) mmol/L BUN (7-17) mg/dL Creatinine (0.52-1.04) mg/dL Glucose (74-99) mg/dL POC Glucose (mg/dL) 169 H 149 H 147 H (75-99) mg/dL AST (14-36) U/L ALT (4-34) U/L Alkaline Phosphatase (38-126) U/L Albumin (3.5-5.0) g/dL 06/14/21 06/14/21 06/14/21 Range/Units 07:52 07:52 11:57 WBC 29.9 H (3.8-10.6) k/uL Sodium 128 L (137-145) mmol/L Potassium 5.9 H (3.5-5.1) mmol/L Chloride 96 L (98-107) mmol/L BUN 23 H (7-17) mg/dL Creatinine 0.43 L (0.52-1.04) mg/dL Glucose 150 H (74-99) mg/dL POC Glucose (mg/dL) 138 H (75-99) mg/dL AST 93 H (14-36) U/L ALT 137 H (4-34) U/L Alkaline Phosphatase 166 H (38-126) U/L Albumin 2.6 L (3.5-5.0) g/dL Microbiology - Last 24 Hours (Table) 06/12/21 13:29 Blood Culture - Preliminary Blood No Growth after 48 hours 06/12/21 13:22 Blood Culture - Preliminary Blood No Growth after 48 hours 06/13/21 18:40 Urine Culture - Preliminary Urine,Voided Assessment and Plan Assessment: Impression: Acute hypoxic refers failure secondary to COVID-19 pneumonia, patient was out of the window for Remdesivir she is not vaccinated , Baricitinib was started on 06/12 however had to be discontinued because of elevated pro calcitonin and leukocytosis. Patient has also urinary tract infection. Continue to E. coli. Remains on antibiotics in the form of cefepime Negative CT angiogram for pulmonary embolism. Acute COVID-19 pneumonia Morbid obesity, BMI of 49.6 Elevated inflammatory markers second to COVID-19 pneumonia Recent urinary tract infection secondary to E. coli treated with Rocephin and asymptomatic Recommendation: Continue oxygen and titrate accordingly Continue BiPAP patient is on 16/8 FiO2 100%. Continue COVID-19 cocktail. DO NOT RESUSCITATE CODE STATUS. This was clarified with the patient on 2 separate occasions. Will continue to follow prognosis is relatively poor and guarded. Time with Patient: Less than 30
[2021-06-14] MEDS ORDERED: LORazepam 2 MG/ML INJ IV STA (16:00)
[2021-06-14 17:16] LABS: Glucose,Whole Blood 189 mg/dL (75-99)
[2021-06-14 17:19] VITALS: BP 156/74; PULSE 115; TEMP 98
[2021-06-14 20:53] LABS: Glucose,Whole Blood 167 mg/dL (75-99)
[2021-06-14] MEDS ORDERED: MORPHINE SULFATE 2 MG/ML SYRINGE IV PRN (21:35)
[2021-06-14] MEDS ORDERED: LORazepam 2 MG/ML INJ IV PRN (21:35)
[2021-06-14] MEDS ORDERED: ATROPINE OPHTH SOLN 1% 5ML BTL SUBLINGUAL PRN (21:35)
[2021-06-14] MEDS ORDERED: SCOPOLAMINE 1.5MG/72HR PATCH TRANSDERM SCH (21:45)
[2021-06-14] MEDS ORDERED: MORPHINE SULFATE (100 MG/2 ML) 100 MG in SODIUM CHLORIDE 0.9% 100 ML IV SCH (21:45)
[2021-06-14 23:28] VITALS: RESP 24
--- NOTE | 2021-07-10 14:11 | P.PN ---
Subjective Progress Note Date: 06/14/21 Principal diagnosis: Acute hypoxic respiratory failure secondary to COVID-19 pneumonia 06/12/2021 Patient evaluated today sitting up in the chair, she is on a BiPAP with an FiO2 of 100%, her oxygen saturations are marginal at 88%. Blood pressure, 140/65, h eart rate 117, afebrile. Lactic acid today 1.4, BNP 140. WBC count today increased to 32.3., Sodium was 125 today and potassium 5.3, we did give a one time dose of IV lasix and stopped the fluids and will repeat the sodium tomorrow. Other labs include AST of 76, ALT of 151, Alk Phos of 155, Albumin 2.5. Patient is quite tachypneic on the BiPAP and has a hard time catching her breath. Chest xray today shows diffuse increased lung markings can be compatible with atypical pneumonia. Xray reviewed by attending. Patient is being followed closely by pulmonary and ID services, her prognosis remains guarded, and she is currently a Do Not Resuscitate. She continues on Zinc, lovenox, baricitinib and Decadron were discontinued; patients switched to IV Solumedrol, and started on IV cefepime today by pulmonary team. 06/13/2021 Patients daughter is at the beside today with patient. She is on a 100% BiPAP with an oxygen saturation of 86 to 87%, she is tachypneic with respirations in the mid to high 30s, goal should be in the 20s. She is requesting IV push morphine 2 mg every 4 hours as it seems to help her calm down and slow her breathing and she feels she is able to take a deeper breath. Vital signs today, afebrile, although she did have a low grade temp of 99 early this morning, heart rate 105, blood pressure 140/72. Labs reviewed today show a white count of 27.3, sodium of 126, potassium of 5, chloride 91, CO2 31, BUN 22, creatinine 0.49, sugars in the 160's. AST 59, ALT 109, ALK phos 154, LDH 2022, CRP 37.4. Procalcitonin yesterday was 0.53. Repeat urinalysis shows cloudy, 1+ protein, 1+ ketones, occasional bacteria, rare mucus. ABGs today pCO2 53, pO2 55, HCO3 31, total CO2 33, O2 saturation 89.0. Repeat urine culture sent. Blood cultures pending. Discussed prognosis with daughter, for now they would both like to continue with supportive care. Patient is a do not resuscitate. 06/14/2021 Patient's condition remains the same. Still requiring high flow oxygen and is on BiPAP with 100% FiO2. Patient is being cardiogram antibiotics in the form of cefepime per E. coli urinary tract infection. Baricitinib has been discontinued. Chest x-ray showed bilateral interstitial infiltrates consistent with COVID-19 pneumonia. Patient is being continued multivitamins, Lovenox subcu and will prednisone 60 mg every 6 hourly. Pain control with morphine IV and continued as needed gentle IV hydration. Pulmonary is on board. Prognosis poor at this time. Current CODE STATUS is DNR/DNI. Current medications reviewed. Objective - Vital Signs Vital signs: Vital Signs Temp 98.0 F 06/14/21 16:00 Pulse 115 H 06/14/21 16:00 Resp 43 H 06/14/21 16:00 BP 156/74 06/14/21 16:00 Pulse Ox 83 L 06/14/21 16:00 Intake & Output 06/13/21 06/14/21 06/14/21 18:59 06:59 18:59 Intake Total 100 0 240 Output Total 800 200 125 Balance -700 -200 115 Intake: Intake, IV Titration 100 Amount Sodium Chloride 0.9% 1, 100 000 ml @ 50 mls/hr IV . Q20H [facility] Rx#:[id number] Oral 0 0 240 Output: Urine 800 200 125 Other: Voiding Method Bedside Commode Bedside Commode Bedside Commode - Exam PHYSICAL EXAMINATION: GENERAL: The patient is alert and oriented x2-3, appears in respiratory distress despite 100% BiPAP support, Well developed, well nourished. Obese. HEENT: Pupils are round and equally reacting to light. EOMI. No scleral icterus. No conjunctival pallor. Normocephalic, atraumatic. No pharyngeal erythema. No thyromegaly. CARDIOVASCULAR: S1 and S2 present. No murmurs, rubs, or gallops. tachycardic. PULMONARY: Diminished throughout, scattered crackles ABDOMEN: Soft, nontender, nondistended, normoactive bowel sounds. No palpable organomegaly. MUSCULOSKELETAL: No joint swelling or deformity. EXTREMITIES: No cyanosis, clubbing, or pedal edema. NEUROLOGICAL: Gross neurological examination did not reveal any focal deficits. SKIN: No rashes. - Labs CBC & Chem 7: 06/14/21 07:52 06/14/21 07:52 Labs: Abnormal Lab Results - Last 24 Hours (Table) 06/13/21 06/14/21 06/14/21 Range/Units 20:40 06:23 07:52 WBC 29.9 H (3.8-10.6) k/uL Sodium (137-145) mmol/L Potassium (3.5-5.1) mmol/L Chloride (98-107) mmol/L BUN (7-17) mg/dL Creatinine (0.52-1.04) mg/dL Glucose (74-99) mg/dL POC Glucose (mg/dL) 149 H 147 H (75-99) mg/dL AST (14-36) U/L ALT (4-34) U/L Alkaline Phosphatase (38-126) U/L Albumin (3.5-5.0) g/dL 06/14/21 06/14/21 06/14/21 Range/Units 07:52 11:57 17:13 WBC (3.8-10.6) k/uL Sodium 128 L (137-145) mmol/L Potassium 5.9 H (3.5-5.1) mmol/L Chloride 96 L (98-107) mmol/L BUN 23 H (7-17) mg/dL Creatinine 0.43 L (0.52-1.04) mg/dL Glucose 150 H (74-99) mg/dL POC Glucose (mg/dL) 138 H 189 H (75-99) mg/dL AST 93 H (14-36) U/L ALT 137 H (4-34) U/L Alkaline Phosphatase 166 H (38-126) U/L Albumin 2.6 L (3.5-5.0) g/dL Microbiology - Last 24 Hours (Table) 06/12/21 13:29 Blood Culture - Preliminary Blood No Growth after 48 hours 06/12/21 13:22 Blood Culture - Preliminary Blood No Growth after 48 hours 06/13/21 18:40 Urine Culture - Preliminary Urine,Voided Assessment and Plan Assessment: Assessment and plan Assessment Acute hypoxic respiratory failures secondary to COVID 19 requiring 100% BiPAP with marginal oxygen saturations, which oxygen demands have steadily increased this admission. Current saturation is 86-87%. Acute COVID 19 pneumonia Rule out sepsis, possible underlying bacterial infection, procalcitonin 0.53, urine culture and blood cultures are pending. UTI with E. Coli present on admission, finished course of antibiotic therapy with rocephin Leukocytosis secondary to above, continues to increase despite antibiotic therapy, could be steroid affect, decadron was switched to solu-medrol today. Lactic acid normal today at 1.4, possibility of sepsis. Elevated procalcitonin Hypertension Elevated inflammatory markers of COVID-19 Transaminitis secondary systemic inflammation from COVID-19 Elevated DD no evidence of pulmonary embolism Hyperglycemia Obesity History of cholecystectomy GI Prophylaxis: Pepcid DVT Prophylaxis: Lovenox DO NOT RESUSCITATE Plan Continue IV antibiotics Continue Lovenox, vitamins Continue IV Solu-medrol Pending finalized cultures Continue novolog Continue all other supportive care Time with Patient: Greater than 30
--- NOTE | 2021-07-10 14:12 | P.DS ---
Providers Date of admission: 06/03/21 21:58 Expected date of discharge: 06/15/21 Attending physician: Larry Brown MD Consults: 06/03/21 21:43 Consult Physician Urgent Consulting Provider: Mitch Hopson Consult Reason/Comments: covid pneumonia, hypoxia Do you want consulting provider notified?: Yes 06/04/21 11:09 Consult Physician Routine Consulting Provider: Scott Finch Consult Reason/Comments: Covid Do you want consulting provider notified?: Yes Primary care physician: Stated None Hospital Course: Diagnosis Acute hypoxic respiratory failures secondary to COVID 19 requiring 100% BiPAP with marginal oxygen saturations, which oxygen demands have steadily increased this admission. Current saturation is 86-87%. Acute COVID 19 pneumonia Rule out sepsis, possible underlying bacterial infection, procalcitonin 0.53, urine culture and blood cultures are pending. UTI with E. Coli present on admission, finished course of antibiotic therapy with rocephin Leukocytosis secondary to above, continues to increase despite antibiotic therapy, could be steroid affect, decadron was switched to solu-medrol today. Lactic acid normal today at 1.4, possibility of sepsis. Elevated procalcitonin Hypertension Elevated inflammatory markers of COVID-19 Transaminitis secondary systemic inflammation from COVID-19 Elevated DD no evidence of pulmonary embolism Hyperglycemia Obesity History of cholecystectomy GI Prophylaxis: Pepcid DVT Prophylaxis: [facility] Hospital course 06/12/2021 Patient evaluated today sitting up in the chair, she is on a BiPAP with an FiO2 of 100%, her oxygen saturations are marginal at 88%. Blood pressure, 140/65, heart rate 117, afebrile. Lactic acid today 1.4, BNP 140. WBC count today increased to 32.3., Sodium was 125 today and potassium 5.3, we did give a one time dose of IV lasix and stopped the fluids and will repeat the sodium tomorrow. Other labs include AST of 76, ALT of 151, Alk Phos of 155, Albumin 2.5. Patient is quite tachypneic on the BiPAP and has a hard time catching her breath. Chest xray today shows diffuse increased lung markings can be compatible with atypical pneumonia. Xray reviewed by attending. Patient is being followed closely by pulmonary and ID services, her prognosis remains guarded, and she is currently a Do Not Resuscitate. She continues on Zinc, lovenox, baricitinib and Decadron were discontinued; patients switched to IV Solumedrol, and started on IV cefepime today by pulmonary team. 06/13/2021 Patients daughter is at the beside today with patient. She is on a 100% BiPAP with an oxygen saturation of 86 to 87%, she is tachypneic with respirations in the mid to high 30s, goal should be in the 20s. She is requesting IV push morphine 2 mg every 4 hours as it seems to help her calm down and slow her breathing and she feels she is able to take a deeper breath. Vital signs today, afebrile, although she did have a low grade temp of 99 early this morning, heart rate 105, blood pressure 140/72. Labs reviewed today show a white count of 27.3, sodium of 126, potassium of 5, chloride 91, CO2 31, BUN 22, creatinine 0.49, sugars in the 160's. AST 59, ALT 109, ALK phos 154, LDH 2022, CRP 37.4. Procalcitonin yesterday was 0.53. Repeat urinalysis shows cloudy, 1+ protein, 1+ ketones, occasional bacteria, rare mucus. ABGs today pCO2 53, pO2 55, HCO3 31, total CO2 33, O2 saturation 89.0. Repeat urine culture sent. Blood cultures pending. Discussed prognosis with daughter, for now they would both like to continue with supportive care. Patient is a do not resuscitate. 06/14/2021 Patient's condition remains the same. Still requiring high flow oxygen and is on BiPAP with 100% FiO2. Patient is being cardiogram antibiotics in the form of cefepime per E. coli urinary tract infection. Baricitinib has been discontinued. Chest x-ray showed bilateral interstitial infiltrates consistent with COVID-19 pneumonia. Patient is being continued multivitamins, Lovenox subcu and will prednisone 60 mg every 6 hourly. Pain control with morphine IV and continued as needed gentle IV hydration. Pulmonary is on board. Prognosis poor at this time. Current CODE STATUS is DNR/DNI. Patient on 06/15/2021 at 00:02. Family has been notified. Patient Condition at Discharge: Undetermined Plan - Discharge Summary Discharge Rx Participant: No New Discharge Prescriptions: No Action Ubidecarenone [Co Q-10] 100 mg PO DAILY Cholecalciferol (Vitamin D3) [Vitamin D3 (125 MCG = 5,000 IU)] 125 mcg PO DAILY Ascorbic Acid [Vitamin C] 1,000 mg PO DAILY Zinc 50 mg PO DAILY Thyroid Otc Supplement 1 tab PO DAILY Selenium 100 mcg PO DAILY Multivitamins, Thera [Multivitamin (formulary)] 1 tab PO DAILY Cyanocobalamin (Vitamin B-12) [Vitamin B-12] 1,000 mcg PO DAILY Discharge Medication List Ascorbic Acid [Vitamin C] 1,000 mg PO DAILY 06/03/21 [History] Cholecalciferol (Vitamin D3) [Vitamin D3 (125 MCG = 5,000 IU)] 125 mcg PO DAILY 06/03/21 [History] Cyanocobalamin (Vitamin B-12) [Vitamin B-12] 1,000 mcg PO DAILY 06/03/21 [History] Multivitamins, Thera [Multivitamin (formulary)] 1 tab PO DAILY 06/03/21 [History] Selenium 100 mcg PO DAILY 06/03/21 [History] Thyroid Otc Supplement 1 tab PO DAILY 06/03/21 [History] Ubidecarenone [Co Q-10] 100 mg PO DAILY 06/03/21 [History] Zinc 50 mg PO DAILY 06/03/21 [History] Follow up Appointment(s)/Referral(s): Bri Dutton III, MD [STAFF PHYSICIAN] - 1-2 Days Discharge Disposition: - Preliminary Cause of Preliminary Cause of : Acute hypoxic respiratory failures secondary to COVID 19
== END 2021-06-15 03:08 | disposition expired | DRG 177 ==
LOC: EC 19:17 → 4SSUR 21:58 → 6NMEDSUR 06-04 05:12 → 3SCARD 06-07 16:16
PROVIDERS: ADMIT Internal Medicine; ATTEND Internal Medicine
PROC: 5A09457 Assistance with Respiratory Ventilation, 24-96 Consecutive Hours, Continuous Positive Airway Pressure (ICD-10-PCS; 2021-06-11)
PROC: XW0DXM6 Introduction of Baricitinib into Mouth and Pharynx, External Approach, New Technology Group 6 (ICD-10-PCS; principal; 2021-06-12)
DX: U07.1 COVID-19 (principal); J12.82 Pneumonia due to coronavirus disease 2019; J96.01 Acute respiratory failure with hypoxia; A41.9 Sepsis, unspecified organism; N39.0 Urinary tract infection, site not specified; E87.1 Hypo-osmolality and hyponatremia; Z68.42 Body mass index [BMI] 45.0-49.9, adult; Z66 Do not resuscitate; E66.01 Morbid (severe) obesity due to excess calories; B96.20 Unspecified Escherichia coli [E. coli] as the cause of diseases classified elsewhere; R74.01 Elevation of levels of liver transaminase levels; R73.9 Hyperglycemia, unspecified; E86.1 Hypovolemia; F41.9 Anxiety disorder, unspecified; I10 Essential (primary) hypertension; Z88.1 Allergy status to other antibiotic agents; Z88.0 Allergy status to penicillin; Z91.040 Latex allergy status; Z90.49 Acquired absence of other specified parts of digestive tract
CPT/HCPCS: 36415; 36600; 71045; 71275; 80048; 80053; 81001; 82728; 82805; 83605; 83615; 83735; 83880; 83930; 83935; 84145; 84300; 84439; 84443; 84481; 85025; 85027; 85379; 85610; 85730; 86140; 87040; 87070; 87077; 87086; 87186; 87205; 87635; 93005; 93970; 94640; 94660; 96372; 99285